=== PATIENT | female | born 1950 | race Caucasian/White ===

== ENCOUNTER 2020-07-24 13:57 | Outpatient (REF) | payer MEDICARE, SELFPAY ==
[2020-07-24 14:35] LABS: Appearance Urine CLEAR; Color Urine STRAW; Glucose Urine UA NEG (NEG); Leukocyte Esterase Urine NEG (NEG); Nitrite Urine NEG (NEG); Urine Blood NEG (NEG); Urine Ketones NEG (NEG); Urine Protein NEG (NEG-TRACE)
== END 2020-07-24 13:58 | disposition home or self-care (01) ==
LOC: HO.LAB 13:57
PROVIDERS: PCP Nurse Practitioner Family; Visit Provider Nurse Practitioner Family
DX: R31.9 Hematuria, unspecified (principal)
CPT/HCPCS: 81003

== ENCOUNTER 2020-08-10 14:26 | Outpatient (REF) | payer MEDICARE, OTHER, SELFPAY ==
[2020-08-13 01:52] LABS: HPV mRNA E6/E7 rflx Not Detected (Not Detected)
== END 2020-08-10 14:27 | disposition home or self-care (01) ==
LOC: HO.LAB 14:26
PROVIDERS: PCP Nurse Practitioner Family; Visit Provider Obstetrics & Gynecology
DX: N95.0 Postmenopausal bleeding (principal)
CPT/HCPCS: 36415; 87624; 88142; 99202

== ENCOUNTER 2020-08-19 10:53 | Outpatient (REF) | payer MEDICARE, OTHER, SELFPAY ==
--- NOTE | ~2020-08-19 | US_ITS ---
EXAMINATION: US PELVIS CLINICAL INFORMATION: Postmenopausal bleeding COMPARISON: None TECHNIQUE: Transabdominal pelvic ultrasound FINDINGS: Uterus: The uterus is anteverted and measures 5.4 x 1.9 x 3.3 cm. The double wall endometrial thickness is 2 mm. The uterus is smooth in contour and has normal myometrial echogenicity. No visible fibroid. Adnexa: The ovaries are not seen.. There is no pelvic ascites or fluid collection. US/US pelvic complete IMPRESSION: Normal-appearing uterus. Ovaries not seen.
== END 2020-08-19 10:54 | disposition home or self-care (01) ==
LOC: HO.US 10:53
PROVIDERS: Visit Provider Obstetrics & Gynecology
DX: N95.0 Postmenopausal bleeding (principal)
CPT/HCPCS: 76856

== ENCOUNTER → 2020-08-31 10:51 | Outpatient (BNVA) | payer MEDICARE, SELFPAY | PROVIDERS: PCP Nurse Practitioner Family; Visit Provider Obstetrics & Gynecology | CPT/HCPCS: Q3014 ==

== ENCOUNTER 2020-10-26 11:19 | Outpatient (REF) | payer MEDICARE, SELFPAY ==
[2020-10-26 12:35] LABS: MANUAL DIFF FLAG NO
[2020-10-26 12:40] LABS: Basophils Percent Auto 0.8 % (0-2); Eosinophils Absolute Auto 0.1 X10*3/uL (0.0-0.4); Eosinophils Percent Auto 1.4 % (0-4); Hematocrit 39.6 % (37-47); Hemoglobin 12.9 g/dl (12.0-16.0); Imm Gran Abs Auto 0.01 X10*3/uL (0.00-0.03); Imm Gran Pct Auto 0.2 % (0.0-0.4); Lymphocytes Absolute Auto 1.3 X10*3/uL (1.2-4.9); Lymphocytes Percent Auto 25.8 % (20-40); Mean Corpuscular HGB Conc 32.6 g/dl (31.0-35.0); Mean Corpuscular Volume 92.1 fL (80-98); Mean Platelet Volume 10.3 fL (9.4-12.3); Monocytes Absolute Auto 0.5 X10*3/uL (0.1-1.2); Monocytes Percent Auto 10.6 % (2-11); Neutrophils Percent Auto 61.2 % (45-73); Platelet Count 176 X10*3/uL (160-400); Red Cell Distribution Width 12.5 % (11.0-16.0); White Blood Count 4.9 X10*3/uL (4.8-10.8)
[2020-10-26 13:44] LABS: Alanine Aminotransferase 12 U/L (0-31); Albumin Level 4.1 g/dL (3.5-5.0); Alkaline Phosphatase 98 U/L (39-117); Anion Gap 11 (12-20); Aspartate Amino Transferase 21 U/L (5-31); Bilirubin Total 0.7 mg/dL (0.0-1.0); Blood Urea Nitrogen 21 mg/dL (9-16); Calcium 9.1 mg/dL (8.4-10.2); Carbon Dioxide 27 mmol/L (22-29); Chloride 106 mmol/L (96-108); Cholesterol 183 mg/dL; Estimated Glomerular Filt Rate > 60; Glucose Fasting 86 mg/dL (60-99); HDL Cholesterol 47 mg/dL; LDL Cholesterol Calculated 115 mg/dl; Potassium 4.3 mmol/L (3.3-5.1); Sodium 140 mmol/L (135-145); Total Protein 6.8 g/dL (6.5-8.0); Triglycerides 106 mg/dL
[2020-11-01 14:11] LABS: Vitamin D 25-OH, D2 <4 ng/mL; Vitamin D 25-OH, D3 27 ng/mL; Vitamin D 25-OH, Total 27 ng/mL (30-100)
== END 2020-10-26 11:20 | disposition home or self-care (01) ==
LOC: HO.LAB 11:19
PROVIDERS: PCP Internal Medicine; Visit Provider Internal Medicine
DX: N95.0 Postmenopausal bleeding (principal); E55.9 Vitamin D deficiency, unspecified; E78.5 Hyperlipidemia, unspecified; D64.9 Anemia, unspecified
CPT/HCPCS: 36415; 80053; 80061; 82306; 85025

== ENCOUNTER 2020-12-11 13:44 | Outpatient (REF) | payer MEDICARE, SELFPAY ==
--- NOTE | ~2020-12-11 | MM_ITS ---
EXAMINATION: MM SCREENING DIGITAL BREAST TOMOSYNTHESIS, BILATERAL CLINICAL INFORMATION: Screening. Asymptomatic. The lifetime risk of breast cancer based on the Tyrer-Cuzick Model is 5%. COMPARISON: Mammography: 04/20/2018, 11/21/2014, 11/19/2013 TECHNIQUE: Digital breast tomosynthesis is performed in both the craniocaudal and mediolateral oblique views along with computer-aided detection (CAD). Synthesized 2D images are generated from the tomosynthesis. FINDINGS: The breasts are heterogeneously dense, which may obscure small masses (ACR BI-RADS breast composition Category c). There are no significant masses, abnormal calcifications, or other abnormalities. Parenchymal pattern is similar to prior exams. No developing density. Skin contours are smooth. MM/MM tomosynthesis screening BI IMPRESSION: No mammographic evidence of malignancy. ASSESSMENT: BI-RADS 1: Negative RECOMMENDATION: Routine annual mammography screening. This patient's information was entered into a reminder system with a target due date for their next mammogram.
--- NOTE | ~2020-12-11 | MM_ITS ---
EXAMINATION: BONE DENSITOMETRY CLINICAL INDICATION: Osteoporosis. COMPARISON: Previous BD dated 04/20/2018 and baseline BD dated 10/17/2006. TECHNIQUE: Using a [employer] DXA System (software version: 13.1) manufactured by [employer], dual-energy x-ray absorptiometry was performed of the lumbar spine and left hip. The images are of good technical quality. Summary results are attached. FINDINGS: AP SPINE L1-L4: Current: BMD 0.739 g/cm2, Z-score -1.4, T-score -3.7, osteoporosis, 4.2% decrease from previous, 14.5% decrease from baseline (<5% change is not significant). Prior: BMD 0.771 g/cm2. Baseline: BMD 0.864 g/cm2. LEFT FEMUR, NECK: Current: BMD 0.687 g/cm2, Z-score -0.3, T-score -2.5, osteoporosis. Prior: BMD 0.724 g/cm2. Baseline: BMD 0.817 g/cm2. LEFT FEMUR, TOTAL: Current: BMD 0.677 g/cm2, Z-score -0.6, T-score -2.6, osteoporosis, 4.1% decrease from previous, 19.8% decrease from baseline (<5% change is not significant). Prior: BMD 0.706 g/cm2. Baseline: BMD 0.844 g/cm2. IDENTIFIED RISK FACTORS: Menopause, osteoporosis. HISTORY OF FRACTURE: None listed. MEDICATIONS: Calcium, vitamin D. MM/XR DEXA axial skeleton IMPRESSION: 1. DIAGNOSIS: Osteoporosis based on the lowest T-score value of -3.7 in the lumbar spine applying World Health Organization criteria. 2. 10-YEAR FRACTURE RISK PREDICTION, FRAX: Major osteoporotic fracture (clinical spine, forearm, hip or shoulder) 14.2%. Hip fracture 4.3%. 3. Treatment Recommendations: NOF guidelines recommend consideration for treatment in postmenopausal women and men age 50 and older presenting with the following: -A hip or vertebral (clinical or morphometric) fracture. -T-score less than or equal to -2.5 at the femoral neck or spine after appropriate evaluation to exclude secondary causes. -Low bone mass at the hip or spine and a 10-year fracture probability by FRAX of greater than or equal to 3% for hip fracture or greater than or equal to 20% for major osteoporotic fracture based on the [place] adapted WHO algorithm. 4. Other Recommendations: All treatment decisions require clinical judgment and consideration of individual patient factors, including patient preferences, comorbidities, previous drug use, risk factors not captured in the FRAX model (e.g. frailty, falls, vitamin D deficiency, increased bone turnover, interval significant decline in bone density) and possible under or overestimation of fracture risk by FRAX. Additional medical evaluation for secondary cause of low bone mineral density may be appropriate. FUTURE SCAN RECOMMENDATION: People with diagnosed cases of osteoporosis or at high risk for fracture should have regular bone mineral density tests. For patients eligible for Medicare, routine testing is allowed once every 2 years. The testing frequency can be increased to one year for patients who have rapidly progressing disease, those who are receiving or discontinuing medical therapy to restore bone mass, or have additional risk factors.
== END 2020-12-11 13:45 | disposition home or self-care (01) ==
LOC: HO.MAMMO 13:44
PROVIDERS: Visit Provider Internal Medicine
DX: Z12.31 Encounter for screening mammogram for malignant neoplasm of breast (principal); Z13.820 Encounter for screening for osteoporosis; M81.0 Age-related osteoporosis without current pathological fracture; Z78.0 Asymptomatic menopausal state; Z79.899 Other long term (current) drug therapy
CPT/HCPCS: 77063; 77067; 77080

== ENCOUNTER 2021-10-25 15:37 | Outpatient (REF) | payer MEDICARE, SELFPAY ==
[2021-10-26 08:35] LABS: Lyme Abs Screen <0.90 index
== END 2021-10-25 15:38 | disposition home or self-care (01) ==
LOC: HO.LAB 15:37
PROVIDERS: PCP Internal Medicine; Visit Provider Physician Assistant
DX: T14.8XXA Other injury of unspecified body region, initial encounter (principal); W57.XXXA Bitten or stung by nonvenomous insect and other nonvenomous arthropods, initial encounter
CPT/HCPCS: 36415; 86617; 86618

== ENCOUNTER 2022-01-03 16:02 | Outpatient (REF) | payer MEDICARE, SELFPAY ==
[2022-01-05 04:57] LABS: Lyme Abs Screen <0.90 index
== END 2022-01-03 16:03 | disposition home or self-care (01) ==
LOC: HO.LAB 16:02
PROVIDERS: PCP Internal Medicine; Visit Provider Internal Medicine
DX: T14.8XXA Other injury of unspecified body region, initial encounter (principal); W57.XXXA Bitten or stung by nonvenomous insect and other nonvenomous arthropods, initial encounter
CPT/HCPCS: 36415; 86617; 86618

== ENCOUNTER → 2022-03-14 12:00 | Outpatient (REF) | payer MEDICARE, SELFPAY ==
--- NOTE | 2022-03-14 12:06 | ECG_ITS ---
Test Reason : CHEST PAIN Blood Pressure : / mmHG Vent. Rate : 091 BPM Atrial Rate : 091 BPM P-R Int : 162 ms QRS Dur : 084 ms QT Int : 368 ms P-R-T Axes : 071 044 034 degrees QTc Int : 452 ms Normal sinus rhythm Possible Left atrial enlargement RSR' or QR pattern in V1 suggests right ventricular conduction delay Borderline ECG No previous ECGs available Referred By: Lisa Thomas Electronically Signed By:PAULA BLOOM MD
[2022-03-14 14:28] LABS: Vitamin D 25-OH Total 23.2 ng/mL (>30)
== END ==
LOC: HO.CARD 12:00
PROVIDERS: PCP Internal Medicine; Visit Provider Internal Medicine
DX: R07.9 Chest pain, unspecified (principal); E55.9 Vitamin D deficiency, unspecified
CPT/HCPCS: 36415; 82306; 93005

== ENCOUNTER → 2022-05-26 10:48 | Outpatient (BNVA) | payer MEDICARE, SELFPAY | PROVIDERS: PCP Internal Medicine; Referring Provider Internal Medicine; Visit Provider Internal Medicine Cardiovascular Disease | DX: R07.9 Chest pain, unspecified (principal); J30.9 Allergic rhinitis, unspecified | CPT/HCPCS: 93005; 99202 ==

== ENCOUNTER → 2022-05-30 10:37 | Outpatient (BNVA) | payer MEDICARE, SELFPAY | PROVIDERS: PCP Internal Medicine; Visit Provider Internal Medicine Rheumatology | DX: M81.0 Age-related osteoporosis without current pathological fracture (principal); I10 Essential (primary) hypertension; E78.5 Hyperlipidemia, unspecified; E55.9 Vitamin D deficiency, unspecified; Z78.0 Asymptomatic menopausal state | CPT/HCPCS: 36415; 80053; 84100; 84443; 85025; 85652; 86140; 99202 ==

== ENCOUNTER 2022-05-30 11:48 | Outpatient (REF) | payer MEDICARE, SELFPAY ==
[2022-05-30 13:28] LABS: MANUAL DIFF FLAG NO
[2022-05-30 13:34] LABS: Basophils Absolute Auto 0.1 X10*3/uL (0.0-0.2); Basophils Percent Auto 1.1 % (0-2); Eosinophils Absolute Auto 0.1 X10*3/uL (0.0-0.4); Eosinophils Percent Auto 1.1 % (0-4); Hematocrit 39.2 % (37.0-47.0); Hemoglobin 12.4 g/dl (12.0-16.0); Imm Gran Abs Auto 0.01 X10*3/uL (0.00-0.03); Imm Gran Pct Auto 0.2 % (0.0-0.4); Lymphocytes Absolute Auto 1.1 X10*3/uL (1.2-4.9); Lymphocytes Percent Auto 25.2 % (20-40); Mean Corpuscular HGB Conc 31.6 g/dl (31.0-35.0); Mean Corpuscular Hemoglobin 29.6 pg (27.0-33.0); Mean Corpuscular Volume 93.6 fL (80.0-98.0); Mean Platelet Volume 9.8 fL (9.4-12.3); Monocytes Absolute Auto 0.5 X10*3/uL (0.1-1.2); Monocytes Percent Auto 11.1 % (2-11); Neutrophils Absolute Auto 2.7 x10*3/uL (2.0-8.3); Neutrophils Percent Auto 61.3 % (45-73); Platelet Count 187 X10*3/uL (160-400); Red Blood Count 4.19 X10*6/uL (4.20-5.50); Red Cell Distribution Width 12.4 % (11.0-16.0); White Blood Count 4.4 X10*3/uL (4.8-10.8)
[2022-05-30 13:58] LABS: Alanine Aminotransferase 13 U/L (0-31); Albumin Level 3.9 g/dL (3.5-5.0); Alkaline Phosphatase 93 U/L (39-117); Anion Gap 10 (12-20); Aspartate Amino Transferase 21 U/L (5-31); Bilirubin Total 0.5 mg/dL (0.0-1.0); Blood Urea Nitrogen 25 mg/dL (9-16); C Reactive Protein < 0.10 mg/dL (< or = 0.50); Carbon Dioxide 27 mmol/L (22-29); Chloride 107 mmol/L (96-108); Estimated Glomerular Filt Rate > 60; Glucose Random 85 mg/dL (60-115); Phosphorus 2.7 mg/dL (2.7-4.5); Potassium 4.2 mmol/L (3.3-5.1); Sodium 140 mmol/L (135-145); Total Protein 6.6 g/dL (6.5-8.0)
[2022-05-30 14:06] LABS: TSH reflex Free T4 1.45 uIU/mL (0.32-4.0)
[2022-05-30 14:16] LABS: Erythrocyte Sedimentation Rate 5 MM/HR (0-20)
== END 2022-05-30 11:49 | disposition home or self-care (01) ==
LOC: HO.10HDL 11:48
PROVIDERS: Visit Provider Internal Medicine Rheumatology
DX: M81.0 Age-related osteoporosis without current pathological fracture (principal)
CPT/HCPCS: 36415; 80053; 84100; 84443; 85025; 85652; 86140

== ENCOUNTER → 2022-07-08 09:27 | Outpatient (REF) | payer MEDICARE, SELFPAY ==
--- NOTE | 2022-07-08 09:30 | CA_ITS ---
Transthoracic Echocardiogram Patient (Last, First, Middle): Lula Kaur J Gender: Female Date of : 1950 Age: 71 Procedure Date: 07/08/2022 Procedure Type: Transthoracic Echocardiogram Location: OP Height: 152.4 cm Weight: 44.45 kg BSA: 1.38 m2 Heart Rate: bpm BP: 150 / 100 mmHg Line Staker: TO Referring MD: Leonel Estrada MD Symptoms: R07.9 - Chest pain, unspecified Study Quality: Fair Conclusions: - Normal left ventricular size and systolic function. There is mildly increased left ventricular wall thickness. The visually estimated ejection fraction is between 55-60%. - E/E prime ratio is <8, consistent with normal filling pressures. - Normal right ventricular cavity size and systolic function. Findings Left Ventricle Normal left ventricular size and systolic function. There is mildly increased left ventricular wall thickness. The visually estimated ejection fraction is between 55-60%. There is no evidence of regional wall motion abnormalities. Abnormal diastolic function is noted. Spectral Doppler is indicative of an impaired relaxation filling pattern. E/E prime ratio is <8, consistent with normal filling pressures. Right Ventricle Normal right ventricular cavity size and systolic function. Atria The left atrium is normal in size. The right atrium is normal in size. Aortic Valve There is a normal trileaflet aortic valve. There is mild calcification of the aortic valve. There is no aortic valve stenosis. There is no aortic valve regurgitation. Mitral Valve The mitral valve appears normal. There is mild mitral valve regurgitation. There is no mitral valve stenosis. Pulmonic Valve The pulmonic valve is likely normal. Tricuspid Valve Normal tricuspid valve structure and function. There is mild to moderate tricuspid valve regurgitation. Normal right atrial pressure. There is no evidence of pulmonary hypertension. Great Vessels All visible segments of the aorta are normal in size. The pulmonary artery was not well visualized. The pulmonary artery is moderately dilated. Venous The inferior vena cava is normal in size and collapses greater than 50% with inspiration. Pericardium/Pleural There is no evidence of pericardial effusion. Prior Study Comparison Changes noted compared to prior study dated: 04/10/2017. No obvious aortic regurgitation noted on this study. Measurements 2D Linear Measurements IVSd: 1.03 0.6-0.9/0.6-1.0 cm LVIDd: 3.60 3.9-5.3/4.2-5.9 cm LVIDd Index: 2.61 2.4-3.2/2.2-3.1 cm/m2 LVIDs: 2.28 2.0-3.6 cm LVPWd: 0.91 0.7-1.1 cm LA Diam: 2.50 2.7-3.8/3.0-4.0 cm LAIDs Index: 1.81 1.5-2.3 cm/m2 LV Mass: 127.83 67-162/88-224 g LV Mass Index: 92.63 43-95/49-115 g/m2 LVOT Diam: 1.80 3.0+(-)1.3 cm 2D Systolic Function EF 4C: 58.70 >55% EF 2C: 59.40 >55% EF BiP: 59.20 >55% Mitral Valve MV Pk E: 0.48 MV PK A: 0.93 MV Decel Time: 175.00 E/A: 0.50 E'Lateral: 6.20 E'Medial: 5.00 E/E' Med: 9.50 E/E' Lat: 7.70 PHT: 51.00 MVA PHT: 4.[address] [place]: 2.72 Aortic Valve AoV Pk Clay: 1.31 AoV Mn Clay: 0.81 AoV VTI: 0.22 AoV Pk Grad: 7.00 Aov Mn Grad: 3.00 MONET Cont.VTI: 1.77 LVOT LVOT Pk Clay: 0.77 LVOT Mn Clay: 0.50 LVOT VTI: 0.15 LVOT Pk Grad: 2.00 LVOT Mn Grad: 1.00 LVOT Diam: 1.80 LVOT Area: 2.54 Diastolic Function MV Pk E: 0.48 MV Pk A: 0.93 E/A: 0.50 E'Medial: 5.00 E/E' Med: 9.50 E' Laterial: 6.20 E/E' Lat: 7.70 Right Ventricle TAPSE (mm): 23.00 TVS' Clay: 17.20 Tricuspid Valve TR Pk Clay: 2.78 TR Pk Grad: 31.00 RA Press: 3.00 RVSP: 34.00 Great Vessels Aorta Sinus of Valsalva: 3.17 2.0-3.5 cm Ao Asc: 3.00 2.1-3.4 cm Updated in Other Vendor System with Status of Final Kamlesh Thompson MD electronically signed on 07/09/2022 4:42:03 PM with status of Final
--- NOTE | 2022-07-08 09:30 | CA_ITS ---
Acquisition Time: 2022-07-08 10:54:26 Total Exercise Time: 00:03:57 Test Indications: chest pain Medications: Protocol: SOFIA Max HR: 184 BPM 125% of Pred: 147 BPM Max BP: 152/084 mmHG Max Work Load: 4.7 METS Exercise stress test using Sofia protocol total of 3 min 57 sec Pt s HR rapidly went up 184 125% of TAPHR. m METS 4.7. Upsloping ST depressions in leads V3-V6. Occasional PAC's. SOB, unable to finish the test do to Hr and fastigue. Normotensive response to test. HR down to Baseline. Test reviewed with Dr. Thompson Referred By: Leonel Estrada Overread By: Xenia Knowles NP
== END ==
LOC: HO.CARD 09:27
PROVIDERS: PCP Internal Medicine; Visit Provider Internal Medicine Cardiovascular Disease
DX: R07.9 Chest pain, unspecified (principal)
CPT/HCPCS: 93017; 93306

== ENCOUNTER → 2022-07-21 09:28 | Outpatient (REF) | payer MEDICARE, SELFPAY ==
--- NOTE | ~2022-07-21 | NM_ITS ---
Myocardial perfusion study Indication: Chest pain to evaluate for myocardial ischemia Technique: The patient was brought in for a Lexiscan perfusion study on 07/21/2022. Patient performed low-level exercise and was injected 0.4 mg of Lexiscan intravenously. Within a minute of injection, 25 mCi of sestamibi was given intravenously. Images were obtained using the SPECT gamma camera interlaced with the gating device. Images were obtained in supine position. Resting perfusion study was performed on 07/22/2022. Patient was administered 25 mCi of sestamibi intravenously at rest. Images were then obtained in supine position. Y-cm. Images were processed with the software and compared side to side in short axis, horizontal long axis and vertical long axis views. Findings: The stress perfusion study showed non attenuated images show mildly reduced uptake in the anterior and moderately reduced uptake in the distal anterior as well as mildly apex and distal lateral wall of the LV myocardium. Attenuated images show mildly reduced uptake in the distal anterior and distal septal as well as the apex of the LV myocardium.. The gated study shows normal LV systolic function with calculated LVEF of 73%. LV cavity is normal in size. The gated study shows normal systolic wall thickening and contraction of segments. Resting study shows nontender images show improved uptake in the anterior, distal anterior as well as apex of the LV myocardium. Attenuation corrected images also show improved uptake in the distal anterior, distal septal and apical LV myocardium. Gating at rest reveals normal systolic wall motion with ejection fraction at 66%. The findings are consistent with mild intensity reversible defect of the distal anterior, distal septal and apical wall suggestive of ischemia in mid to distal LAD territory. NM/NM cardiolite stress test Impression: 1. Myocardial perfusion imaging study shows mid to distal LAD territory ischemia 2. Gated LVEF is 66% 3. Transient ischemic dilatation not present EKG nondiagnostic for ischemia
--- NOTE | 2022-07-21 09:31 | CA_ITS ---
Acquisition Time: 2022-07-21 09:40:54 Total Exercise Time: 00:02:00 Test Indications: CHEST PAIN, SOB Medications: Protocol: LEXISCAN Max HR: 136 BPM 92% of Pred: 147 BPM Max BP: 162/090 mmHG Max Work Load: 1.0 METS Pharmacological stress test using Lexiscan while sitting and kicking her feet. Pt tolerated well, denies any SOB or CP. EKG with occasional PVC's non-diagnostic for ischemia. Nuclear images to follow. Hypertensive response to test, Test reviewed with Dr. Estrada. Referred By: Leonel Estrada Overread By: Xenia Knowles NP
== END ==
LOC: HO.CARD 09:28
PROVIDERS: Visit Provider Internal Medicine Cardiovascular Disease
DX: R07.9 Chest pain, unspecified (principal); R94.39 Abnormal result of other cardiovascular function study
CPT/HCPCS: 78452; 93017; A9500; J0280; J2785

== ENCOUNTER 2022-08-06 10:43 | Outpatient (REF) | payer MEDICARE, SELFPAY ==
[2022-08-06 11:43] LABS: Anion Gap 9 (12-20); Blood Urea Nitrogen 21 mg/dL (9-16); Calcium 8.7 mg/dL (8.4-10.2); Carbon Dioxide 28 mmol/L (22-29); Chloride 108 mmol/L (96-108); Estimated Glomerular Filt Rate > 60; Glucose Random 92 mg/dL (60-115); Potassium 4.2 mmol/L (3.3-5.1); Sodium 141 mmol/L (135-145)
== END 2022-08-06 10:44 | disposition home or self-care (01) ==
LOC: HO.LAB 10:43
PROVIDERS: PCP Internal Medicine; Visit Provider Internal Medicine Cardiovascular Disease
DX: R07.9 Chest pain, unspecified (principal)
CPT/HCPCS: 36415; 80048

== ENCOUNTER → 2022-10-20 13:44 | Outpatient (BNVA) | payer MEDICARE, SELFPAY | PROVIDERS: PCP Internal Medicine; Referring Provider Internal Medicine; Visit Provider Nurse Practitioner Family | DX: I25.10 Atherosclerotic heart disease of native coronary artery without angina pectoris (principal); I10 Essential (primary) hypertension; E78.5 Hyperlipidemia, unspecified; R07.9 Chest pain, unspecified | CPT/HCPCS: 99212 ==

== ENCOUNTER → 2022-10-25 09:47 | Outpatient (BNVA) | payer MEDICARE, SELFPAY | PROVIDERS: PCP Internal Medicine; Visit Provider Internal Medicine Rheumatology | DX: M81.0 Age-related osteoporosis without current pathological fracture (principal); M79.651 Pain in right thigh | CPT/HCPCS: 99212 ==

== ENCOUNTER → 2022-11-01 11:00 | Outpatient (REF) | payer MEDICARE, SELFPAY ==
--- NOTE | ~2022-11-01 | NM_ITS ---
EXAMINATION: BONE SCAN OF THE LOWER THORACIC SPINE TO THE KNEES CLINICAL INFORMATION: Right thigh pain. COMPARISON: No previous bone scan or recent radiographs are available for comparison. TECHNIQUE: Multiple gamma scintillation camera images of the lower thoracic spine to the proximal tibias in multiple projections were performed 2.5 hours following the intravenous administration of 17 mCi Tc-99m MDP. FINDINGS: There are small foci of mildly increased activity in the patellar compartments of both knees, slightly more intensely on the left. There is a very faint focus of increased activity in the posterior cortical surface of the proximal right femur. This is best visualized on the posterior and right lateral spot views. No other osseous abnormalities are present. A small focus of residual radiopharmaceutical at the injection site in the left antecubital fossa is noted. The urinary bladder and faint visualization of both kidneys are noted. NM/NM bone scan limited area IMPRESSION: 1. A small mild posterior cortical abnormality is present in the proximal shaft of the right femur. A healing traumatic or stress related lesion may be responsible for this finding. If plain radiographs do not reveal an explanation for this faint abnormality, this may be further characterized with MRI performed without and with intravenous contrast. 2. Mild abnormalities in the patellar compartments of both knees are nonspecific but likely degenerative in etiology. Clinical correlation is recommended.
== END ==
LOC: HO.NUCMED 11:00
PROVIDERS: PCP Internal Medicine; Visit Provider Internal Medicine Rheumatology
DX: M79.651 Pain in right thigh (principal)
CPT/HCPCS: 78300; A9503

== ENCOUNTER 2022-12-22 12:23 | Outpatient (REF) | payer MEDICARE, OTHER, SELFPAY ==
--- NOTE | ~2022-12-22 | MM_ITS ---
EXAMINATION: MM SCREENING DIGITAL BREAST TOMOSYNTHESIS, BILATERAL CLINICAL INFORMATION: Screening. Asymptomatic. The lifetime risk of breast cancer based on the Tyrer-Cuzick Model is 6%. COMPARISON: Mammography: This study is compared with prior exams dating back to 2018. TECHNIQUE: Digital breast tomosynthesis is performed in both the craniocaudal and mediolateral oblique views along with computer-aided detection (CAD). Synthesized 2D images are generated from the tomosynthesis. FINDINGS: The breasts are heterogeneously dense, which may obscure small masses (ACR BI-RADS breast composition Category c). There are no significant masses, abnormal calcifications, or other abnormalities. MM/MM tomosynthesis screening BI IMPRESSION: No mammographic evidence of malignancy. ASSESSMENT: BI-RADS BI-RADS 1 - Negative RECOMMENDATION: Routine annual mammography screening. 1 year F/U This examination should not preclude the clinical evaluation of a suspicious palpable abnormality. This patient's information was entered into a reminder system with a target due date for their next mammogram.
== END 2022-12-22 12:24 | disposition home or self-care (01) ==
LOC: HO.MAMMO 12:23
PROVIDERS: PCP Internal Medicine; Visit Provider Internal Medicine
DX: Z12.31 Encounter for screening mammogram for malignant neoplasm of breast (principal)
CPT/HCPCS: 77063; 77067

== ENCOUNTER → 2022-12-22 12:30 | Outpatient (BNV) | payer MEDICARE, OTHER, SELFPAY | PROVIDERS: PCP Internal Medicine; Visit Provider Radiology Diagnostic Radiology | DX: Z12.31 Encounter for screening mammogram for malignant neoplasm of breast (principal) | CPT/HCPCS: 77063; 77067 ==

== ENCOUNTER 2022-12-28 14:24 | Outpatient (REF) | payer MEDICARE, OTHER, SELFPAY ==
--- NOTE | ~2022-12-28 | MM_ITS ---
EXAMINATION: BONE DENSITOMETRY CLINICAL INDICATION: Osteoporosis. COMPARISON: Previous BD dated 12/11/2020 and baseline BD dated 10/17/2006. TECHNIQUE: Using a [employer] DXA System (software version: 13.1) manufactured by [employer], dual-energy x-ray absorptiometry was performed of the lumbar spine and left hip. The images are of good technical quality. Summary results are attached. FINDINGS: LEFT FEMUR, NECK: Current: BMD 0.692 g/cm2, Z-score -0.2, T-score -2.5, osteoporosis. Prior: BMD 0.687 g/cm2. Baseline: BMD 0.817 g/cm2. LEFT FEMUR, TOTAL: Current: BMD 0.679 g/cm2, Z-score -0.5, T-score -2.6, osteoporosis, 0.3% increase from previous, 19.5% decrease from baseline (<5% change is not significant). Prior: BMD 0.677 g/cm2. Baseline: BMD 0.844 g/cm2. AP SPINE L1-L4: Current: BMD 0.724 g/cm2, Z-score -1.4, T-score -3.8, osteoporosis, 2.0% decrease from previous, 16.2% decrease from baseline (<5% change is not significant). Prior: BMD 0.739 g/cm2. Baseline: BMD 0.864 g/cm2. IDENTIFIED RISK FACTORS: Menopause, low body weight, osteoporosis. HISTORY OF FRACTURE: None listed. MEDICATIONS: Calcium, vitamin D, bisphosphonate. MM/XR DEXA axial skeleton IMPRESSION: 1. DIAGNOSIS: Osteoporosis based on the lowest T-score value of -3.8 in the lumbar spine applying World Health Organization criteria. 2. 10-YEAR FRACTURE RISK PREDICTION, FRAX: According to the guidelines, FRAX calculation should only be performed on patients in the osteopenia bone density category. Therefore, FRAX was not performed on this patient. 3. Treatment Recommendations: NOF guidelines recommend consideration for treatment in postmenopausal women and men age 50 and older presenting with the following: -A hip or vertebral (clinical or morphometric) fracture. -T-score less than or equal to -2.5 at the femoral neck or spine after appropriate evaluation to exclude secondary causes. -Low bone mass at the hip or spine and a 10-year fracture probability by FRAX of greater than or equal to 3% for hip fracture or greater than or equal to 20% for major osteoporotic fracture based on the [place] adapted WHO algorithm. 4. Other Recommendations: All treatment decisions require clinical judgment and consideration of individual patient factors, including patient preferences, comorbidities, previous drug use, risk factors not captured in the FRAX model (e.g. frailty, falls, vitamin D deficiency, increased bone turnover, interval significant decline in bone density) and possible under or overestimation of fracture risk by FRAX. Additional medical evaluation for secondary cause of low bone mineral density may be appropriate. FUTURE SCAN RECOMMENDATION: People with diagnosed cases of osteoporosis or at high risk for fracture should have regular bone mineral density tests. For patients eligible for Medicare, routine testing is allowed once every 2 years. The testing frequency can be increased to one year for patients who have rapidly progressing disease, those who are receiving or discontinuing medical therapy to restore bone mass, or have additional risk factors.
== END 2022-12-28 14:25 | disposition home or self-care (01) ==
LOC: HO.MAMMO 14:24
PROVIDERS: Absent Provider Internal Medicine Rheumatology; PCP Internal Medicine; Visit Provider Internal Medicine Rheumatology
DX: Z13.820 Encounter for screening for osteoporosis (principal); M81.0 Age-related osteoporosis without current pathological fracture; Z78.0 Asymptomatic menopausal state
CPT/HCPCS: 77080

== ENCOUNTER → 2022-12-28 14:30 | Outpatient (BNV) | payer OTHER, SELFPAY | PROVIDERS: Absent Provider Internal Medicine Rheumatology; PCP Internal Medicine; Visit Provider Radiology Diagnostic Radiology | DX: M81.0 Age-related osteoporosis without current pathological fracture (principal) | CPT/HCPCS: 77080 ==

== ENCOUNTER 2022-12-28 16:30 | Outpatient (REF) | payer MEDICARE, OTHER, SELFPAY ==
--- NOTE | ~2022-12-28 | MR_ITS ---
EXAMINATION: MR FEMUR WITHOUT AND WITH CONTRAST, RIGHT CLINICAL INFORMATION: Right thigh pain. Weakness. Abnormal finding on prior bone scan. COMPARISON: Bone scan dated 11/01/2022. TECHNIQUE: Multisequence MR imaging of the right femur was obtained before and after the IV administration of 4 mL Gadavist contrast on a high field strength scanner. FINDINGS: BONE: No abnormal marrow signal. No stress reaction, fracture, or avascular necrosis. No concerning lytic or blastic osseous lesion. No postcontrast enhancement. No lesion to correspond with the prior bone scan findings. MUSCLES/TENDONS: Minimally increased T2 signal adjacent to the gluteus minimus tendon, consistent with minimal tendinosis. No measurable muscle or tendon tear. No postcontrast enhancement to suggest acute injury. LIGAMENTS: Intra-articular right knee ligaments not well visualized on large [id number] imaging. SOFT TISSUES: No abnormal soft tissue mass or fluid collection. The visualized intrapelvic structures are grossly unremarkable. MR/MR femur RT wo/w con IMPRESSION: 1. No concerning lytic or blastic osseous lesion to correspond with the prior bone scan findings. 2. Minimal gluteus minimus tendinosis without a measurable tendon tear. 3. No acute osseous abnormality. No stress reaction, fracture, or avascular necrosis.
== END 2022-12-28 16:31 | disposition home or self-care (01) ==
LOC: HO.MRI 16:30
PROVIDERS: PCP Internal Medicine; Visit Provider Internal Medicine Rheumatology
DX: M79.651 Pain in right thigh (principal)
CPT/HCPCS: 73720; A9585

== ENCOUNTER 2023-01-12 10:39 | Outpatient (AMB) | payer MEDICARE, OTHER, SELFPAY ==
[2023-01-12 10:48] VITALS: BP 110/70; BMI 18.9
--- NOTE | 2023-01-12 10:48 | MHC.PC.OV ---
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 Accompanied by: Self / Same As Patient Allergies No Known Allergies Allergy (Verified 01/12/23 11:04) Medication List - Last Reconciled 01/12/23 by Lisa Thomas MD alendronate 70 mg PO QWEEK aspirin 81 mg PO DAILY atorvastatin (Lipitor) 20 mg PO BEDTIME calcium carbonate 600 mg PO BID 90 days cholecalciferol (vitamin D3) 50 mcg PO DAILY 90 days loratadine (Allergy Relief (loratadine)) 10 mg PO DAILY PRN magnesium 200 mg PO DAILY metoprolol succinate ER 25 mg PO DAILY Tobacco use date assessed: 01/12/23 Fall risk assessment: No Falls in past year Last assessed Fall Risk: 01/12/23 Dental Screening Dental Screen Date: 01/12/23 Did you have a dental visit in the last 12 months?: Yes Did you have a dental problem in the last 6 months where you did not have access to dental care?: No Was dental information given to patient?: Patient has dentist HPI HPI Comments History of Present Illness Details This is a 72-year-old female with osteoporosis, hyperlipidemia, allergic rhinitis and low vitamin-D that comes today for follow-up on her conditions. On alendronate once a week for her osteoporosis and had bone density last month. Osteoporosis is follow by Rheumatology. On statins for elevated cholesterol which has been stable. Allergic rhinitis well control with antihistamines as needed. On vitamin-D supplements for her low vitamin-D. No chest pain or shortness of breath. [facility] Medical History Age related osteoporosis Allergic rhinitis HTN (hypertension) Hyperlipemia Hypovitaminosis D Post-menopausal bleeding Skin lesion Surgical History H/O colonoscopy History of wisdom tooth extraction Family History Father CVD (cardiovascular disease) Stroke Staph infection Mother Hypertension CVD (cardiovascular disease) Non-alcoholic cirrhosis Brother Healthy adult Social History Housing: House Alcohol intake: never Patient Tobacco Use Status: Never used Tobacco e-Cigarette/Vaping Use: Never Used Second Hand Smoke Exposure: No service: No Current occupational status: employed Current occupational exposures/hazards: No Gender identity: Female Cognitive needs: No Hearing needs: No Vision needs: Yes Female Reproductive History Menstrual Age of Menarche: 10 Questionnaire PHQ-9 Over the last 2 weeks, how often have you been bothered by any of the following problems? 1. Little interest or pleasure in doing things: not at all 2. Feeling down, depressed, or hopeless: not at all 3. Trouble falling or staying asleep, or sleeping too much: not at all 4. Feeling tired or having little energy: not at all 5. Poor appetite or overeating: not at all 6. Feeling bad about yourself - or that you are a failure or have let yourself or your family down: not at all 7. Trouble concentrating on things, such as reading the newspaper or watching television: not at all 8. Moving or speaking so slowly that other people could have noticed. Or the opposite - being so fidgety or restless that you have been moving around a lot more than usual: not at all 9. Thoughts that you would be better off or of hurting yourself in some way: not at all Total score: 0 Depression Screening Interpretation: Negative 40553 - PHQ-9 Billing: Yes Source: Developed by Drs. Maurice Abrenathy, Carmen Golden, Trung Betancourt and colleagues, with an educational glenroy from [employer]. Thrive Questionnaire Date Thrive assessed: 07/15/22 JAZMINE-7 AMB Questionnaire JAZMINE-7 Date JAZMINE - 7 assessed: 01/12/23 Feeling nervous, anxious, or on edge: 0 = Not at all Not being able to stop or control worryin = Not at all Worrying too much about different things: 0 = Not at all Trouble relaxin = Not at all Being so restless that it is hard to sit still: 0 = Not at all Becoming easily annoyed or irritable: 0 = Not at all Feeling afraid as if something awful might happen: 0 = Not at all Total JAZMINE-7 score (0-4 normal; 5-9 mild; 10-14 moderate; 15-21 severe): 0 Source: Developed by Drs. Maurice Abernathy, Carmen Golden, Trung Betancourt and colleagues, with an educational glenroy from [employer]. JAZMINE-7 Assessment Billing JAZMINE-7 Assessment Tool: JAZMINE-7 Assessment 27691 Review of Systems Const All systems reviewed & are unremarkable except as noted in HPI and below Eyes Reports no additional complaints, Denies change in vision and Denies other visual disturbances Card Denies chest pain at rest, Denies chest pain with activity, Denies edema, Denies irregular heart rhythm, Denies claudication, Denies dyspnea, Denies dyspnea on exertion, Denies orthopnea, Denies paroxysmal nocturnal dyspnea and Denies slow heart rate Resp Denies cough, Denies dyspnea and Denies dyspnea on exertion GI Denies abdominal pain, Denies change in bowel habits, Denies excessive flatus, Denies nausea and Denies vomiting Denies urinary incontinence, Denies urinary hesitancy and Denies urinary urgency Musc Denies abnormal gait, Denies atrophy, Denies deformity and Denies limited range of motion Skin/Breast Denies bleeding lesions, Denies changing lesions and Denies rash Neuro Denies abnormal gait and Denies lack of coordination Physical exam (Primary Care) Vital Signs: Last Vital Signs BP 110/70 01/12/23 10:48 BMI result Body Mass Index 18.9 Tobacco/Smoking Status: Tobacco use Status Tobacco use date assessed 01/12/23 01/12/23 10:53 Patient Tobacco Use Status Never used Tobacco 01/12/23 10:53 e-Cigarette/Vaping Use Never Used 01/12/23 10:53 PHQ-9: PHQ-9 Score PHQ-9: Total score 0 01/12/23 11:09 Depression Screening Interpretation: Negative Thrive Assessment: Date of Thrive Assessment Date Thrive assessed 07/15/22 01/12/23 10:53 Eyes General: appearance normal, both eyes and all related structures Eyelids: Yes eyelids normal Conjunctivae: conjunctivae normal Neck Neck: Yes normal visual inspection and Yes supple Resp Effort & Inspection: normal respiratory effort Auscultation: clear to auscultation bilaterally Cardio Jugular venous distension: no JVD Rate: regular rate Rhythm: regular rhythm Heart sounds: S1 normal heart sound present and S2 normal heart sound present Extrem General: Yes full ROM Assessment and Plan Assessment & Plan (1) Hypovitaminosis D: Code(s): E55.9 - Vitamin D deficiency, unspecified Plan: Continue vitamin-D supplements (2) Age related osteoporosis: Code(s): M81.0 - Age-related osteoporosis without current pathological fracture Qualifiers: Presence of current pathological fracture: without current pathological fracture Qualified Code(s): M81.0 - Age-related osteoporosis without current pathological fracture Plan: Continue alendronate once a week. (3) Allergic rhinitis: Code(s): J30.9 - Allergic rhinitis, unspecified Plan: Continue antihistamines as needed. (4) Hyperlipemia: Code(s): E78.5 - Hyperlipidemia, unspecified Plan: Continue statins. Coding Level of Care Code Est Pt Level 4 (06223) Diagnoses Hypovitaminosis D E55.9 Age related osteoporosis M81.0 Presence of current pathological fracture: without current pathological fracture Allergic rhinitis J30.9 Hyperlipemia E78.5 Additional Codes JAZMINE-7 Assessment Billing - JAZMINE-7 Assessment Tool: JAZMINE-7 Assessment 99297 ([id number]) Time Spent (min) 22
== END 2023-01-12 11:21 | disposition home or self-care (01) ==
PROVIDERS: PCP Internal Medicine; Visit Provider Internal Medicine
DX: E55.9 Vitamin D deficiency, unspecified (principal); M81.0 Age-related osteoporosis without current pathological fracture; J30.9 Allergic rhinitis, unspecified; E78.5 Hyperlipidemia, unspecified
CPT/HCPCS: 99214

== ENCOUNTER 2023-04-27 10:32 | Outpatient (AMB) | payer MEDICARE, OTHER, SELFPAY ==
[2023-04-27 10:35] VITALS: BP 110/70; PULSE 82; BMI 19.0
--- NOTE | 2023-04-27 10:35 | A.OFFVIS_ITS ---
Intake Vital Signs 04/27/23 10:35 Height 5 ft Weight 97 lb 7.109 oz BMI 19.0 BP 110/70 Blood Pressure Location Lt brachial Position Sitting Pulse 82 Intake Visit Reasons: 6 month fu Intake Note: 6 mth f/up, PT its feeling fine. 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 She has been doing well. She has had no recurrent significant chest discomfort at this point in time. She remains active and tries to walk as much as possible. She denies any symptoms of exertional chest pain or shortness of breath. No palpitations, lightheadedness, syncope. Taking all her medications. No recent lipid panel. [facility] Medical History Skin lesion Hypovitaminosis D Allergic rhinitis Age related osteoporosis HTN (hypertension) Hyperlipemia Post-menopausal bleeding Surgical History H/O colonoscopy History of wisdom tooth extraction Family History Father CVD (cardiovascular disease) Stroke Staph infection Mother Hypertension CVD (cardiovascular disease) Non-alcoholic cirrhosis Brother Healthy adult Social History Housing: House Alcohol intake: never Patient Tobacco Use Status: Never used Tobacco e-Cigarette/Vaping Use: Never Used Second Hand Smoke Exposure: No service: No Current occupational status: employed Current occupational exposures/hazards: No Gender identity: Female Cognitive needs: No Hearing needs: No Vision needs: Yes Female Reproductive History Menstrual Age of Menarche: 10 Review of Systems Const Reports chills, Reports fatigue, Reports fever(s), Reports frequent falls, Reports weakness, Reports weight gain and Reports weight loss ENT Reports dizziness Card Reports chest pain, Reports leg edema, Reports lightheadedness, Reports palpitations, Reports dyspnea and Reports dyspnea on exertion Resp Reports cough, Reports dyspnea and Reports dyspnea on exertion GI Reports hematochezia Musc Reports abnormal gait, Reports muscle weakness, Reports numbness, Reports radiating pain into limb and Reports tingling Neuro Reports abnormal gait, Reports dizziness, Reports frequent falls, Reports numbness, Reports tingling and Reports weakness Endo Reports fatigue and Reports palpitations Physical Exam Vital Signs: Last Vital Signs Pulse 82 04/27/23 10:35 BP 110/70 04/27/23 10:35 BMI result Body Mass Index 19.0 Const General: cooperative, healthy appearing, comfortable and no acute distress Orientation/consciousness: patient oriented x3 Neck Neck: Yes normal visual inspection and Yes no JVD Resp Effort & Inspection: normal respiratory effort Auscultation: clear to auscultation bilaterally, no crackles, no rales, no rhonchi and no wheezes Cardio Jugular venous distension: no JVD Rate: regular rate Rhythm: regular rhythm Heart sounds: S1 normal heart sound present, S2 normal heart sound present, no gallops, no murmurs and no rubs Peripheral pulses: Peripheral pulses 2+ throughout Neuro General: patient oriented x3 Extrem General: Yes normal to inspection Psych Appearance: grossly normal Mental Status: mental status grossly normal Speech and movement: Normal speech and movement present Office Procedures EKG Details: EKG shows normal sinus rhythm with nonspecific ST changes [id number], Complete Assessment & Plan Assessment & Plan (1) Coronary atherosclerosis: Code(s): I25.10 - Atherosclerotic heart disease of [place] coronary artery without angina pectoris Plan: CAD with diffuse atherosclerosis with at least moderate stenosis in the LAD. Currently has symptoms of chest discomfort have resolved on metoprolol therapy. Continue aggressive medical therapy. Continue low-dose aspirin therapy for life. Currently on statin therapy and advised lipid panel near future to assess response. Target goal LDL closer to 60 mg/dL. Further treatment based on the finding of lipid panel. Continue maintain activity as tolerated. Advise to call me with any concerning symptoms with exertion. (2) HTN (hypertension): Code(s): I10 - Essential (primary) hypertension Plan: Prior history of hypertension, currently well optimized on low-dose metoprolol therapy. Advised to monitor blood pressure at home maintain a log. Goal blood pressure less than 130/84. Will follow up in the clinic in 1 year's time, sooner p.r.n.. Thank you for allowing me to partake in her care Coding Level of Care Code Est Pt Level 4 (14174) Diagnoses Coronary atherosclerosis I25.10 HTN (hypertension) I10 CPT Codes EKG - CPT: 58316-[id number], Complete ([id number])
== END 2023-04-27 11:18 | disposition home or self-care (01) ==
PROVIDERS: PCP Internal Medicine; Visit Provider Internal Medicine Cardiovascular Disease
DX: I25.10 Atherosclerotic heart disease of native coronary artery without angina pectoris (principal); I10 Essential (primary) hypertension
CPT/HCPCS: 93010; 99214

== ENCOUNTER → 2023-04-27 10:32 | Outpatient (BNVA) | payer OTHER, SELFPAY | PROVIDERS: PCP Internal Medicine; Visit Provider Internal Medicine Cardiovascular Disease | DX: I25.10 Atherosclerotic heart disease of native coronary artery without angina pectoris (principal); I10 Essential (primary) hypertension | CPT/HCPCS: 93005 ==

== ENCOUNTER 2023-05-03 11:22 | Outpatient (REF) | payer OTHER, SELFPAY ==
[2023-05-03 12:33] LABS: Alanine Aminotransferase 27 U/L (0-31); Albumin Level 4.2 g/dL (3.5-5.0); Alkaline Phosphatase 76 U/L (39-117); Aspartate Amino Transferase 29 U/L (5-31); Bilirubin Direct 0.2 mg/dL (0.0-0.5); Bilirubin Total 0.6 mg/dL (0.0-1.0); Cholesterol 108 mg/dL (<200); HDL Cholesterol 40 mg/dL (>40); LDL Cholesterol Calculated 57 mg/dL (<100); Total Protein 7.4 g/dL (6.5-8.0); Triglycerides 59 mg/dL (<150)
== END 2023-05-03 11:23 | disposition home or self-care (01) ==
LOC: HO.LAB 11:22
PROVIDERS: PCP Internal Medicine; Visit Provider Internal Medicine Cardiovascular Disease
DX: I25.10 Atherosclerotic heart disease of native coronary artery without angina pectoris (principal); I10 Essential (primary) hypertension
CPT/HCPCS: 36415; 80061; 80076

== ENCOUNTER 2023-05-20 09:54 | Outpatient (REF) | payer OTHER, SELFPAY ==
--- NOTE | ~2023-05-20 | XR_ITS ---
EXAMINATION: XR CHEST CLINICAL INFORMATION: Acute bronchitis. COMPARISON: None available. TECHNIQUE: 2 views of the chest were obtained. FINDINGS: The lungs are hyperinflated with emphysematous changes. Cardiac silhouette is enlarged with prominence of the bilateral raymond. No pleural effusion. Degenerative changes in the thoracic spine. Right infrahilar streaky opacities. XR/XR chest 2V IMPRESSION: 1. Enlarged cardiac silhouette with prominence of the bilateral raymond. 2. Right infrahilar streaky opacities may represent atelectasis, bronchiectasis, and/or pneumonia. Correlation with clinical exam recommended to determine further management. Direct correlation with prior images is recommended and if prior images are provided, an addendum will be dictated. In the absence of prior images, CT scan with intravenous contrast considered for further evaluation. This study was presented today May 2023 at 9:45 AM for interpretation. PSA staff will provide results to referring provider at this time.
== END 2023-05-20 09:55 | disposition home or self-care (01) ==
LOC: HO.XRAY 09:54
PROVIDERS: PCP Internal Medicine; Visit Provider Nurse Practitioner Family
DX: J20.9 Acute bronchitis, unspecified (principal)
CPT/HCPCS: 71046

== ENCOUNTER 2023-05-30 12:38 | Outpatient (REF) | payer OTHER, SELFPAY ==
--- NOTE | ~2023-05-30 | XR_ITS ---
EXAMINATION: XR CHEST 2 VIEW CLINICAL INFORMATION: Abnormal findings on diagnostic imaging COMPARISON: 05/20/2023 TECHNIQUE: PA and lateral views of the chest obtained. FINDINGS: The lungs are clear. There are no pleural effusions. The cardiomediastinal silhouette is normal. XR/XR chest 2V IMPRESSION: No acute cardiopulmonary disease.
== END 2023-05-30 12:39 | disposition home or self-care (01) ==
LOC: HO.XRAY 12:38
PROVIDERS: PCP Internal Medicine; Visit Provider Internal Medicine
DX: R93.89 Abnormal findings on diagnostic imaging of other specified body structures (principal)
CPT/HCPCS: 71046

== ENCOUNTER 2023-07-27 10:04 | Outpatient (AMB) | payer MEDICARE, OTHER, SELFPAY ==
--- NOTE | 2023-07-27 10:05 | MHC.PC.OV ---
Intake Visit Reasons: SAWV Allergies No Known Allergies Allergy (Verified 01/12/23 11:04) Tobacco use date assessed: 01/12/23 PFSH Medical History Skin lesion Hypovitaminosis D Allergic rhinitis Age related osteoporosis HTN (hypertension) Hyperlipemia Post-menopausal bleeding Surgical History H/O colonoscopy History of wisdom tooth extraction Family History Father CVD (cardiovascular disease) Stroke Staph infection Mother Hypertension CVD (cardiovascular disease) Non-alcoholic cirrhosis Brother Healthy adult Social History Housing: House Alcohol intake: never Patient Tobacco Use Status: Never used Tobacco e-Cigarette/Vaping Use: Never Used Second Hand Smoke Exposure: No service: No Current occupational status: employed Current occupational exposures/hazards: No Gender identity: Female Cognitive needs: No Hearing needs: No Vision needs: Yes Female Reproductive History Menstrual Age of Menarche: 10 Questionnaire Thrive Questionnaire Date Thrive assessed: 07/15/22 JAZMINE-7 AMB Questionnaire JAZMINE-7 Date JAZMINE - 7 assessed: 01/12/23 Source: Developed by Drs. Maurice Abernathy, Carmen Golden, Trung Betancourt and colleagues, with an educational glenroy from [employer]. Physical exam (Primary Care) Tobacco/Smoking Status: Tobacco use Status Tobacco use date assessed 01/12/23 01/12/23 10:53 Patient Tobacco Use Status Never used Tobacco 01/12/23 10:53 e-Cigarette/Vaping Use Never Used 01/12/23 10:53 Thrive Assessment: Date of Thrive Assessment Date Thrive assessed 07/15/22 01/12/23 10:53 Coding
--- NOTE | 2023-07-27 10:05 | AM.OFFVISMDC ---
Intake Vital Signs 07/27/23 10:17 Height 5 ft Weight 99 lb 8 oz BMI 19.4 BP 112/70 Blood Pressure Location Lt brachial Position Sitting Intake Visit Reasons: [facility] Intake Note: Patient here for a subsequent annual wellness visit Technology Consultant Required: No Accompanied by: Self / Same As Patient Allergies No Known Allergies Allergy (Verified 07/27/23 10:36) Medication List - Last Reconciled 07/27/23 by Lisa Thomas MD alendronate 70 mg PO QWEEK aspirin 81 mg PO DAILY atorvastatin 20 mg PO BEDTIME calcium carbonate 600 mg PO BID 90 days cholecalciferol (vitamin D3) 50 mcg PO DAILY 90 days loratadine (Allergy Relief (loratadine)) 10 mg PO DAILY PRN magnesium 200 mg PO DAILY metoprolol succinate ER 25 mg PO DAILY HPI HPI Comments History of Present Illness Details This is a 72-year-old female that comes for her Medicare wellness exam. PPIs was handed to patient. Still does not have healthcare proxy but MOLTS was given to patient. Mammogram done 2022. Pap smear done 2021. Colonoscopy done 2018 and was normal. She denies any chest pain or shortness of breath. Has osteoporosis diagnosed last year and restarted alendronate which she said she took it in the past. She was thinking about an endocrinology referral for osteoporosis and she will let me know if she wants it. [facility] Medical History (Updated 07/27/23 @ 12:21 by Lisa Thomas MD) Skin lesion Hypovitaminosis D Allergic rhinitis Age related osteoporosis HTN (hypertension) Hyperlipemia Post-menopausal bleeding Surgical History H/O colonoscopy History of wisdom tooth extraction Family History Father CVD (cardiovascular disease) Stroke Staph infection Mother Hypertension CVD (cardiovascular disease) Non-alcoholic cirrhosis Brother Healthy adult Social History Housing: House Alcohol intake: never Patient Tobacco Use Status: Never used Tobacco e-Cigarette/Vaping Use: Never Used Second Hand Smoke Exposure: No service: No Current occupational status: employed Current occupational exposures/hazards: No Gender identity: Female Cognitive needs: No Hearing needs: No Vision needs: Yes Female Reproductive History Menstrual Age of Menarche: 10 Questionnaire Medicare Wellness Checkup [age] What gender do you identify with?: female During the past 4 weeks, how much have you been bothered by emotional problems such as feeling anxious, depressed, irritable, sad or downhearted, and blue?: slightly During the past 4 weeks, has your physical & emotional health limited your social activities with family, friends, neighbors, or groups?: not at all During the past 4 weeks, how much bodily pain have you generally had?: very mild pain During the past 4 weeks, was someone available to help you if you needed & wanted help?: yes, quite a bit During the past 4 weeks, what was the hardest physical activity you could do for at least 2 minutes?: heavy Can you get to places out of walking distance without help? (For eg., can you travel alone on buses, taxis or drive your car?): Yes Can you go shopping for groceries or clothes without someone's help?: Yes Can you prepare your own meals?: Yes Can you do your housework without help?: Yes Because of any health problems, do you need the help of another person with your personal care needs such as eating, bathing, dressing or getting around the house?: No Can you handle your own money without help?: Yes During the past 4 weeks, how would you rate your health in general?: very good During the past 4 weeks how have things been going for you?: pretty well Are you having difficulties driving your car?: no Do you always fasten your seat belt when you are in a car?: yes, usually During past 4 weeks, have you been bothered by the following: never: Falling or dizzy when standing up, Sexual problems?, Trouble eating well?, Teeth or denture problems? and Problems using the telephone? and seldom: Tiredness or fatigue? Have you fallen 2 or more times in the past year?: No Are you afraid of falling?: No Are you a smoker?: no During the past 4 weeks, how many drinks of wine, beer, or other alcoholic beverages did you have?: no alcohol at all Do you exercise for about 20 minutes 3 or more times a week?: yes, some of the time Have you been given information to help with the following?: no: Hazards in your house that might hurt you? and no: Keeping track of your medications? How often do you have trouble taking medicines the way you have been told to take them?: I always take medicine as prescribed How confident are you that you can control & manage most of your health problems?: somewhat confident What is your race?: White Mini Mental State Exam (MMSE) Orientation What is the (year) (season) (date) (day) (month)?: year, season, date, day and month Where are we (state) (county) (town or city) (hospital) (floor)?: state, county, town or city, hospital/clinic and floor Registration Name of 3 unrelated objects clearly and slowly, then ask patient to repeat all 3 of them. (1st repeat determines score. Make sure they can repeat all three): object 1, object 2 and object 3 Attention & Calculation (CHOOSE ONE) Spell WORLD backwards (DLROW): 5 letters Recall Ask patient to repeat the 3 items from question #3.: object 1, object 2 and object 3 Language Show patient a wristwatch & ask what it is. Repeat for pencil.: watch and pencil Ask the patient to repeat the phrase 'No ifs, ands, or buts' after you.: correct Ask the patient to 'take a piece of paper with their right hand' 'fold paper in half' 'place paper on floor': take paper in right hand, fold paper in half and place paper on floor Print the sentence 'CLOSE YOUR EYES' on a piece. If patient actually closes eyes then score.: followed written direction Give patient a blank piece of paper & ask to write a sentence. Score if it contains a noun & verb.: sentence contains subject and verb Ask patient to copy figure of intersecting pentagons exactly. Score if all 10 angles & 2 intersects are included.: all 10 angles present & 2 are intersected Score Score: 30 Activity of Daily Living Bathing - sponge bath, tub bath or shower: receives no assistance (gets in/out by self, if usual bathing means Dressing - getting clothes from closets & drawers, including inner/outer garments & fasteners.: gets clothes & gets completely dressed without help Toileting - going to the 'toilet room' for urine/bowel elimination & cleaning self/arranging clothes: goes to toilet room, cleans self, arranges clothes without help Transfer: moves in & out of bed and chair without help (may use support object) Continence: has occasional 'accidents' Feeding: feeds self without help Total Score: 0 Information obtained from: patient Using telephone: independent Traveling: independent Shopping: independent Preparing meals: independent Housework: independent Taking medicine: independent Managing money: independent PHQ-9 Over the last 2 weeks, how often have you been bothered by any of the following problems? 1. Little interest or pleasure in doing things: not at all 2. Feeling down, depressed, or hopeless: several days 3. Trouble falling or staying asleep, or sleeping too much: not at all 4. Feeling tired or having little energy: several days 5. Poor appetite or overeating: not at all 6. Feeling bad about yourself - or that you are a failure or have let yourself or your family down: not at all 7. Trouble concentrating on things, such as reading the newspaper or watching television: not at all 8. Moving or speaking so slowly that other people could have noticed. Or the opposite - being so fidgety or restless that you have been moving around a lot more than usual: not at all 9. Thoughts that you would be better off or of hurting yourself in some way: not at all Total score: 2 Depression Screening Interpretation: Negative Depression Screening Done: Yes 34493 - PHQ-9 Billing: Yes Source: Developed by Drs. Maurice Abernathy, Carmen Golden, Trung Betancourt and colleagues, with an educational glenroy from [employer]. AUDIT C Alcohol Use Questionnaire (AUDIT-C) 1. How often do you have a drink containing alcohol?: Never Total Score: 0 Score Reviewed/Action Taken: No Thrive Questionnaire Date Thrive assessed: 07/27/23 I am a: Patient What is your living situation today?: I have a steady place to live Within the past 12 months, did the food you bought not last and you didn't have the money to get more?: Never true Within the past 12 months, did you worry whether your food would run out before you got money to buy more?: Never true Do you have trouble paying for medicines?: No Do you have trouble getting transportation to medical appointments?: No Do you have trouble paying your heating and electricity bill?: No Do you have trouble taking care of your child, family member or friend?: No Do you have trouble with day-to-day activities such as bathing, preparing meals, shopping, managing finances, etc.?: No Are you currently unemployed and looking for a job?: No Are you interested in more education?: No Please select the resources that you would like help with: None Currently or been in a relationship where the following occur: no concerns reported THRIVE Score: 0 Fall Risk Assessment Fall Risk Assessment Fall risk assessment: No Falls in past year JAZMINE-7 AMB Questionnaire JAZMINE-7 Date JAZMINE - 7 assessed: 07/27/23 Feeling nervous, anxious, or on edge: 0 = Not at all Not being able to stop or control worryin = Not at all Worrying too much about different things: 0 = Not at all Trouble relaxin = Not at all Being so restless that it is hard to sit still: 0 = Not at all Becoming easily annoyed or irritable: 0 = Not at all Feeling afraid as if something awful might happen: 0 = Not at all Total JAZMINE-7 score (0-4 normal; 5-9 mild; 10-14 moderate; 15-21 severe): 0 Source: Developed by Drs. Maurice Abernathy, Carmen Golden, Trung Betancourt and colleagues, with an educational glenroy from [employer]. JAZMINE-7 Assessment Billing JAZMINE-7 Assessment Tool: JAZMINE-7 Assessment 37096 Review of Systems Const All systems reviewed & are unremarkable except as noted in HPI and below Eyes Reports no additional complaints, Denies change in vision and Denies other visual disturbances Card Denies chest pain at rest, Denies chest pain with activity, Denies edema, Denies irregular heart rhythm, Denies claudication, Denies dyspnea, Denies dyspnea on exertion, Denies orthopnea, Denies paroxysmal nocturnal dyspnea and Denies slow heart rate Resp Denies cough, Denies dyspnea and Denies dyspnea on exertion GI Denies abdominal pain, Denies change in bowel habits, Denies excessive flatus, Denies nausea and Denies vomiting Denies urinary incontinence, Denies urinary hesitancy and Denies urinary urgency Musc Denies abnormal gait, Denies atrophy, Denies deformity and Denies limited range of motion Skin/Breast Denies bleeding lesions, Denies changing lesions and Denies rash Neuro Denies abnormal gait, Denies behavioral changes, Denies confusion and Denies lack of coordination Psych Denies behavioral changes and Denies confusion Physical Exam Vital Signs: Last Vital Signs BP 112/70 07/27/23 10:17 BMI result Body Mass Index 19.4 Const General: No confusion Orientation/consciousness: No confusion Resp Auscultation: clear to auscultation bilaterally Cardio Heart sounds: S1 normal heart sound present and S2 normal heart sound present Neuro General: No confusion Cognition (Neuro): normal cognition Gait exam (Neuro): Normal gait present Romberg Test: Negative Assessment & Plan Assessment & Plan (1) Encounter for Medicare annual wellness exam: Code(s): Z00.00 - Encounter for general adult medical examination without abnormal findings Plan: Repeat in a year. Quality Reporting (2019) Fall Risk Screening ([facility] 139) Fall risk assessment: No Falls in past year Depression/Bipolar (159/160/161/177) PHQ-9: Total score: 2 Coding Level of Care Code Medicare First (G0438) Diagnoses Encounter for Medicare annual wellness exam Z00.00 Additional Codes JAZMINE-7 Assessment Billing - JAZMINE-7 Assessment Tool: JAZMINE-7 Assessment 27289 ([id number]) Time Spent (min) 34
[2023-07-27 10:17] VITALS: BP 112/70; BMI 19.4
== END 2023-07-27 11:02 | disposition home or self-care (01) ==
PROVIDERS: PCP Internal Medicine; Visit Provider Internal Medicine
DX: Z00.00 Encounter for general adult medical examination without abnormal findings (principal)
CPT/HCPCS: G0438

== ENCOUNTER 2023-09-01 13:15 | Outpatient (AMB) | payer MEDICARE, OTHER, SELFPAY ==
--- NOTE | 2023-09-01 13:19 | MHC.OFFVIS ---
Vital Signs 09/01/23 13:31 Height 5 ft Weight 99 lb 10.383 oz BMI 19.5 BP 110/72 Blood Pressure Location Rt brachial Position Sitting Pulse 68 Pulse Source Palpation Intake Visit Reasons: ostoporosis Intake Note: Patient last seen 10/25/[address] Campbell, presents today for follow up. Reports new onset of left sided posterior head discomfort. Has questions on possible side effects with alendronate. 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 Kaur 73-year-old female presents for follow-up of osteoporosis. She has been treated with 70 mg weekly alendronate which was restart restarted the alendronate earlier 2022. She denies possible side effects. She denies hospitalization and since last visit. Patient denies deep dental work, falls, injury or fractures since last visit; tries to get more exercise, weather makes it a challenge. Takes calcium, vitamin and magnesium. Right Thigh pain has resolved since last visit. She is stable on her feet and and cautious. Denies trip hazards in home such as rugs. October 2022 Dr. Campbell: The patient presents with some right thigh discomfort. She is being treated for osteoporosis with 70 mg weekly alendronate. She had been on such therapy for a number of years in the past and then it was held for a few years. I restarted the alendronate earlier this year. She does not seem to have any other possible side effects. She describes the discomfort most the time as fatigue when she bears weight on the leg. Occasionally it is a bit more uncomfortable. There is no similar pain or discomfort on the left but she does note she is putting more weight on the left leg. There is no numbness in the legs or thighs and the thigh discomfort is not present when she is not bearing weight. [facility] Medical History (Updated 09/28/23 @ 06:06 by OWEN Hitchcock) Long-term current use of bisphosphonate Skin lesion Hypovitaminosis D Allergic rhinitis Age related osteoporosis HTN (hypertension) Hyperlipemia Post-menopausal bleeding Surgical History H/O colonoscopy History of wisdom tooth extraction Family History Father CVD (cardiovascular disease) Stroke Staph infection Mother Hypertension CVD (cardiovascular disease) Non-alcoholic cirrhosis Brother Healthy adult Social History Housing: House Alcohol intake: never Patient Tobacco Use Status: Never used Tobacco e-Cigarette/Vaping Use: Never Used Second Hand Smoke Exposure: No service: No Current occupational status: employed Current occupational exposures/hazards: No Gender identity: Female Cognitive needs: No Hearing needs: No Vision needs: Yes Female Reproductive History Menstrual Age of Menarche: 10 Review of Systems Const All systems reviewed & are unremarkable except as noted in HPI and below Physical Exam Vital Signs: Last Vital Signs Pulse 68 09/01/23 13:31 BP 110/72 09/01/23 13:31 BMI result Body Mass Index 19.5 Vital signs reviewed. Constitutional: Non-toxic appearing. No acute distress. Well-developed and well-nourished. HEENT: Normocephalic and atraumatic. External auditory canals without erythema or edema bilaterally. Dry mucous membranes. No pharyngeal erythema or exudates. Skin: Warm and dry. No rashes or lesions noted. Neck: Full and painless range of motion. No cervical lymphadenopathy. Cardio: Regular rate and rhythm. No murmurs, gallops, or rubs. No lower extremity edema. No JVD. Pulmonary: No respiratory distress. No accessory muscle usage. Gastrointestinal: Soft, nontender, and nondistended in all 4 quadrants. Normoactive bowel sounds in all 4 quadrants. Genitourinary: No CVA tenderness. Musculoskeletal: Normal range of motion in joints throughout the body. No deformity or other signs of injury. Neuro: Alert and oriented x4. Cranial nerves 2-12 grossly intact. No focal deficits appreciated. Results Reviewed Results Reviewed: [facility] [address] [place] [address] Mammography Report Signed Patient: Lula Kaur MR#: [id number] : 1950 Acct:[id number] Age/Sex: 70 / F ADM Date: 12/11/20 Ordering Physician: Lisa Quesada MD Results: Date of Service: 12/11/20 Follow Up: Procedure(s): XR DEXA axial skeleton Accession Number(s): [id number] cc: Lisa Quesada MD~ EXAMINATION: BONE DENSITOMETRY CLINICAL INDICATION: Osteoporosis. COMPARISON: Previous BD dated 04/20/2018 and baseline BD dated 10/17/2006. TECHNIQUE: Using a [employer] DXA System (software version: 13.1) manufactured by [employer]), dual-energy x-ray absorptiometry was performed of the lumbar spine and left hip. The images are of good technical quality. Summary results are attached. FINDINGS: AP SPINE L1-L4: Current: BMD 0.739 g/cm2, Z-score -1.4, T-score -3.7, osteoporosis, 4.2% decrease from previous, 14.5% decrease from baseline (<5% change is not significant). Prior: BMD 0.771 g/cm2. Baseline: BMD 0.864 g/cm2. LEFT FEMUR, NECK: Current: BMD 0.687 g/cm2, Z-score -0.3, T-score -2.5, osteoporosis. Prior: BMD 0.724 g/cm2. Baseline: BMD 0.817 g/cm2. LEFT FEMUR, TOTAL: Current: BMD 0.677 g/cm2, Z-score -0.6, T-score -2.6, osteoporosis, 4.1% decrease from previous, 19.8% decrease from baseline (<5% change is not significant). Prior: BMD 0.706 g/cm2. Baseline: BMD 0.844 g/cm2. IDENTIFIED RISK FACTORS: Menopause, osteoporosis. HISTORY OF FRACTURE: None listed. MEDICATIONS: Calcium, vitamin D. MM/XR DEXA axial skeleton IMPRESSION: 1. DIAGNOSIS: Osteoporosis based on the lowest T-score value of -3.7 in the lumbar spine applying World Health Organization criteria.? ? 2. 10-YEAR FRACTURE RISK PREDICTION, FRAX: Major osteoporotic fracture (clinical spine, forearm, hip or shoulder) 14.2%. Hip fracture 4.3%. ? 3. Treatment Recommendations: NOF guidelines recommend consideration for treatment in postmenopausal women and men age 50 and older presenting with the following: -A hip or vertebral (clinical or morphometric) fracture. -T-score less than or equal to -2.5 at the femoral neck or spine after appropriate evaluation to exclude secondary causes. -Low bone mass at the hip or spine and a 10-year fracture probability by FRAX of greater than or equal to 3% for hip fracture or greater than or equal to 20% for major osteoporotic fracture based on the [place] adapted WHO algorithm. 4. Other Recommendations: All treatment decisions require clinical judgment and consideration of individual patient factors, including patient preferences, comorbidities, previous drug use, risk factors not captured in the FRAX model (e.g. frailty, falls, vitamin D deficiency, increased bone turnover, interval significant decline in bone density) and possible under or overestimation of fracture risk by FRAX. Additional medical evaluation for secondary cause of low bone mineral density may be appropriate. ? FUTURE SCAN RECOMMENDATION: People with diagnosed cases of osteoporosis or at high risk for fracture should have regular bone mineral density tests. For patients eligible for Medicare, routine testing is allowed once every 2 years. The testing frequency can be increased to one year for patients who have rapidly progressing disease, those who are receiving or discontinuing medical therapy to restore bone mass, or have additional risk factors. Dictated By: LAURA RICCI MD Laboratory Tests 10/26/20 03/14/22 11:43 12:38 WBC 4.9 Hgb 12.9 25-OH Vitamin D Total 23.[address] [place] [address] Mammography Report Signed Patient: Lula Kaur MR#: [id number] : 1950 Acct:[id number] Age/Sex: 72 / F ADM Date: 12/28/22 Loc: HO.MAMMO Attending Dr: Ap Campbell MD Ordering Physician: Ap Campbell MD Results: Date of Service: 12/28/22 Follow Up: Procedure(s): XR DEXA axial skeleton Accession Number(s): [id number] cc: Ap Campbell MD~ EXAMINATION: BONE DENSITOMETRY CLINICAL INDICATION: Osteoporosis. COMPARISON: Previous BD dated 12/11/2020 and baseline BD dated 10/17/2006. TECHNIQUE: Using a [employer] DXA System (software version: 13.1) manufactured by [employer]), dual-energy x-ray absorptiometry was performed of the lumbar spine and left hip. The images are of good technical quality. Summary results are attached. FINDINGS: LEFT FEMUR, NECK: Current: BMD 0.692 g/cm2, Z-score -0.2, T-score -2.5, osteoporosis. Prior: BMD 0.687 g/cm2. Baseline: BMD 0.817 g/cm2. LEFT FEMUR, TOTAL: Current: BMD 0.679 g/cm2, Z-score -0.5, T-score -2.6, osteoporosis, 0.3% increase from previous, 19.5% decrease from baseline (<5% change is not significant). Prior: BMD 0.677 g/cm2. Baseline: BMD 0.844 g/cm2. AP SPINE L1-L4: Current: BMD 0.724 g/cm2, Z-score -1.4, T-score -3.8, osteoporosis, 2.0% decrease from previous, 16.2% decrease from baseline (<5% change is not significant). Prior: BMD 0.739 g/cm2. Baseline: BMD 0.864 g/cm2. IDENTIFIED RISK FACTORS: Menopause, low body weight, osteoporosis. HISTORY OF FRACTURE: None listed. MEDICATIONS: Calcium, vitamin D, bisphosphonate. MM/XR DEXA axial skeleton IMPRESSION: 1. DIAGNOSIS: Osteoporosis based on the lowest T-score value of -3.8 in the lumbar spine applying World Health Organization criteria. 2. 10-YEAR FRACTURE RISK PREDICTION, FRAX: According to the guidelines, FRAX calculation should only be performed on patients in the osteopenia bone density category. Therefore, FRAX was not performed on this patient. 3. Treatment Recommendations: NOF guidelines recommend consideration for treatment in postmenopausal women and men age 50 and older presenting with the following: -A hip or vertebral (clinical or morphometric) fracture. -T-score less than or equal to -2.5 at the femoral neck or spine after appropriate evaluation to exclude secondary causes. -Low bone mass at the hip or spine and a 10-year fracture probability by FRAX of greater than or equal to 3% for hip fracture or greater than or equal to 20% for major osteoporotic fracture based on the [place] adapted WHO algorithm. 4. Other Recommendations: All treatment decisions require clinical judgment and consideration of individual patient factors, including patient preferences, comorbidities, previous drug use, risk factors not captured in the FRAX model (e.g. frailty, falls, vitamin D deficiency, increased bone turnover, interval significant decline in bone density) and possible under or overestimation of fracture risk by FRAX. Additional medical evaluation for secondary cause of low bone mineral density may be appropriate. FUTURE SCAN RECOMMENDATION: People with diagnosed cases of osteoporosis or at high risk for fracture should have regular bone mineral density tests. For patients eligible for Medicare, routine testing is allowed once every 2 years. The testing frequency can be increased to one year for patients who have rapidly progressing disease, those who are receiving or discontinuing medical therapy to restore bone mass, or have additional risk factors. [place] [id number] Magnetic Resonance Report Signed Patient: Lula Kaur MR#: [id number] : 1950 Acct:[id number] Age/Sex: 72 / F ADM Date: 12/28/22 Loc: HO.MRI Attending Dr: Ap Campbell MD Ordering Physician: Ap Campbell MD Date of Service: 12/28/22 Procedure(s): MR femur RT wo/w con Accession Number(s): [id number] cc: Ap Campbell MD~ EXAMINATION: MR FEMUR WITHOUT AND WITH CONTRAST, RIGHT CLINICAL INFORMATION: Right thigh pain. Weakness. Abnormal finding on prior bone scan. COMPARISON: Bone scan dated 11/01/2022. TECHNIQUE: Multisequence MR imaging of the right femur was obtained before and after the IV administration of 4 mL Gadavist contrast on a high field strength scanner. FINDINGS: BONE: No abnormal marrow signal. No stress reaction, fracture, or avascular necrosis. No concerning lytic or blastic osseous lesion. No postcontrast enhancement. No lesion to correspond with the prior bone scan findings. MUSCLES/TENDONS: Minimally increased T2 signal adjacent to the gluteus minimus tendon, consistent with minimal tendinosis. No measurable muscle or tendon tear. No postcontrast enhancement to suggest acute injury. LIGAMENTS: Intra-articular right knee ligaments not well visualized on large [id number] imaging. SOFT TISSUES: No abnormal soft tissue mass or fluid collection. The visualized intrapelvic structures are grossly unremarkable. MR/MR femur RT wo/w con IMPRESSION: 1. No concerning lytic or blastic osseous lesion to correspond with the prior bone scan findings. 2. Minimal gluteus minimus tendinosis without a measurable tendon tear. 3. No acute osseous abnormality. No stress reaction, fracture, or avascular necrosis. Assessment & Plan Assessment & Plan (1) Age related osteoporosis: Code(s): M81.0 - Age-related osteoporosis without current pathological fracture Category: Medical Qualifiers: Presence of current pathological fracture: without current pathological fracture Qualified Code(s): M81.0 - Age-related osteoporosis without current pathological fracture (2) Long-term current use of bisphosphonate: Code(s): Z79.83 - intermediate (current) use of bisphosphonates Category: Medical (3) Right thigh pain: Code(s): M79.651 - Pain in right thigh Category: Medical Plan #Osteoporosis/Long-term use: 12/2022 DEXA with lowest T-score -3.8 and hip FRAX 4%. Continue alendronate 70 mg weekly, calcium 600 mg daily and cholecalciferol 50 mcg daily. The patient does not want to consider alternate treatment for her osteoporosis at this time- gave her some information to consider for Prolia. Last available labs July 2022; she is due for updated labs so I will obtain those at this time. #Right thigh pain/gluteal tendinitis: Per patient this has resolved since last visit. This pain was located in the proximal to mid thigh and raise the question of an atypical femur fracture given her use of long-term bisphosphonate/alendronate. However, December 2022 MRI was negative for femur fracture and bone pathology but showed some gluteal tendonitis. Follow-up in 6 months 40 minutes spent reviewing chart, evaluating patient and documenting Orders: Orders Calcium 09/01/23 E55.9 - Vitamin D deficiency, unspecified, M81.0 - Age-related osteoporosis without current pathological fracture Thyroid Stimulating Hormone 09/01/23 E55.9 - Vitamin D deficiency, unspecified, M81.0 - Age-related osteoporosis without current pathological fracture Basic Metabolic Panel 09/01/23 E55.9 - Vitamin D deficiency, unspecified, M81.0 - Age-related osteoporosis without current pathological fracture Comprehensive Met. Panel 09/01/23 E55.9 - Vitamin D deficiency, unspecified, M81.0 - Age-related osteoporosis without current pathological fracture Creatinine 09/01/23 E55.9 - Vitamin D deficiency, unspecified, M81.0 - Age-related osteoporosis without current pathological fracture Alkaline Phosphatase Bone 09/01/23 E55.9 - Vitamin D deficiency, unspecified, M81.0 - Age-related osteoporosis without current pathological fracture Vitamin D 25-OH Total 09/01/23 E55.9 - Vitamin D deficiency, unspecified, M81.0 - Age-related osteoporosis without current pathological fracture Vitamin D 1,25 dihydroxy 09/01/23 E55.9 - Vitamin D deficiency, unspecified, M81.0 - Age-related osteoporosis without current pathological fracture Phosphorus 09/01/23 E55.9 - Vitamin D deficiency, unspecified, M81.0 - Age-related osteoporosis without current pathological fracture Collagen Type I C-Telopeptide 09/01/23 E55.9 - Vitamin D deficiency, unspecified, M81.0 - Age-related osteoporosis without current pathological fracture TSH reflex Free T4 09/01/23 E55.9 - Vitamin D deficiency, unspecified, M81.0 - Age-related osteoporosis without current pathological fracture Parathyroid Hormone Intact 09/01/23 E55.9 - Vitamin D deficiency, unspecified, M81.0 - Age-related osteoporosis without current pathological fracture Protein Electrophoresis, Serum 09/01/23 E55.9 - Vitamin D deficiency, unspecified, M81.0 - Age-related osteoporosis without current pathological fracture Complete Blood Count Auto Diff 09/01/23 M81.0 - Age-related osteoporosis without current pathological fracture Coding Level of Care Code Est Pt Level 4 (90350) Complex EM visit Add On G2211 Diagnoses Age-related osteoporosis without current pathological fracture M81.0 Presence of current pathological fracture: without current pathological fracture Long-term current use of bisphosphonate Z79.83 Right thigh pain M79.651 Time Spent (min) 40 Comment This provider seeing patient for the first time
[2023-09-01 13:31] VITALS: BP 110/72; PULSE 68; BMI 19.5
== END 2023-09-01 14:13 | disposition home or self-care (01) ==
LOC: HO.RHE 13:15
PROVIDERS: PCP Internal Medicine; Visit Provider Nurse Practitioner Family
DX: M81.0 Age-related osteoporosis without current pathological fracture (principal); Z79.83 Long term (current) use of bisphosphonates; M79.651 Pain in right thigh
CPT/HCPCS: 99214; G2211

== ENCOUNTER → 2023-09-01 13:15 | Outpatient (BNVA) | payer OTHER, SELFPAY | PROVIDERS: PCP Internal Medicine; Visit Provider Nurse Practitioner Family ==

== ENCOUNTER 2023-11-07 10:09 | Outpatient (REF) | payer MEDICARE, OTHER, SELFPAY ==
[2023-11-07 10:28] LABS: MANUAL DIFF FLAG NO
[2023-11-07 10:42] LABS: Basophils Absolute Auto 0.1 X10*3/uL (0.0-0.2); Basophils Percent Auto 1.1 % (0-2); Eosinophils Absolute Auto 0.1 X10*3/uL (0.0-0.4); Eosinophils Percent Auto 2.8 % (0-4); Hematocrit 38.4 % (37.0-47.0); Hemoglobin 12.8 g/dl (12.0-16.0); Imm Gran Abs Auto 0.01 X10*3/uL (0.00-0.03); Imm Gran Pct Auto 0.2 % (0.0-0.4); Lymphocytes Absolute Auto 1.4 X10*3/uL (1.2-4.9); Lymphocytes Percent Auto 29.2 % (20-40); Mean Corpuscular HGB Conc 33.3 g/dl (31.0-35.0); Mean Corpuscular Hemoglobin 30.5 pg (27.0-33.0); Mean Corpuscular Volume 91.4 fL (80.0-98.0); Mean Platelet Volume 9.9 fL (9.4-12.3); Monocytes Absolute Auto 0.5 X10*3/uL (0.1-1.2); Monocytes Percent Auto 10.4 % (2-11); Neutrophils Absolute Auto 2.7 x10*3/uL (2.0-8.3); Neutrophils Percent Auto 56.3 % (45-73); Platelet Count 162 X10*3/uL (160-400); Red Cell Distribution Width 12.2 % (11.0-16.0); White Blood Count 4.7 X10*3/uL (4.8-10.8)
[2023-11-07 12:02] LABS: Alanine Aminotransferase 18 U/L (0-31); Alkaline Phosphatase 71 U/L (39-117); Anion Gap 10 (12-20); Aspartate Amino Transferase 24 U/L (5-31); Bilirubin Total 0.5 mg/dL (0.0-1.0); Blood Urea Nitrogen 26 mg/dL (9-16); Calcium 9.4 mg/dL (8.4-10.2); Carbon Dioxide 29 mmol/L (22-29); Chloride 106 mmol/L (96-108); Estimated Glomerular Filt Rate > 60; Glucose Random 94 mg/dL (60-115); Phosphorus 3.2 mg/dL (2.7-4.5); Potassium 4.3 mmol/L (3.3-5.1); Sodium 141 mmol/L (135-145)
[2023-11-07 12:04] LABS: TSH reflex Free T4 2.84 uIU/mL (0.32-4.0); Thyroid Stimulating Hormone 2.84 uIU/mL (0.32-4.0); Vitamin D 25-OH Total 33.3 ng/mL (>30)
[2023-11-09 21:03] LABS: Prot Elec - Albumin 3.6 g/dL (3.8-4.8); Prot Elec - Alpha1 0.2 g/dL (0.2-0.3); Prot Elec - Alpha2 0.6 g/dL (0.5-0.9); Prot Elec - Beta 1 0.5 g/dL (0.4-0.6); Prot Elec - Beta 2 0.4 g/dL (0.2-0.5); Prot Elec - Gamma 1.1 g/dL (0.8-1.7); Prot Elec - Total Protein 6.4 g/dL (6.1-8.1)
[2023-11-10 15:49] LABS: VITAMIN D (1,25 OH) D3 33 pg/mL; Vit D (1,25-Dihydroxy) Total 33 pg/mL (18-72); Vitamin D (1,25 OH) D2 <8 pg/mL
[2023-11-11 20:38] LABS: Alkaline Phosphatase Bone 13.7 mcg/L (5.6-29.0)
== END 2023-11-07 10:10 | disposition home or self-care (01) ==
LOC: HO.LAB 10:09
PROVIDERS: PCP Internal Medicine; Referring Provider Internal Medicine; Visit Provider Nurse Practitioner Family
DX: E55.9 Vitamin D deficiency, unspecified (principal); M81.0 Age-related osteoporosis without current pathological fracture
CPT/HCPCS: 36415; 80053; 82306; 82652; 83970; 84075; 84100; 84165; 84443; 85025

== ENCOUNTER 2023-11-08 08:39 | Outpatient (REF) | payer MEDICARE, OTHER, SELFPAY ==
[2023-11-08 10:03] LABS: Anion Gap 11 (12-20); Blood Urea Nitrogen 24 mg/dL (9-16); Carbon Dioxide 29 mmol/L (22-29); Chloride 105 mmol/L (96-108); Estimated Glomerular Filt Rate > 60; Glucose Random 89 mg/dL (60-115); Potassium 4.1 mmol/L (3.3-5.1); Sodium 141 mmol/L (135-145)
[2023-11-12 22:12] LABS: Collagen Type I C-Telopeptide 149 pg/mL (see note)
== END 2023-11-08 08:40 | disposition home or self-care (01) ==
LOC: HO.LAB 08:39
PROVIDERS: PCP Internal Medicine; Visit Provider Nurse Practitioner Family
DX: E55.9 Vitamin D deficiency, unspecified (principal); M81.0 Age-related osteoporosis without current pathological fracture
CPT/HCPCS: 36415; 80048; 82523

== ENCOUNTER 2023-12-27 10:54 | Outpatient (REF) | payer MEDICARE, OTHER, SELFPAY | END 2023-12-27 10:55 | disposition home or self-care (01) | LOC: HO.MAMMO 10:54 | PROVIDERS: PCP Internal Medicine; Visit Provider Internal Medicine | DX: Z12.31 Encounter for screening mammogram for malignant neoplasm of breast (principal) | CPT/HCPCS: 77063; 77067 ==

== ENCOUNTER → 2023-12-27 11:00 | Outpatient (BNV) | payer MEDICARE, OTHER, SELFPAY | PROVIDERS: PCP Internal Medicine; Visit Provider Radiology Diagnostic Radiology | DX: Z12.31 Encounter for screening mammogram for malignant neoplasm of breast (principal) | CPT/HCPCS: 77063; 77067 ==

== ENCOUNTER 2024-02-23 13:42 | Outpatient (AMB) | payer MEDICARE, OTHER, SELFPAY ==
--- NOTE | 2024-02-23 13:43 | A.OFFPC_ITS ---
Intake Visit Reasons: COVID Pos. Evp General Counsel Required: No Accompanied by: Self / Same As Patient Allergies No Known Allergies Allergy (Verified 02/23/24 13:43) Tobacco use date assessed: 02/23/24 Fall risk assessment: No Falls in past year Dental Screening Dental Screen Date: 02/23/24 Did you have a dental visit in the last 12 months?: Yes Did you have a dental problem in the last 6 months where you did not have access to dental care?: No Was dental information given to patient?: Patient has dentist HPI COVID Pos. HPI Details 73-year-old female with a history of ost eoporosis hypertension coronary artery disease hypercholesterolemia calling in for an acute problem.brother came homw with symptoms. chills tiredness, runny nose, sore throat, no sob, no bowel symptoms, PFSH Medical History (Updated 02/23/24 @ 14:28 by Vanessa Hemphill MD) Long-term current use of bisphosphonate Skin lesion Hypovitaminosis D Allergic rhinitis Age related osteoporosis HTN (hypertension) Hyperlipemia Post-menopausal bleeding Surgical History H/O colonoscopy History of wisdom tooth extraction Family History Father CVD (cardiovascular disease) Stroke Staph infection Mother Hypertension CVD (cardiovascular disease) Non-alcoholic cirrhosis Brother Healthy adult Social History Housing: House Alcohol intake: never Patient Tobacco Use Status: Never used Tobacco Tobacco use type: Cigarette e-Cigarette/Vaping Use: Never Used Second Hand Smoke Exposure: No service: No Current occupational status: employed Current occupational exposures/hazards: No Gender identity: Female Cognitive needs: No Hearing needs: No Vision needs: Yes Female Reproductive History Menstrual Age of Menarche: 10 Questionnaire Thrive Questionnaire Date Thrive assessed: 07/27/23 JAZMINE-7 AMB Questionnaire JAZMINE-7 Date JAZMINE - 7 assessed: 07/27/23 Source: Developed by Drs. Maurice Abernathy, Carmen Golden, Trung Betancourt and colleagues, with an educational glenroy from [employer]. Physical exam (Primary Care) Tobacco/Smoking Status: Tobacco use Status Tobacco use date assessed 02/23/24 02/23/24 13:44 Patient Tobacco Use Status Never used Tobacco 02/23/24 13:44 Tobacco use type Cigarette 02/23/24 13:44 e-Cigarette/Vaping Use Never Used 02/23/24 13:44 Thrive Assessment: Date of Thrive Assessment Date Thrive assessed 07/27/23 02/23/24 13:44 Telehealth Telehealth Telehealth Platform: Telephone Location of provider rendering services: practice address Location of patient: address on file Patient Identification confirmed using: Name, : Yes Telehealth method: voice only (Android) Patient verbally consented to treatment: Yes Patient verbally consented to billing insurance company: Yes Patient informed of any privacy concerns related to visit: Yes Minutes spent on Phone/Video with Pt.: 15 Coding Level of Care Code Tele Est Pt Level 3 (74925) Diagnoses COVID-19 virus infection U07.1 Assessment & Plan Assessment & Plan (1) COVID-19 virus infection: Comment: 02/21/2024 Code(s): U07.1 - COVID-19 Category: Medical Plan: Antiviral prescription sent in. For the sore throat can take Cepacol lozenges, discussed about Delsym to help with dry cough so she can rest and advised to increase oral fluids. Patient also can take Tylenol for chills and fever. Medications: New nirmatrelvir-ritonavir 300 mg (150 mg x 2)-100 mg (Paxlovid) take TWO 150 mg tablets of nirmatrelvir with ONE 100 mg tablet of ritonavir twice daily for 5 days PO 30 ea 0RF U07.1 - COVID-19
== END 2024-02-23 14:33 | disposition home or self-care (01) ==
LOC: HO.HMCH 13:42
PROVIDERS: PCP Internal Medicine; Visit Provider Internal Medicine
DX: U07.1 COVID-19 (principal)

== ENCOUNTER → 2024-02-23 13:42 | Outpatient (BNVA) | payer MEDICARE, OTHER, SELFPAY | PROVIDERS: PCP Internal Medicine; Visit Provider Internal Medicine ==

== ENCOUNTER 2024-03-06 10:03 | Outpatient (AMB) | payer MEDICARE, OTHER, SELFPAY ==
--- NOTE | 2024-03-06 10:05 | MHC.OFFVIS ---
Vital Signs 03/06/24 10:07 Height 5 ft Weight 97 lb BMI 18.9 BP 99/70 Blood Pressure Location Lt brachial Position Sitting Pulse 88 Pulse Source Pulse Oximeter Pulse Oximetry (%) 100 Oxygen Delivery Method Room Air Intake Visit Reasons: ostoporosis Intake Note: Patient presents today for follow up on osteoporosis and lab review. She was last seen in the office on 09/01/23 by Radha Queen. Allergies No Known Allergies Allergy (Verified 03/06/24 10:08) Medication List - Last Reconciled 03/06/24 by Latisha Nicholson MD alendronate 70 mg PO QWEEK aspirin 81 mg PO DAILY atorvastatin 20 mg PO BEDTIME calcium carbonate 600 mg PO BID 90 days cholecalciferol (vitamin D3) 50 mcg PO DAILY 90 days loratadine (Allergy Relief (loratadine)) 10 mg PO DAILY PRN magnesium 200 mg PO DAILY metoprolol succinate ER 25 mg PO DAILY nirmatrelvir-ritonavir 300 mg (150 mg x 2)-100 mg (Paxlovid) take TWO 150 mg tablets of nirmatrelvir with ONE 100 mg tablet of ritonavir twice daily for 5 days PO HPI Comments Details: Patient is a 73-year-old female with hyperlipidemia, allergic rhinitis, hypertension, age-related osteoporosis and vitamin-D deficiency who presents for follow-up. Interval History: Patient last seen 09/01/23 with Radha Queen. At that time patient was stable no complaints. Alendronate 70 mg weekly continued Patient has been well since that time. Had 02/23/2024 internal medicine visit for COVID-19 virus infection. Given Paxlovid. Currently doing well from that standpoint. Denies falls, fractures, instability, back pain. Has been tolerating her alendronate weekly. Supplements with vitamin-D, magnesium and calcium. Rheumatologic History: Diagnosed with osteoporosis in 2006. Has been on alendronate since then. Was on a drug holiday but her alendronate was restarted 05/2022 Current Rheumatology Medication(s): Alendronate 70mg weekly Vitamin D Calcium [facility] Medical History (Updated 02/23/24 @ 14:28 by Vanessa Hemphill MD) Long-term current use of bisphosphonate Skin lesion Hypovitaminosis D Allergic rhinitis Age related osteoporosis HTN (hypertension) Hyperlipemia Post-menopausal bleeding Surgical History H/O colonoscopy History of wisdom tooth extraction Family History Father CVD (cardiovascular disease) Stroke Staph infection Mother Hypertension CVD (cardiovascular disease) Non-alcoholic cirrhosis Brother Healthy adult Social History Housing: House Alcohol intake: never Patient Tobacco Use Status: Never used Tobacco Tobacco use type: Cigarette e-Cigarette/Vaping Use: Never Used Second Hand Smoke Exposure: No service: No Current occupational status: employed Current occupational exposures/hazards: No Gender identity: Female Cognitive needs: No Hearing needs: No Vision needs: Yes Female Reproductive History Menstrual Age of Menarche: 10 Review of Systems Const Details: Review of Systems Constitutional: Denies fever, chills, weight loss ENT: Denies vision changes, eye pain or eye redness, dental caries, dry mouth GI: Denies nausea, vomiting, diarrhea, abdominal pain, change in BM Pulm: Denies SOB, OCHOA, hemoptysis, wheezing Cards: Denies chest pain, palpitations Skin: Denies Raynaud's, rash, nail changes, photosensitivity, NET REPAIRER: Denies headaches, weakness, paresthesias, recurrent falls MSK: as per HPI All other systems reviewed and are unremarkable except noted above Physical Exam Vital Signs: Last Vital Signs Pulse 88 03/06/24 10:07 BP 99/70 03/06/24 10:07 Pulse Ox 100 03/06/24 10:07 Oxygen Delivery Method Room Air 03/06/24 10:07 BMI result Body Mass Index 18.9 Const Other: Physical Examination Patient well appearing and in no apparent painful distress Able to rise from chair without support. ?Gait normal. Constitutional Mucous membranes pink and moist patient alert and cooperative HEENT Conjunctiva and sclera clear. ?Pupils equal round and reactive to light. ?No lymphadenopathy. ?Normal dentition. Respiratory System Normal respiratory effort and able to speak in complete sentences. ?Clear to auscultation bilaterally. ?No crackles, rales, rhonchi, wheezes heard. Cardiac System Regular rate and rhythm. ?S1 and S2 heard no murmurs. ?Radial pulses intact bilaterally MSK No deformity, swelling, abnormalities noted to bilateral hands. ?No evidence of synovitis. ?Able to move all joints with full range of motion, without limitation. No pain with palpation of the vertebral spine. Results Reviewed Results Reviewed: Laboratory Tests 11/07/23 11/08/23 10:28 08:56 Sodium 141 141 Potassium 4.3 4.1 Chloride 106 105 Carbon Dioxide 29 29 BUN 26 H 24 H Creatinine 0.71 0.74 Calcium 9.4 D 9.0 25-OH Vitamin D Total 33.3 DEXA 12/28/22 FINDINGS: LEFT FEMUR, NECK: Current: BMD 0.692 g/cm2, Z-score -0.2, T-score -2.5, osteoporosis. Prior: BMD 0.687 g/cm2. Baseline: BMD 0.817 g/cm2. LEFT FEMUR, TOTAL: Current: BMD 0.679 g/cm2, Z-score -0.5, T-score -2.6, osteoporosis, 0.3% increase from previous, 19.5% decrease from baseline (<5% change is not significant). Prior: BMD 0.677 g/cm2. Baseline: BMD 0.844 g/cm2. AP SPINE L1-L4: Current: BMD 0.724 g/cm2, Z-score -1.4, T-score -3.8, osteoporosis, 2.0% decrease from previous, 16.2% decrease from baseline (<5% change is not significant). Prior: BMD 0.739 g/cm2. Baseline: BMD 0.864 g/cm2. Assessment & Plan Assessment & Plan (1) Age related osteoporosis: Code(s): M81.0 - Age-related osteoporosis without current pathological fracture Category: Medical Qualifiers: Presence of current pathological fracture: without current pathological fracture Qualified Code(s): M81.0 - Age-related osteoporosis without current pathological fracture Plan: #Osteoporosis Patient with osteoporosis on alendronate. No falls or fractures since the last visit. Had a long discussion with the patient about her bone density and the risks associated with osteoporosis particularly vertebral fractures and potential spinal cord injury. She would like to try increasing weight bearing exercises before considering alternate treatment Gave a pamphlet with various back muscle exercises. Told her to get small weights to add resistance and stress the muscle which will in turn stress the bone and encourage remodeling She is to continue Vitamin D and Calcium supplementation. Encouraged dietary calcium including milk, cheese and yogurt. Will see again in 6 months. At that time will repeat DEXA and consider starting the injection. (2) Long-term current use of bisphosphonate: Code(s): Z79.83 - long term care administrator (current) use of bisphosphonates Category: Medical Plan: #Long-term Use of Bisphosphonates Risks and benefits of bisphosphonates in the management of osteoporosis Benefits include improved bone density, decreased fracture risk Risks include atypical femoral fractures, GI upset, esophageal strictures Contraindicated in patients with a creatinine clearance < 30 to 35 ml/min Keep vitamin-D at least 35 ng/mL Plan I spent 30 minutes reviewing the record and labs, seeing the patient, discussing the treatment plan and documenting in the medical record Orders: Orders Collagen Type I C-Telopeptide 6 Months E55.9 - Vitamin D deficiency, unspecified, M81.0 - Age-related osteoporosis without current pathological fracture, Z79.83 - long term care administrator (current) use of bisphosphonates Comprehensive Met. Panel 6 Months E55.9 - Vitamin D deficiency, unspecified, M81.0 - Age-related osteoporosis without current pathological fracture, Z79.83 - long term care administrator (current) use of bisphosphonates Vitamin D 25-OH Total 6 Months E55.9 - Vitamin D deficiency, unspecified, M81.0 - Age-related osteoporosis without current pathological fracture, Z79.83 - long term care administrator (current) use of bisphosphonates Coding Level of Care Code Est Pt Level 4 (78018) Diagnoses Age-related osteoporosis without current pathological fracture M81.0 Presence of current pathological fracture: without current pathological fracture Long-term current use of bisphosphonate Z79.83
[2024-03-06 10:07] VITALS: BP 99/70; PULSE 88; O2SAT 100; BMI 18.9
== END 2024-03-06 10:39 | disposition home or self-care (01) ==
PROVIDERS: PCP Internal Medicine; Visit Provider Student in an Organized Health Care Education/Training Program
DX: M81.0 Age-related osteoporosis without current pathological fracture (principal); Z79.83 Long term (current) use of bisphosphonates
CPT/HCPCS: 99214

== ENCOUNTER → 2024-03-06 10:03 | Outpatient (BNVA) | payer MEDICARE, OTHER, SELFPAY | PROVIDERS: PCP Internal Medicine; Visit Provider Student in an Organized Health Care Education/Training Program | DX: M81.0 Age-related osteoporosis without current pathological fracture (principal); Z79.83 Long term (current) use of bisphosphonates | CPT/HCPCS: 99212 ==

== ENCOUNTER 2024-08-01 10:06 | Outpatient (AMB) | payer MEDICARE, OTHER, SELFPAY ==
--- NOTE | 2024-08-01 10:14 | AM.OFFVISMDC ---
Intake Vital Signs 08/01/24 10:15 Height 5 ft Weight 96 lb 6 oz BMI 18.8 BP 118/70 Blood Pressure Location Lt brachial Position Sitting Intake Visit Reasons: SWV G0439 Pattern Cleaner Required: No Accompanied by: Self / Same As Patient Allergies No Known Allergies Allergy (Verified 08/01/24 10:31) Medication List - Last Reconciled 08/01/24 by Lisa Thomas MD alendronate 70 mg PO QWEEK aspirin 81 mg PO DAILY atorvastatin 20 mg PO BEDTIME calcium carbonate 600 mg PO BID 90 days cholecalciferol (vitamin D3) 50 mcg PO DAILY 90 days loratadine (Allergy Relief (loratadine)) 10 mg PO DAILY PRN magnesium 200 mg PO DAILY metoprolol succinate ER 25 mg PO DAILY nirmatrelvir-ritonavir 300 mg (150 mg x 2)-100 mg (Paxlovid) take TWO 150 mg tablets of nirmatrelvir with ONE 100 mg tablet of ritonavir twice daily for 5 days PO HPI HPI Comments History of Present Illness Details The patient is a 73-year-old female presenting for an annual wellness examination. Her past medical history includes osteoporosis, hypertension, hyperlipidemia, and a recent history of COVID-19, which led to a period of post-viral fatigue that has since resolved. She has also undergone cataract surgery in 2018, corresponding with her last colonoscopy. She has osteoporosis, confirmed by a bone densitometry test conducted in December 2022, and she follows up for this condition with a day guard, currently Dr. Nicholson, whom she will see again in August. She is managing her osteoporosis with a medication regimen that includes alendronate taken weekly, a treatment she acknowledges. A repeat bone densitometry is suggested to occur every two years. Her medical history includes hyperlipidemia and she is on atorvastatin 20 mg for cholesterol management. The patient recalls her last blood work, including cholesterol levels, was conducted in April [address] Paniagua, her finishing room operator, who also handles her hypertension treatment with metoprolol and prescribes aspirin 81 mg. She was deemed to have controlled blood pressure during the visit. As for her past medical care, her post-operative recovery from cataract surgery, which occurred concurrently with her last colonoscopy in 2018, was unremarkable, with the colonoscopy yielding normal results. She also has a history of COVID-19 infection in February 2023, followed by a post-viral syndrome with fatigue that has since resolved. Her vaccination records confirm she received a tetanus-diphtheria vaccine in 2019 and a pneumonia vaccine after turning 63. - Bone densitometry conducted in December 2022 confirmed osteoporosis; repeat every two years. - Up to date on vaccinations: Tetanus-diphtheria vaccine in 2019, pneumonia vaccine after age 65. - Consideration for RSV vaccine and Shingrix vaccine in summer 2024. - PPP handed to patient. [place] of care reviewed. [facility] Medical History Long-term current use of bisphosphonate Skin lesion Hypovitaminosis D Allergic rhinitis Age related osteoporosis HTN (hypertension) Hyperlipemia Post-menopausal bleeding Surgical History H/O colonoscopy History of wisdom tooth extraction Family History Father CVD (cardiovascular disease) Stroke Staph infection Mother Hypertension CVD (cardiovascular disease) Non-alcoholic cirrhosis Brother Healthy adult Social History Housing: House Alcohol intake: never Patient Tobacco Use Status: Never used Tobacco Tobacco use type: Cigarette e-Cigarette/Vaping Use: Never Used Second Hand Smoke Exposure: No service: No Current occupational status: employed Current occupational exposures/hazards: No Gender identity: Female Cognitive needs: No Hearing needs: No Vision needs: Yes Female Reproductive History Menstrual Age of Menarche: 10 Questionnaire Medicare Wellness Checkup What [age] What gender do you identify with?: female During the past 4 weeks, how much have you been bothered by emotional problems such as feeling anxious, depressed, irritable, sad or downhearted, and blue?: slightly During the past 4 weeks, has your physical & emotional health limited your social activities with family, friends, neighbors, or groups?: not at all During the past 4 weeks, how much bodily pain have you generally had?: very mild pain During the past 4 weeks, was someone available to help you if you needed & wanted help?: yes, as much as I wanted During the past 4 weeks, what was the hardest physical activity you could do for at least 2 minutes?: moderate Can you get to places out of walking distance without help? (For eg., can you travel alone on buses, taxis or drive your car?): Yes Can you go shopping for groceries or clothes without someone's help?: Yes Can you prepare your own meals?: Yes Can you do your housework without help?: Yes Because of any health problems, do you need the help of another person with your personal care needs such as eating, bathing, dressing or getting around the house?: No Can you handle your own money without help?: Yes During the past 4 weeks, how would you rate your health in general?: very good During the past 4 weeks how have things been going for you?: pretty well Are you having difficulties driving your car?: no Do you always fasten your seat belt when you are in a car?: yes, usually During past 4 weeks, have you been bothered by the following: never: Falling or dizzy when standing up, Sexual problems?, Trouble eating well?, Teeth or denture problems? and Problems using the telephone? and seldom: Tiredness or fatigue? Have you fallen 2 or more times in the past year?: No Are you afraid of falling?: No Are you a smoker?: no During the past 4 weeks, how many drinks of wine, beer, or other alcoholic beverages did you have?: no alcohol at all Do you exercise for about 20 minutes 3 or more times a week?: yes, some of the time Have you been given information to help with the following?: yes: Hazards in your house that might hurt you? and no: Keeping track of your medications? How often do you have trouble taking medicines the way you have been told to take them?: I always take medicine as prescribed How confident are you that you can control & manage most of your health problems?: somewhat confident What is your race?: White Mini Mental State Exam (MMSE) Orientation What is the (year) (season) (date) (day) (month)?: year, season, date, day and month Where are we (state) (county) (town or city) (hospital) (floor)?: state, county, town or city, hospital/clinic and floor Registration Name of 3 unrelated objects clearly and slowly, then ask patient to repeat all 3 of them. (1st repeat determines score. Make sure they can repeat all three): object 1, object 2 and object 3 Attention & Calculation (CHOOSE ONE) Spell WORLD backwards (DLROW): 5 letters Recall Ask patient to repeat the 3 items from question #3.: object 1, object 2 and object 3 Language Show patient a wristwatch & ask what it is. Repeat for pencil.: watch and pencil Ask the patient to repeat the phrase 'No ifs, ands, or buts' after you.: correct Ask the patient to 'take a piece of paper with their right hand' 'fold paper in half' 'place paper on floor': take paper in right hand, fold paper in half and place paper on floor Print the sentence 'CLOSE YOUR EYES' on a piece. If patient actually closes eyes then score.: followed written direction Give patient a blank piece of paper & ask to write a sentence. Score if it contains a noun & verb.: sentence contains subject and verb Ask patient to copy figure of intersecting pentagons exactly. Score if all 10 angles & 2 intersects are included.: all 10 angles present & 2 are intersected Score Score: 30 Activity of Daily Living Bathing - sponge bath, tub bath or shower: receives no assistance (gets in/out by self, if usual bathing means Dressing - getting clothes from closets & drawers, including inner/outer garments & fasteners.: gets clothes & gets completely dressed without help Toileting - going to the 'toilet room' for urine/bowel elimination & cleaning self/arranging clothes: goes to toilet room, cleans self, arranges clothes without help Transfer: moves in & out of bed and chair without help (may use support object) Feeding: feeds self without help Total Score: 0 Information obtained from: patient Using telephone: independent Traveling: independent Shopping: independent Preparing meals: independent Housework: independent Taking medicine: independent Managing money: independent PHQ-9 Over the last 2 weeks, how often have you been bothered by any of the following problems? 1. Little interest or pleasure in doing things: not at all 2. Feeling down, depressed, or hopeless: not at all 3. Trouble falling or staying asleep, or sleeping too much: not at all 4. Feeling tired or having little energy: not at all 5. Poor appetite or overeating: not at all 6. Feeling bad about yourself - or that you are a failure or have let yourself or your family down: not at all 7. Trouble concentrating on things, such as reading the newspaper or watching television: not at all 8. Moving or speaking so slowly that other people could have noticed. Or the opposite - being so fidgety or restless that you have been moving around a lot more than usual: not at all 9. Thoughts that you would be better off or of hurting yourself in some way: not at all Total score: 0 Depression Screening Interpretation: Negative Depression Screening Done: Yes 47970 - PHQ-9 Billing: Yes Source: Developed by Drs. Maurice Abernathy, Trung Tolbert and colleagues, with an educational glenroy from [employer]. Fall Risk Assessment Fall Risk Assessment Fall risk assessment: 1 Fall in past year AUDIT C Alcohol Use Questionnaire (AUDIT-C) 1. How often do you have a drink containing alcohol?: Never Total Score: 0 Score Reviewed/Action Taken: No JAZMINE-7 AMB Questionnaire JAZMINE-7 Date JAZMINE - 7 assessed: 08/01/24 Feeling nervous, anxious, or on edge: 0 = Not at all Not being able to stop or control worryin = Not at all Worrying too much about different things: 0 = Not at all Trouble relaxin = Not at all Being so restless that it is hard to sit still: 0 = Not at all Becoming easily annoyed or irritable: 0 = Not at all Feeling afraid as if something awful might happen: 0 = Not at all Total JAZMINE-7 score (0-4 normal; 5-9 mild; 10-14 moderate; 15-21 severe): 0 Source: Developed by Drs. Maurice Abernathy, Trung Tolbert and colleagues, with an educational glenroy from [employer]. JAZMINE-7 Assessment Billing AJZMINE-7 Assessment Tool: JAZMINE-7 Assessment 62175 Thrive Questionnaire Date Thrive assessed: 07/27/23 Review of Systems Const All systems reviewed & are unremarkable except as noted in HPI and below Card Denies chest pain at rest, Denies chest pain with activity, Denies edema, Denies irregular heart rhythm, Denies claudication, Denies dyspnea, Denies dyspnea on exertion, Denies orthopnea, Denies paroxysmal nocturnal dyspnea and Denies slow heart rate Resp Denies cough, Denies dyspnea and Denies dyspnea on exertion GI Denies abdominal pain, Denies change in bowel habits, Denies excessive flatus, Denies nausea and Denies vomiting Denies urinary incontinence, Denies urinary hesitancy and Denies urinary urgency Neuro Denies lack of coordination Physical Exam Vital Signs: Last Vital Signs BP 118/70 08/01/24 10:15 BMI result Body Mass Index 18.8 Const Orientation/consciousness: patient oriented x3 Resp Effort & Inspection: normal respiratory effort Auscultation: clear to auscultation bilaterally Cardio Jugular venous distension: no JVD Rate: regular rate Rhythm: regular rhythm Heart sounds: S1 normal heart sound present and S2 normal heart sound present Neuro General: patient oriented x3 and gait normal Romberg Test: Negative Extrem General: Yes full ROM Assessment & Plan Assessment & Plan (1) Encounter for Medicare annual wellness exam: Code(s): Z00.00 - Encounter for general adult medical examination without abnormal findings Plan Repeated bone densitometry is planned for 2024. She is encouraged to consider receiving the RSV and Shingrix vaccines in the summer. The patient manages her own medications and activities of daily living independently. She is currently not experiencing issues with managing tasks or finances, and denies depression but may experience occasional urinary urgency. No additional acute concerns were identified during the visit.: Patient was informed and verbally consented to the use of an ambient scribe for clinic note documentation during this visit. During the patient's annual wellness examination, we discussed her ongoing management for osteoporosis, including the use of alendronate on a weekly basis and follow-up consultations with Dr. Nicholson scheduled for August. I will coordinate necessary laboratory work with Dr. Paniagua, her finishing room operator, upon her upcoming visit and recommend a liver profile be included in her blood work. The patient is up to date on her tetanus-diphtheria and pneumonia vaccines. I discussed the possibility of receiving the RSV vaccine and Shingrix vaccine in the summer of 2024, which she considered positively. I mentioned that the blood pressure is currently well-controlled with the prescribed metoprolol and other cardiovascular risk factors, such as hyperlipidemia, managed with atorvastatin. Her functional status remains satisfactory, despite occasional urinary urgency, and she was advised to continue her current medication regimen, lifestyle, and health maintenance metrics. No acute concerns were identified; she should consult if her symptoms worsen or change significantly. Orders: Orders Comprehensive [place]. Panel Fast Today I10 - Essential (primary) hypertension Lipid Panel Today E78.5 - Hyperlipidemia, unspecified Patient Instructions: - Continue taking alendronate weekly as prescribed by Dr. Nicholson for osteoporosis management. - Maintain scheduled follow-up with the day guard in August to discuss osteoporosis. - Discuss with Dr. Paniagua about scheduling blood work, including checking cholesterol levels and a liver profile. - Consider receiving RSV and Shingrix vaccinations in summer 2024. - Continue current medications for hypertension and hyperlipidemia as prescribed. - Maintain current independent lifestyle and manage occasional urinary urgency as discussed. - Contact me if there are any changes in symptoms or if new concerns arise before scheduled follow-ups. Quality Reporting (2019) Fall Risk Screening ([facility] 139) Fall risk assessment: 1 Fall in past year Depression/Bipolar (159/160/161/177) PHQ-9: Total score: 0 Coding Level of Care Code Medicare Subsequent (G0439) Diagnoses Encounter for Medicare annual wellness exam Z00.00 CPT Codes Advance Care Planning - Time spent: 1-15 minutes, on File ([id number]) Additional Codes JAZMINE-7 Assessment Billing - JAZMINE-7 Assessment Tool: JAZMINE-7 Assessment 52377 ([id number]) PHQ-9 - 30787 - PHQ-9 Billing: Yes ([id number]) Time Spent (min) 35 Advance Care Planning Advance Care Planning discussion: Exists, not on file Date of discussion: 08/01/24 Forms completed: Health Care Proxy Time spent: 1-15 minutes, on File Actual minutes spent: 1
[2024-08-01 10:15] VITALS: BP 118/70; BMI 18.8
--- OUTSIDE RECORDS SUMMARY | 2024-08-01 12:32 | XMS_ITS | Data Portability ---
Author Organization LIVIA osorio [address] Address [address] [place] [address] Care Team Providers Care Electronic Organ Mechanic Name Role Phone [facility] Primary Care Provider Assessment Encounter Date Assessment Date Assessment LastModified by Organization Details LastModified Time 11/01/2023 11/01/2023 You have been diagnosed with an Upper Respiratory Infection. It is important to drink plenty of fluids and rest while you are ill. Hot Tea with Honey is good to help with a sore throat. Some OTC medications that are helpful with your current symptoms would include. 1. Tylenol 2. Rachael Selzer Cold/Flu Effervescent Pills 3. Saline Nasal Sinai Try an avoid other people and wash your hands regularly. Most symptoms will improve on its own in 7-10 days. If symptoms last longer than 10 days then I would suggest getting a re-evaluate by us or your Primary Care Doctor. I would be seen more urgently if you develop any of the following symptoms: 1. Fever > 101.0 2. Increased facial pain or pressure 3. Purulent Discharge from the nose that occurs all day -(not just first thing in the AM) 4. Worsening Sore throat 5. Cough or Shortness of Breath I would go to the ER if you develop: 1. Severe Headache 2. Fever > 102.5 3. Still Neck 4. Shortness of Breath or Chest Pain. [email or web address] Not available 11/01/2023 11:48:26 Plan of Treatment Reminders Order Date Submit Date Provider Last Modified By Organization Details Last Modified Time Details Appointments None recorded. Lab SARS CoV 2 (COVID-19) Ag, QL, IA, upper respiratory specimen 2023 024 SUNG _олег dang, [address] [place], [address], 4 12:57:30 rapid flu (A+B) 2023 024 SUNG [address]100[address]_олег [facility], [address] [place], [address], 4 12:57:19 Referral None recorded. Procedures None recorded. Surgeries None recorded. Imaging XR, chest, 2 view 2022 023 [facility] (Imaging), [address] [facility], [place], [address], 4 10:07:31 Medication Orders albuterol sulfate 2.5 mg/3 mL (0.083 %) solution for nebulizatio n 2022 023 [email or web address] Not available 4 11:32:24 ipratropium bromide 0.02 % solution for inhalation 2022 023 [email or web address] Not available 3 13:27:01 prednisone 20 mg tablet 2022 023 [email or web address] [facility], [address] [place], [address], 4 11:32:11 albuterol sulfate HFA 90 mcg/actuati on aerosol inhaler 2022 023 [email or web address] [facility], [address] [place], [address], 4 11:32:27 Allergy Relief (fluticason e) 50 mcg/actuati on nasal spray,suspe nsion 2022 023 [facility], [address] [place], [address], 3 13:10:28 benzonatate 100 mg capsule 2022 023 SUNG [facility], [address] [place], [address], 13:10:30 Patient TargetsNo targets recorded. Patient Instructions Encounter Date Encounter Id Patient Instructions Last Modified By Organization Details Last Modified Time 05/19/2023 [id number] peak flow* [email or web address] Not available 04/22 13:07:33 Patient instruct ed on worsening signs and symptoms that would require further evaluation by ED or PCP such as fever of 101.0 or greater, congestion accompanied with coughing, vomiting, diarrhea, abdominal pain, decreased oral intake, lethargy, or other new symptom(s) experienced not discussed during this visit. Use humidifier and ensure good hydration. If you experience new concerning symptoms, shortness of breath, respiratory distress, or chest pain go to the ER. Use the medications prescribed. May use Decongestants if tolerated and no history of elevated blood pressure or Diabetes. Use saline nasal saline and Flonase daily for1 week. You may use tylenol for pain/fever. Do not take prednisone with Ibuprofen. Get some extra rest. When should you call for help? Call anytime you think you may need emergency care. For example, call if: You have severe trouble breathing. Call your doctor now or seek immediate medical care if: You have new or worse trouble breathing. You cough up dark brown or bloody mucus (sputum). You have a new or higher fever. You have a new rash. Watch closely for changes in your health, and be sure to contact your doctor if: You cough more deeply or more often, especially if you notice more mucus or a change in the color of your mucus. You are not getting better as expected. [email or web address] Not available 05/19/2023 12:45:08 07/06/2023 [id number] You can use tylenol for pain every 4-6 hours as needed [email or web address] Not available 07/06/2023 15:39:45 11/01/2023 [id number] allergies: care instructions [email or web address] Not available 11/01/2023 11:48:27 Reason for Referral None Reported. Results Created Date Observation Date Name Description Value Unit Range Abnormal Flag Note LastModifiedBy Organization Detail LastModifiedTime 05/19/20 23 05/19/2023 peak flow* Pre (L/min) 100 Not Available 2099 [address] [place], [address], 05/19/2023 12:43:53 05/19/20 23 05/19/2023 peak flow* Post (L/min) 250 Not Available [id number] [address] [place], [address], 05/19/2023 12:43:53 05/19/20 23 05/19/2023 peak flow* Pulse 82 Not Available davin mcconnell [address] [place], [address], 05/19/2023 12:43:53 05/19/20 23 05/19/2023 peak flow* Oxygen Saturation 98% Not Available [id number] [address] [place], [address], 05/19/2023 12:43:53 11/01/19 24 11/01/2023 rapid flu (A+B) Unknown Analyte negati ve Not Available lida avila [address] [place], [address], 11/01/2023 11:48:10 11/01/19 24 11/01/2023 rapid flu (A+B) Unknown Analyte negati ve Not Available 2099lida avila [address] [place], [address], 11/01/2023 11:48:10 11/01/19 24 11/01/2023 rapid flu (A+B) Unknown Analyte yes Not Available [facility] [address] [place], [address], 11/01/2023 11:48:10 11/01/19 24 11/01/2023 SARS CoV 2 (COVI D-19) Ag, QL, IA, upper respi rator y speci men Unknown Analyte negati ve Not Available [address] [place], [address], 11/01/2023 11:48:09 11/01/19 24 11/01/2023 SARS CoV 2 (COVI D-19) Ag, QL, IA, upper respi rator y speci men Unknown Analyte yes Not Available [address] [place], [address], 11/01/2023 11:48:09 05/29/19 24 05/20/2023 XR, chest , 2 view No observ ation record ed. [facility] [address] [place], [address], 07/28/2023 13:52:06 06/12/19 24 05/20/2023 XR, chest , 2 view No observ ation record ed. [facility] (Imaging) [address] [place], [address], 08/02/2023 17:00:57 Result Notes None recorded. Problems Name Problem SNOMED Code Status Onset Date Resolution Date Notes Provider Name and Address Organization Details Recorded Time Hypertensive disorder 68725193 Active 2022 CEASAR zhang PA - [facility] 3 13:43:57 Hyperlipidem ia 71491459 Active 2022 CEASAR zhang PA - [facility] 3 13:44:06 Lyme disease 43366619 Completed TOMÁS zhang, PA - [facility] 3 13:41:07 Influenza-li ke illness 40311532 Active 2023 DEXTER BRUNNER NP [address] [facility] [facility] [address] , [place], [address] , [place] - [facility] 4 11:47:31 Problem Notes None recorded. Procedures Surgical History Date Name Laterality Status Provider Name and Address Organization Details Recorded Time Wound Care UC completed TOMÁS BHAKTA - [facility] 01/31/2023 13:37:58 extraction of cataract completed CEASAR BHAKTA - [facility] 10/07/2022 13:44:57 Imaging Results Imaging Date Name Status LastModified by Organiz ation Details LastModified Time 05/20/2023 XR, chest, 2 view completed [facility] [address] [place], [address], 07/28/2023 13:52:06 05/20/2023 XR, chest, 2 view completed [facility]) [address] [place], [address], 08/02/2023 17:00:57 Procedure Notes None recorded. Medical Equipment None Reported. Allergies No known drug allergies Medications Name Sig Start Date Stop Date Status Note LastModified by Organization Details LastModified Time doxycycli ne hyclate 100 mg capsule Take 2 capsules every day by oral route for 1 day. 01/31 completed Not Available Not Available Not Available atorvasta tin 20 mg tablet active Not Available Not Available Not Available albuterol sulfate 2.5 mg/3 mL (0.083 %) solution for nebulizat ion Inhale 2.5 mg by nebuliza tion route as directed for 1 day. 10/31 completed Billable unit is always one. Units are not the dose. Not Available Not Available Not Available prednison e 20 mg tablet Take 2 tablets every day by oral route in the morning for 4 days. 10/31 completed Not Available Not Available Not Available alendrona te 70 mg tablet active Not Available Not Available Not Available benzonata te 100 mg capsule Take 1 capsule 3 times a day by oral route as needed for 7 days. active Not Available Not Available No t Available metoprolo l succinate ER 25 mg tablet,ex tended release 24 hr active Not Available Not Available Not Available albuterol sulfate HFA 90 mcg/actua tion aerosol inhaler Inhale 2 puffs every 4-6 hours by inhalati on route as needed for 10 days. 10/31 completed Not Available Not Available Not Available fluticaso ne propionat e 50 mcg/actua tion nasal spray,harriett pension Sinai 1 spray every day by intranas al route as directed for 30 days. active Not Available Not Available No t Available ipratropi um bromide 0.02 % solution for inhalatio n Inhale 0.5 mg by inhalati on route as directed for 1 day. 2022 active Billable unit is always one. Units are not the dose. Not Available Not Available Not Available loratadin e active Not Available Not Available Not Available aspirin active Not Available Not Avail able Not Available Fosamax 12/09 completed Not Available Not Available Not Available metoprolo l succinate 04/07 completed Not Available Not Available Not Available Paxlovid 300 mg (150 mg x 2)-100 mg tablets in a dose pack Take 3 tablets twice a day by oral route with meals for 5 days. 01/26 completed Not Available Not Available Not Available Vitals Date Recorded Body height Body mass index (BMI) Body weight Oxygen saturation Oxygen saturation in Arterial blood by Pulse oximetry Body temperature Respiratory rate Heart rate Pain severity - 0-10 verbal numeric rating [Score] - Reported Systolic blood pressure Diastolic blood pressure Provider Name and Address Organization Details Last Updated DateTime 3 152.4 cm 19.1 kg/m2 04066.0 5 g 98 % 98 % 98.2 [degF] 18 /min 82 /min 0 134 mm[Hg] 90 mm[Hg] Tomás Rg PA - [facility] 3 12:06:27 Date Recorded Body height Body mass index (BMI) Body weight Body height Body mass index (BMI) Body weight Oxygen saturation Oxygen saturation in Arterial blood by Pulse oximetry Pain severity - 0-10 verbal numeric rating [Score] - Reported Heart rate Respiratory rate Body temperature Systolic blood pressure Diastolic blood pressure Provider Name and Address Organization Details Last Updated DateTime 4 152.4 cm 19.1 kg/m2 86083.0 5 g 152.4 cm 19.1 kg/m2 92470.0 5 g 98 % 98 % 0 89 /min 18 /min 97.7 [degF] 134 mm[Hg] 82 mm[Hg] Tomás Rg PA - [facility] 4 15:15:03 Date Recorded Body height Body mass index (BMI) Body weight Body temperature Respiratory rate Heart rate Oxygen saturation Oxygen saturation in Arterial blood by Pulse oximetry Pain severity - 0-10 verbal numeric rating [Score] - Reported Systolic blood pressure Diastolic blood pressure Provider Name and Address Organization Details Last Updated DateTime 4 152.4 cm 19.5 kg/m2 30992.2 4 g 97.7 [degF] 18 /min 65 /min 99 % 99 % 0 114 mm[Hg] 72 mm[Hg] Lynnette Mccarthyulet PA - [facility] 4 11:38:50 Date Recorded Body height Body mass index (BMI) Body weight Heart rate Pain severity - 0-10 verbal numeric rating [Score] - Reported Oxygen saturation Oxygen saturation in Arterial blood by Pulse oximetry Respiratory rate Body temperature Systolic blood pressure Diastolic blood pressure Provider Name and Address Organization Details Last Updated DateTime 4 152.4 cm 19.5 kg/m2 42330.2 4 g 95 /min 0 97 % 97 % 18 /min 97.5 [degF] 120 mm[Hg] 77 mm[Hg] Lynnette Burton PA - [facility] 4 11:36:29 Social History Question Answer Notes LastModified by Organizat ion Details LastModified Time Tobacco Smoking Status Never Smoker CEASAR zhang PA - [facility] 10/07/2022 13:44:28 What Is Your Level Of Alcohol Consumption? None Information not available 10/07/2022 Are You Currently Employed? No Information not available 10/07/2022 Have You Had A Flu Shot This Season? Yes Information not available 04/07/2023 Have You Had Direct Contact, Or Contact During Intimacy, With Monkeypox Rash, Scabs, Or Body Fluids From A Person With Monkeypox? No Information not available 10/07/2022 What Was The Date Of Your Most Recent Tobacco Screening? 04/07/2023 Information not available 04/07/2023 Do You Use Any Illicit Or Recreational Drugs? No Information not available 10/07/2022 Have You Recently Traveled Abroad? No Information not available 10/07/2022 Are You Currently In School? No Information not available 10/07/2022 Do You Or Have You Ever Used Any Other Forms Of Tobacco Or Nicotine? No Information not available 10/07/2022 Sex: Unknown Functional Status None recorded. Mental Status None recorded. Family History Relationship Description Onset Age of this Age Resolved Age Notes LastModified by Organization Details LastModified Time Father No current problems or disability Not available 09/19 13:44:15 Mother No current problems or disability Not available 09/19 13:44:15 Medical History No medical history recorded. Gynecological History Statement/Question Response Date of LMP Is there any chance of ? No LMP N/A Obstetrics History GPAL:G 0 P 0 0 0 0 Immunizations Vaccine Type Date Status Note Provider Nam e and Address Organization Details Recorded Time Influenza, recombinant, quadrivalent, PF 0 completed CEASAR GOODKIMBERLYND null, PA - [facility] 10/07/2022 13:42:43 Influenza, high-dose, quadrivalent, PF 2 completed CEASAR GOODHIND null, PA - [facility] 10/07/2022 13:42:43 Influenza, adjuvanted, quadrivalent, PF 1 completed CEASAR SOSAND null, PA - [facility] 10/07/2022 13:42:43 COVID-19, mRNA, LNP-S, PF, 30 mcg/0.3 mL dose 1 completed CEASAR GOODHIND null, PA - [facility] 10/07/2022 13:42:43 COVID-19, mRNA, LNP-S, PF, 30 mcg/0.3 mL dose 1 completed CEASAR SOSAND null, PA - [facility] 10/07/2022 13:42:43 COVID-19, mRNA, LNP-S, PF, 30 mcg/0.3 mL dose 1 completed CEASAR SOSAND null, PA - [facility] 10/07/2022 13:42:43 Pneumococcal conjugate PCV20, polysaccharide CWC925 conjugate, adjuvant, PF 3 completed CEASAR FERRARA null, PA - [facility] 10/07/2022 13:42:43 COVID-19, mRNA, LNP-S, PF, 30 mcg/0.3 mL dose, hector-sucrose 2 completed CEASAR SOSAND null, PA - [facility] 10/07/2022 13:42:43 COVID-19, mRNA, LNP-S, bivalent, PF, 30 mcg/0.3 mL dose 2 completed CEASAR SOSAND null, PA - [facility] 10/07/2022 13:42:43 Tdap 4 completed CEASAR SOSAND null, PA - [facility] 10/07/2022 13:42:43 Influenza, high-dose, trivalent, PF 5 completed CEASAR FERRARA null, PA - [facility] 10/07/2022 13:42:43 Influenza, split virus, trivalent, preservative 4 completed CEASAR PASTORHIND null, PA - [facility] 10/07/2022 13:42:43 Influenza, split virus, trivalent, preservative 9 completed CEASAR SOSAND null, PA - [facility] 10/07/2022 13:42:43 Influenza, split virus, trivalent, preservative 7 completed CEASAR SOSAND null, PA - [facility] 10/07/2022 13:42:43 Td (adult), 2 Lf tetanus toxoid, preservative free, adsorbed 0 completed CEASAR SOSAND null, PA - [facility] 10/07/2022 13:42:43 Influenza, split virus, quadrivalent, PF 6 completed CEASAR SOSAND null, PA - [facility] 10/07/2022 13:42:43 Influenza, high-dose, quadrivalent, PF 3 completed Yumiko Stephenie null, PA - [facility] 04/07/2023 12:56:20 COVID-19, mRNA, LNP-S, PF, hector-sucrose, 30 mcg/0.3 mL 3 completed Yumiko LIVIA Parada - [facility] 04/07/2023 12:56:20 Past Encounters Encounter ID Performer Location Encounter Start Date Encounter Closed Date Diagnosis/Indication Diagnosis SNOMED-CT Code Diagnosis ICD10 Code Diagnosis Note [id number] [facility] [address] [place] [address] 09/28/2021 09:42:38 09/28/2021 13:01:[id number] [facility] [place] [address] 12/12/2020 14:20:47 12/12/2020 15:27:27 [id number] [address] [facility] [place] [address] 11/25/2020 11:02:37 11/25/2020 12:14:55 [id number] [address] [place] [address] 08/14/2020 09:43:35 08/14/2020 10:25:50 [id number] [address] [place] [address] 11/08/2019 18:48:17 11/08/2019 19:36:14 [id number] [address] [facility] [place] [address] 10/23/2020 09:52:29 10/23/2020 10:37:23 [id number] [address] [place] [address] 08/26/2020 11:13:00 08/26/2020 12:24:17 [id number] [address] Carin Zamorar [address] [facility] [place] [address] 12/19/2021 11:04:32 12/19/2021 13:26:47 [id number] [address] [place] [address] 11/24/2020 11:03:58 11/24/2020 11:42:10 [id number] LIVIA GARCIA [address] [address] 10/07/2022 12:22:16 10/07/2022 15:13:39 Hypertensive disorder 28373757 I10 Your blood pressure was elevated today - you need to follow up with your PCP for this. Medication may need to be adjusted. Please keep a journal of AM and PM readings from a home cuff. This will help adjust medication s. Pain of right thigh 3169 192545 47498 M79.651 X-ray does not show any fracture of bony lesions.No evidence of any fracture on the x-ray. I am going to send it to the radiologis t to review. I will call you if there is any discrepanc ies. Strain of right quadriceps muscle [id number] 8337219 S76.111A Based on exam, I think you differenti al would be either a strain of the quadricep muscle or a pinched nerve in the region of your hip. I am going to write you an antiinflam matory medication to start taking. [id number] Benjamin Blue NP [address] [address] 12/09/2022 13:58:31 12/09/2022 14:58:47 Exposure to SARS-CoV-2 647709585 Z20.822 COVID-19 493443882 U07.1 Acute sinusitis 43286244 J01.90 [id number] [place] [address] [place] [address] 01/26/2023 09:55:53 01/26/2023 10:39:52 Localized eruption of skin 071556533 R21 appears to be a previous tick bit, no tick seen today but would suggest prophylact ic dose Doxycyclin e Advised to kashia the area and monitor for increasing size of rash or bullseye. Monitor for symptoms : Onset of symptoms is three to 14 days (average seven days) after tick bite. Initial symptoms may include: high fever, severe headache, muscle aches, nausea, vomiting and loss of appetite. Later symptoms: rash (two to six days after onset of fever), abdominal pain, joint pain and diarrhea.Alondra pillai follow up with PCP or Urgent Care in 3-5 days if no improvemen t or if any new symptoms occur that are concerning .Call 911 or go to nearest ER if you develop any shortness of breath, chest pain, severe headache, dizziness, or other concerning symptoms [id number] LIVIA MATTHEWS [address] [place] [address] 01/31/2023 13:32:34 01/31/2023 14:07:42 Suspected Lyme disease 803026535 Z20.818 [id number] [place] [address] [place] [address] 04/07/2023 12:31:08 04/07/2023 14:06:45 Tick bite 29308323 W57.XXXA Puncture w ound of left upper arm 8272850920 2774088 S41.132A [id number] Benjamin Blue NP [address] [place] [address] 05/19/2023 11:13:01 05/19/2023 13:12:13 Acute bronchitis 03639655 J20.9 [id number] Benjamin Blue NP [address] [place] [address] 07/06/2023 12:31:59 07/08/2023 08:24:28 Left without being seen [id number] 9102 Z53.21 [id number] ALEJANDRA GOLDSTEIN MD [address] [place] [address] 07/06/2023 14:53:11 07/06/2023 15:43:59 Sore throat 462805830 J02.9 Sore throatClea r liquids for comfortFre sh Jak Root Tea-Cut up fresh jak root and boil it till fragrant. drink the liquid as a tea. Can add Honey to taste. Also For Sore Throat:Thr oat Comfort Tea(by [employer])Thro at Coat Tea( by [employer] ) Clear broth soup: Vegetable, Chicken or Beef as tolerated. Salt Water GarglesMix 1 teaspoonfu l of salt in a glass of warm water. Gargle and spit out the salt water mixture one mouthful at a time until the glass is empty. Repeat 4 times daily. Ganglion c yst of left hand 0184841488 89827 M67.442 Follow up with your PCP if the cyst gets worse. [id number] LIVIA Priest [address] [place] [address] 10/13/2023 11:29:56 10/13/2023 11:56:19 Benign pigmented skin lesion 669983368 L81.9 Motley hemangioma s, also known as Owens de Dave spots or senile angiomas, are small, noncancero us, red or purplish bumps that are a natural part of aging in adults. They are caused by an overgrowth of tiny blood vessels in the skin and are the most common type of acquired vascular proliferat ion of the skin. These are not dangerous or worrisome in any way, and will likely not change room attendant time. If you start to have pain or itching in the area of your hemangioma , please follow up with your PCP or gynecology Thank you for using [facility] today, please feel free to contact our office if you have any questions or concerns. [id number] [place] [address] [place] [address] 11/01/2023 11:07:41 11/01/2023 12:16:57 Influenza-like illness 19544771 B34.9 Health Concerns Section Related Observation LastModified by Organization Detai ls LastModified Time None Recorded Concern Status LastModified by Organization Details LastModified Time None Recorded Advance Directives Directive None Recorded Payers Encounter Date Sequence Insurance Name Policy Number Policy Stovall Covered Member ID Stovall Member ID Guarantor Name 05/19/2023 1 [place] [employer] Lula Kaur [id number] Lula Kaur 05/19/2023 2 [facility] Lula Kaur [id number] Lula Kaur 07/06/2023 1 [place] [facility] Lula Kaur [id number] Lula Kaur 07/06/2023 2 [facility] Lula Kaur [id number] Lula Kaur 07/06/2023 1 [place] [facility] Lula Kaur [id number] Lula Kaur 07/06/2023 2 [facility] Lula Kaur [id number] Lula Kaur 10/13/2023 1 [place]: [facility] Lula Kaur [id number] Lula Kaur 10/13/2023 2 [facility] Lula Kaur [id number] Lula Kaur 11/01/2023 1 [place] [facility] Lula Kaur [id number] Lula Kaur 11/01/2023 2 [facility] Lula Kaur [id number] Lula Kaur Notes Date Note Type Note Provider Name and Address Organization Details Recorded Time 3 text/html CoughReported bypatient.source of patient informationInformation obtained from patient; Patient arrived at Urgent Care ambulatory; learning styles: auditory Quality:harsh;dry; intermittent; symptoms worse with lying down Severity:worsening;pain with cough; moderate Duration:constant; symptoms lasting over 2 weeks Timing:worsening; gradual Context:Patient denies vaping; non-smoker;history of bronchitis Modifying Factors:at night Associated Symptoms:no fever; no chills; no chest pain; no heartburn; no nausea; no vomiting; no edema; no agitation; no wheezing; no post nasal drip;hurts to breath Benjamin Blue NP [address] [place], [address], [place] - [facility] 05/19/2023 13:12:36 4 text/html Sore throatReported bypatient.Location:throat Severity:mild Quality:dull Onset/Timin days Associated Symptoms:no cough; no sputum production; no shortness of breath; no wheezing; no sinus pain; no vomiting; no nausea; No hoarseness Context:no sick contacts; no foreign travel; non-smoker ALEJANDRA GOLDSTEIN MD [address] [place], [address], [facility] 07/06/2023 16:21:48 4 text/html 73 y/o female here with red spot on her L inner labia that she is worried could be a tick bite. No pain or itching, did not see a bug in that area LIVIA Priest [address] [place], [address], [facility] 10/13/2023 11:57:57 OBGyn Episode No OBEpisode recorded.
== END 2024-08-01 10:58 | disposition home or self-care (01) ==
LOC: HO.HMCH 10:07
PROVIDERS: PCP Internal Medicine; Visit Provider Internal Medicine
DX: Z00.00 Encounter for general adult medical examination without abnormal findings (principal)

== ENCOUNTER → 2024-08-01 10:06 | Outpatient (BNVA) | payer MEDICARE, OTHER, SELFPAY | PROVIDERS: PCP Internal Medicine; Visit Provider Internal Medicine | DX: Z00.00 Encounter for general adult medical examination without abnormal findings (principal); I10 Essential (primary) hypertension; E78.5 Hyperlipidemia, unspecified | CPT/HCPCS: 96127 ==

== ENCOUNTER 2024-08-05 10:38 | Outpatient (AMB) | payer MEDICARE, OTHER, SELFPAY ==
[2024-08-05 10:44] VITALS: BP 112/64; PULSE 83; BMI 18.9
--- NOTE | 2024-08-05 10:44 | A.OFFVIS_ITS ---
Vital Signs 08/05/24 10:44 Height 5 ft Weight 97 lb 0.054 oz BMI 18.9 BP 112/64 Blood Pressure Location Lt brachial Position Sitting Pulse 83 Intake Visit Reasons: Follow up Intake Note: Overdue Follow-up with ekg dx CAD feeling good Mine Technician Required: No Allergies No Known Allergies Allergy (Verified 08/01/24 10:31) Medication List - Last Reconciled 08/05/24 by Leonel Estrada MD alendronate 70 mg PO QWEEK aspirin 81 mg PO DAILY atorvastatin 20 mg PO BEDTIME calcium carbonate 600 mg PO BID 90 days cholecalciferol (vitamin D3) 50 mcg PO DAILY 90 days loratadine (Allergy Relief (loratadine)) 10 mg PO DAILY PRN magnesium 200 mg PO DAILY metoprolol succinate ER 25 mg PO DAILY HPI Comments Details: Lula comes for follow-up. She has overall been doing well. She says she has slowed down a little bit since been started on metoprolol therapy. Otherwise she was tolerating her medications well. She is concerned about aspirin therapy. She denies any anginal symptoms at current point time. She denies any heart failure symptoms. Denies any prolonged palpitation irregular heartbeat. No lightheadedness, syncope. [facility] History Long-term current use of bisphosphonate Skin lesion Hypovitaminosis D Allergic rhinitis Age related osteoporosis HTN (hypertension) Hyperlipemia Post-menopausal bleeding Surgical History H/O colonoscopy History of wisdom tooth extraction Family History Father CVD (cardiovascular disease) Stroke Staph infection Mother Hypertension CVD (cardiovascular disease) Non-alcoholic cirrhosis Brother Healthy adult Social History Housing: House Alcohol intake: never Patient Tobacco Use Status: Never used Tobacco Tobacco use type: Cigarette e-Cigarette/Vaping Use: Never Used Second Hand Smoke Exposure: No service: No Current occupational status: employed Current occupational exposures/hazards: No Gender identity: Female Cognitive needs: No Hearing needs: No Vision needs: Yes Female Reproductive History Menstrual Age of Menarche: 10 Review of Systems Const Denies chills, Denies fatigue, Denies fever(s), Denies frequent falls, Denies weakness, Denies weight gain and Denies weight loss ENT Denies dizziness Card Denies chest pain, Denies leg edema, Denies lightheadedness, Denies palpitations, Denies dyspnea, Denies dyspnea on exertion, Denies orthopnea and Denies other (loss of consciousness) Resp Denies cough, Denies dyspnea and Denies dyspnea on exertion GI Denies hematochezia and Denies change in stool character Musc Denies abnormal gait, Denies muscle weakness, Denies numbness, Denies radiating pain into limb and Denies tingling Neuro Denies abnormal gait, Denies dizziness, Denies frequent falls, Denies numbness, Denies tingling and Denies weakness Endo Denies fatigue and Denies palpitations Physical Exam Vital Signs: Last Vital Signs Pulse 83 08/05/24 10:44 BP 112/64 08/05/24 10:44 BMI result Body Mass Index 18.9 Const General: cooperative, comfortable, no acute distress, alert, awake and well groomed Nutritional Appearance: thin Orientation/consciousness: patient oriented x3 Limitations: no limitations Neck Neck: Yes normal visual inspection and Yes no JVD Resp Effort & Inspection: normal respiratory effort Auscultation: clear to auscultation bilaterally, no crackles, no rales, no rhonchi and no wheezes Cardio Jugular venous distension: no JVD Rate: regular rate Rhythm: regular rhythm Heart sounds: S1 normal heart sound present, S2 normal heart sound present, no gallops, no murmurs and no rubs Peripheral pulses: Peripheral pulses 2+ throughout Neuro General: patient oriented x3 Extrem General: Yes normal to inspection Psych Appearance: grossly normal Mental Status: mental status grossly normal Speech and movement: Normal speech and movement present Office Procedures EKG Details: EKG shows normal sinus rhythm with sinus arrhythmia with possible left atrial enlargement otherwise normal EKG 45619-Xreramuolbgcgoavo, Complete Assessment & Plan Assessment & Plan (1) Coronary atherosclerosis: Code(s): I25.10 - Atherosclerotic heart disease of qagan [place]agung[place] coronary artery without angina pectoris Category: Medical Plan: CAD with diffuse atherosclerosis with no symptoms of angina on current medical therapy. She was done well with metoprolol therapy. Continue the same. Importance of low-dose aspirin therapy to reduce vascular events was discussed, more beneficial than risky and this was discussed. Continue statin therapy with target goal LDL less than 55 mg/dL. Advised lipid panel in near future. Continue aggressive blood pressure control. (2) HTN (hypertension): Code(s): I10 - Essential (primary) hypertension Category: Medical Plan: Blood pressure is currently well optimized advised to monitor blood pressure at home maintain a log. Goal blood pressure less than 130/84. Low-salt diet was discussed. Continue maintain activity level as tolerated. Will follow up in the clinic in 1 year's time, sooner p.r.n.. Thank you for allowing me to partake in her care Orders: Orders Lipid Panel Today I25.10 - Atherosclerotic heart disease of qagan [place]ung[place] coronary artery without angina pectoris Coding Level of Care Code Est Pt Level 4 (89782) Complex EM visit Add On G2211 Diagnoses Coronary atherosclerosis I25.10 HTN (hypertension) I10 CPT Codes EKG - CPT: 37502-Rfsicqysecvlcbccw, Complete ([id number])
--- OUTSIDE RECORDS SUMMARY | 2024-08-05 12:03 | XMS_ITS | Data Portability ---
Author Organization LIVIA osorio [address] Address [address] [place] [address] Care Team Providers Care Recordak Operator Name Role Phone [facility] Primary Care Provider [phone] Assessment Encounter Date Assessment Date Assessment LastModified [...] Selzer Cold/Flu Effervescent Pills 3. Saline Nasal [place] Try an avoid other people and wash [...] specimen 2023 024 SUNG _олег dang, [address] [place], [address], 4 12:57:30 rapid flu (A+B) 2023 024 SUNG [address]_[facility], [address] [place], [address], 4 12:57:19 Referral None recorded. Procedures None recorded. Surgeries None recorded. Imaging XR, chest, 2 view 2022 023 [facility] (Im[facility]), [address] [facility], [place], [address], 4 10:07:31 Medication Orders albuterol sulfate 2.5 mg/3 mL (0.083 %) solution for nebulizatio n 2022 023 [email or web address] Not available 4 11:32:24 ipratropium bromide 0.02 % solution for inhalation 2022 023 [email or web address] Not available 3 13:27:01 prednisone 20 mg tablet [email or web address] [facility], [address] [place], [address], 4 11:32:11 albuterol sulfate HFA 90 mcg/actuati on aerosol inhaler [email or web address] [facility], [address] [place], [address], 4 11:32:27 Allergy Relief (fluticason e) 50 mcg/actuati on nasal spray,suspe nsion 2022 023 [facility], [address] [place], [address], 3 13:10:28 benzonatate 100 mg capsule 2022 023 SUNG [facility], [address] [place], [address], 13:10:30 Patient TargetsNo targets recorded. Patient Instructions Encounter Date Encounter Id Patient Instructions Last Modified By Organization Details Last Modified Time 05/19/2023 [id number] peak flow* [email or web address] Not available 04/22 13:07:33 [...] expected. [email or web address] Not available 05/19/2023 12:45:08 07/06/2023 [id number] You can use tylenol for pain every 4-6 hours as needed [email or web address] Not available 07/06/2023 15:39:45 11/01/2023 [id number] allergies: care instructions [email or web address] Not available 11/01/2023 11:48:27 Reason for Referral None Reported. Results Created Date Observation Date Name Description Value Unit Range Abnormal Flag Note LastModifiedBy Organization Detail LastModifiedTime 05/19/20 23 05/19/2023 peak flow* Pre (L/min) 100 Not Available 2099 [address] [place], [address], 05/19/2023 12:43:53 05/19/20 23 05/19/2023 peak flow* Post (L/min) 250 Not Available [id number] _олег [address] [place], [address], 05/19/2023 12:43:53 05/19/20 23 05/19/2023 peak flow* Pulse 82 Not Available davin mcconnell [address] [place], [address], 05/19/2023 12:43:53 05/19/20 23 05/19/2023 peak flow* Oxygen Saturation 98% Not Available [id number] [address] [place], [address], 05/19/2023 12:43:53 11/01/19 24 11/01/2023 rapid flu (A+B) Unknown Analyte negati ve Not Available lida avila [address] [place], [address], 11/01/2023 11:48:10 11/01/19 24 11/01/2023 rapid flu (A+B) Unknown Analyte negati ve Not Available 2099lida avila [address] [place], [address], 11/01/2023 11:48:10 11/01/19 24 11/01/2023 rapid flu (A+B) Unknown Analyte yes Not Available [facility] [address] [place], [address], 11/01/2023 11:48:10 11/01/19 24 11/01/2023 SARS CoV 2 (COVI D-19) Ag, QL, IA, upper respi rator y speci men Unknown Analyte negati ve Not Available [address] [place], [address], 11/01/2023 11:48:09 11/01/19 24 11/01/2023 SARS CoV 2 (COVI D-19) Ag, QL, IA, upper respi rator y speci men Unknown Analyte yes Not Available _ [address] [place], [address], 11/01/2023 11:48:09 05/29/19 24 05/20/2023 XR, chest , 2 view No observ ation record ed. [facility] [address] [place], [address], 07/28/2023 13:52:06 06/12/19 24 05/20/2023 XR, chest , 2 view No observ ation record ed. [facility] ([facility]) [address] [place], [address], 08/02/2023 17:00:57 Result Notes None recorded. Problems Name Problem SNOMED Code Status Onset Date Resolution Date Notes Provider Name and Address Organization Details Recorded Time Hypertensive disorder 97958023 Active 2022 CEASAR zhang PA - [facility] 3 13:43:57 Hyperlipidem ia 96470015 Active 2022 CEASAR zhang PA - [facility] 3 13:44:06 Lyme disease 07004331 Completed TOMÁS zhang, PA - [facility] 3 13:41:07 Influenza-li ke illness 84791131 Active 2023 DEXTER BRUNNER NP [address] [facility] [address] , [place], [address] , [place] - [facility] 4 11:47:31 [...] Time 05/20/2023 XR, chest, 2 view completed [facility] [address] [place], [address], 07/28/2023 13:52:06 05/20/2023 XR, chest, 2 view completed [facility] ([facility]) [address] [place], [address], 08/02/2023 17:00:57 Procedure Notes None recorded. Medical [...] e 50 mcg/actua tion nasal spray,harriett pension [place] 1 spray every day by intranas al [...] Updated DateTime 3 152.4 cm 19.1 kg/m2 94460.0 5 g 98 % 98 % 98.2 [...] Updated DateTime 4 152.4 cm 19.1 kg/m2 68003.0 5 g 152.4 cm 19.1 kg/m2 11032.0 5 g 98 % 98 % 0 [...] Updated DateTime 4 152.4 cm 19.5 kg/m2 28756.2 4 g 97.7 [degF] 18 /min 65 [...] Updated DateTime 4 152.4 cm 19.5 kg/m2 66892.2 4 g 95 /min 0 97 % 97 % 18 /min 97.5 [degF] 120 mm[Hg] 77 mm[Hg] Lynnette Burton PA - [facility] 4 11:36:29 Social History Question Answer Notes LastModified by Organizat ion Details LastModified Time Tobacco Smoking Status Never Smoker CEASAR zhang PA - [facility] 10/07/2022 13:44:28 What Is Your Level [...] [facility] 10/07/2022 13:42:43 Pneumococcal conjugate PCV20, polysaccharide TIH908 conjugate, adjuvant, PF 3 completed CEASAR FERRARA [...] SNOMED-CT Code Diagnosis ICD10 Code Diagnosis Note [id number] [address] [address] [place] [address] 09/28/2021 09:42:38 09/28/2021 13:01:56 [id number] [facility] [place] [address] 12/12/2020 14:20:47 12/12/2020 15:27:27 [id number] [address] [facility] [place] [address] 11/25/2020 11:02:37 11/25/2020 12:14:55 [id number] [address] [place] [address] 08/14/2020 09:43:35 08/14/2020 10:25:50 [id number] [address] [place] [address] 11/08/2019 18:48:17 11/08/2019 19:36:14 [id number] [address] [place] [address] 10/23/2020 09:52:29 10/23/2020 10:37:23 [id number] [address] [place] [address] 08/26/2020 11:13:00 08/26/2020 12:24:17 [id number] 20[address] Carin [address]or[address] [facility] [place] [address] 12/19/2021 11:04:32 12/19/2021 13:26:47 [id number] [address] [place] [address] 11/24/2020 11:03:58 11/24/2020 11:42:10 [id number] LIVIA GARCIA [address] [address] 10/07/2022 12:22:16 10/07/2022 15:13:39 Hypertensive disorder 39687880 I10 Your blood pressure was elevated today - you need to follow up with your PCP for this. Medication may need to be adjusted. Please keep a journal of AM and PM readings from a home cuff. This will help adjust medication s. Pain of right thigh [id number] 56057 M79.651 X-ray does not show any fracture of bony lesions.No evidence of any fracture on the x-ray. I am going to send it to the radiologis t to review. I will call you if there is any discrepanc ies. Strain of right quadriceps muscle [id number] 2670096 S76.111A Based on exam, I think you differenti al would be either a strain of the quadricep muscle or a pinched nerve in the region of your hip. I am going to write you an antiinflam matory medication to start taking. [id number] Benjamin Blue NP [address] [address] 12/09/2022 13:58:31 12/09/2022 14:58:47 Exposure to SARS-CoV-2 141954971 Z20.822 COVID-19 063108838 U07.1 Acute sinusitis 31493713 J01.90 [id number] [place] [address] [place] [address] 01/26/2023 09:55:53 01/26/2023 10:39:52 Localized eruption of skin 715438332 R21 appears to be a previous tick bit, no tick seen today but would suggest prophylact ic dose Doxycyclin e Advised to [place] the area and monitor for increasing size [...] severe headache, dizziness, or other concerning symptoms [id number] LIVIA MATTHEWS [address] [place] [address] 01/31/2023 13:32:34 01/31/2023 14:07:42 Suspected Lyme disease 136405878 Z20.818 [id number] [place] [address] [place] [address] 04/07/2023 12:31:08 04/07/2023 14:06:45 Tick bite 48393294 W57.XXXA Puncture w ound of left upper arm 7700214467 8530765 S41.132A [id number] Benjamin Blue NP [address] [place] [address] 05/19/2023 11:13:01 05/19/2023 13:12:13 Acute bronchitis 73996222 J20.9 [id number] Benjamin Blue NP [address] [place] [address] 07/06/2023 12:31:59 07/08/2023 08:24:28 Left without being seen 8819095822 9102 Z53.21 [id number] ALEJANDRA GOLDSTEIN MD [address] [place] [address] 07/06/2023 14:53:11 07/06/2023 15:43:59 Sore throat 515782509 J02.9 Sore throatClea r liquids for comfortFre [...] daily. Ganglion c yst of left hand 6216713299 31353 M67.442 Follow up with your PCP if the cyst gets worse. 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 If you start to have pain or itching in the area of your hemangioma , please follow up with your PCP or gynecology Thank you for using [facility] today, please feel free to contact our office if you have any questions or concerns. [id number] [place] [address] [place] [address] 11/01/2023 11:07:41 11/01/2023 12:16:57 Influenza-like illness 51112440 B34.9 Health Concerns Section Related Observation LastModified by Organization Detai ls LastModified Time None Recorded Concern Status LastModified by Organization Details LastModified Time None Recorded Advance Directives Directive None Recorded Payers Encounter Date Sequence Insurance Name Policy Number Policy Stovall Covered Member ID Stovall Member ID Guarantor Name 05/19/2023 1 [place] [employer] Lula Kaur [id number] Lula Kaur 05/19/2023 2 [facility] Lula Kaur [id number] Lula Kaur 07/06/2023 1 [place] [facility] Lula Kaur [id number] Lula Kaur 07/06/2023 2 [facility] Lula Kaur [id number] Lula Kaur 07/06/2023 1 [place] [facility] Lula Kaur [id number] Lula Kaur 07/06/2023 2 [facility] Lula Kaur [id number] Lula Kaur 10/13/2023 1 [place] [facility] Lula Kaur [id number] Lula Kaur 10/13/2023 2 [facility] Lula Kaur [id number] Lula Kaur 11/01/2023 1 [place] [facility] Lula Kaur [id number] Lula Kaur 11/01/2023 2 [facility] Lula Kaur [id number] Lula Kaur Notes Date Note Type [...] Benjamin Blue NP [address] [place], [address], [place] - [facility] 05/19/2023 13:12:36 4 text/html Sore throatReported bypatient.Location:throat Severity:mild Quality:dull Onset/Timin days Associated Symptoms:no cough; no sputum production; no shortness of breath; no wheezing; no sinus pain; no vomiting; no nausea; No hoarseness Context:no sick contacts; no foreign travel; non-smoker ALEJANDRA GOLDSTEIN MD [address] [place], [address], [facility] 07/06/2023 16:21:48 4 text/html 73 y/o female here with red spot on her L inner labia that she is worried could be a tick bite. No pain or itching, did not see a bug in that area LIVIA Priest [address] [place], [address], [facility] 10/13/2023 11:57:57 OBGyn Episode No OBEpisode recorded.
== END 2024-08-05 11:17 | disposition home or self-care (01) ==
PROVIDERS: PCP Internal Medicine; Visit Provider Internal Medicine Cardiovascular Disease
DX: I25.10 Atherosclerotic heart disease of native coronary artery without angina pectoris (principal); I10 Essential (primary) hypertension
CPT/HCPCS: 93010; 99214; G2211

== ENCOUNTER → 2024-08-05 10:38 | Outpatient (BNVA) | payer MEDICARE, OTHER, SELFPAY | PROVIDERS: PCP Internal Medicine; Visit Provider Internal Medicine Cardiovascular Disease | DX: I25.10 Atherosclerotic heart disease of native coronary artery without angina pectoris (principal); I10 Essential (primary) hypertension | CPT/HCPCS: 93005; 99212 ==

== ENCOUNTER 2024-09-02 10:21 | Outpatient (REF) | payer MEDICARE, OTHER, SELFPAY ==
[2024-09-02 11:41] LABS: Calcium 9.2 mg/dL (8.4-10.2); Cholesterol 114 mg/dL (<200); Estimated Glomerular Filt Rate > 60; HDL Cholesterol 37 mg/dL (>40); LDL Cholesterol Calculated 60 mg/dL (<100); Triglycerides 88 mg/dL (<150)
--- OUTSIDE RECORDS SUMMARY | 2024-09-02 11:52 | XMS_ITS | Data Portability ---
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 Saline Nasal [place] Try an avoid other people and wash [...] specimen 2023 024 SUNG _олег dang, [address] [place], [address], 4 12:57:30 rapid flu (A+B) 2023 024 SUNG [address]100[address]_олег [facility], [address] [place], [address], 4 12:57:19 Referral None recorded. Procedures None recorded. Surgeries None recorded. Imaging XR, chest, 2 view 2022 023 [facility] [address] [facility], [place], [address], 4 10:07:31 Medication Orders albuterol sulfate 2.5 mg/3 mL (0.083 %) solution for nebulizatio n 2022 023 [email or web address] Not available 4 11:32:24 ipratropium bromide 0.02 % solution for inhalation 2022 023 [email or web address] Not available 3 13:27:01 prednisone 20 mg tablet 2022 023 [email or web address] [facility], [address] [place], [address], 4 11:32:11 albuterol sulfate HFA 90 mcg/actuati on aerosol inhaler 2022 023 [email or web address] [facility], [address] [place], [address], 4 11:32:27 Allergy Relief (fluticason e) 50 mcg/actuati on nasal spray,suspe nsion 2022 023 [facility], [address] [place], [address], 3 13:10:28 benzonatate 100 mg capsule 2022 023 SUNG [facility], [address] [place], [address], 13:10:30 Patient TargetsNo targets recorded. Patient Instructions Encounter Date Encounter Id Patient Instructions Last Modified By Organization Details Last Modified Time 05/19/2023 [id number] peak flow* [email or web address] Not available 04/22 13:07:33 [...] expected. [email or web address] Not available 05/19/2023 12:45:08 07/06/2023 [id number] You can use tylenol for pain every 4-6 hours as needed [email or web address] Not available 07/06/2023 15:39:45 11/01/2023 [id number] allergies: care instructions [email or web address] Not available 11/01/2023 11:48:27 Reason for Referral None Reported. Results Created Date Observation Date Name Description Value Unit Range Abnormal Flag Note LastModifiedBy Organization Detail LastModifiedTime 05/19/20 23 05/19/2023 peak flow* Pre (L/min) 100 Not Available 2099 [address] [place], [address], 05/19/2023 12:43:53 05/19/20 23 05/19/2023 peak flow* Post (L/min) 250 Not Available [id number] _олег [address] [place], [address], 05/19/2023 12:43:53 05/19/20 23 05/19/2023 peak flow* Pulse 82 Not Available davin mcconnell [address] [place], [address], 05/19/2023 12:43:53 05/19/20 23 05/19/2023 peak flow* Oxygen Saturation 98% Not Available [id number] [address] [place], [address], 05/19/2023 12:43:53 11/01/19 24 11/01/2023 rapid flu (A+B) Unknown Analyte negati ve Not Available lida avila [address] [place], [address], 11/01/2023 11:48:10 11/01/19 24 11/01/2023 rapid flu (A+B) Unknown Analyte negati ve Not Available 2099lida avila [address] [place], [address], 11/01/2023 11:48:10 11/01/19 24 11/01/2023 rapid flu (A+B) Unknown Analyte yes Not Available [facility] [address] [place], [address], 11/01/2023 11:48:10 11/01/19 24 11/01/2023 SARS CoV 2 (COVI D-19) Ag, QL, IA, upper respi rator y speci men Unknown Analyte negati ve Not Available [address] [place], [address], 11/01/2023 11:48:09 11/01/19 24 11/01/2023 SARS CoV 2 (COVI D-19) Ag, QL, IA, upper respi rator y speci men Unknown Analyte yes Not Available _ [address] [place], [address], 11/01/2023 11:48:09 05/29/19 24 05/20/2023 XR, chest , 2 view No observ ation record ed. [facility] [address] [place], [address], 07/28/2023 13:52:06 06/12/19 24 05/20/2023 XR, chest , 2 view No observ ation record ed. [facility]) [address] [place], [address], 08/02/2023 17:00:57 Result Notes None recorded. Problems Name Problem SNOMED Code Status Onset Date Resolution Date Notes Provider Name and Address Organization Details Recorded Time Hypertensive disorder 02300535 Active 2022 CEASAR zhang PA - [facility] 3 13:43:57 Hyperlipidem ia 67249749 Active 2022 CEASAR zhang PA - [facility] 3 13:44:06 Lyme disease 82793694 Completed TOMÁS zhang, PA - [facility] 3 13:41:07 Influenza-li ke illness 65591969 Active 2023 DEXTER BRUNNER NP [address] , [place], [address] , [place] - [facility] 4 11:47:31 [...] Time 05/20/2023 XR, chest, 2 view completed [facility] [address] [place], [address], 07/28/2023 13:52:06 05/20/2023 XR, chest, 2 view completed [facility] [address] [place], [address], 08/02/2023 17:00:57 Procedure Notes None recorded. Medical [...] e 50 mcg/actua tion nasal spray,harriett pension [place] 1 spray every day by intranas al [...] Updated DateTime 3 152.4 cm 19.1 kg/m2 98616.0 5 g 98 % 98 % 98.2 [...] Updated DateTime 4 152.4 cm 19.1 kg/m2 20127.0 5 g 152.4 cm 19.1 kg/m2 76319.0 5 g 98 % 98 % 0 [...] Updated DateTime 4 152.4 cm 19.5 kg/m2 15929.2 4 g 97.7 [degF] 18 /min 65 [...] Updated DateTime 4 152.4 cm 19.5 kg/m2 85606.2 4 g 95 /min 0 97 % 97 % 18 /min 97.5 [degF] 120 mm[Hg] 77 mm[Hg] Lynnette Burton PA - [facility] 4 11:36:29 Social History Question Answer Notes LastModified by Organizat ion Details LastModified Time Tobacco Smoking Status Never Smoker CEASAR zhang PA - [facility] 10/07/2022 13:44:28 What Is Your Level [...] [facility] 10/07/2022 13:42:43 Pneumococcal conjugate PCV20, polysaccharide KOQ740 conjugate, adjuvant, PF 3 completed CEASAR FERRARA [...] SNOMED-CT Code Diagnosis ICD10 Code Diagnosis Note [id number] [address] [address] [place] [address] 09/28/2021 09:42:38 09/28/2021 13:01:56 [id number] [facility] [place] [address] 12/12/2020 14:20:47 12/12/2020 15:27:27 [id number] [address] [facility] [place] [address] 11/25/2020 11:02:37 11/25/2020 12:14:55 [id number] [address] [place] [address] 08/14/2020 09:43:35 08/14/2020 10:25:50 [id number] [address] [place] [address] 11/08/2019 18:48:17 11/08/2019 19:36:14 [id number] [address] [facility] [place] [address] 10/23/2020 09:52:29 10/23/2020 10:37:23 [id number] [address] [place] [address] 08/26/2020 11:13:00 08/26/2020 12:24:17 [id number] 20995_Chi Carin Zamorar [address] [facility] [place] [address] 12/19/2021 11:04:32 12/19/2021 13:26:47 [id number] [address] [place] [address] 11/24/2020 11:03:58 11/24/2020 11:42:10 [id number] LIVIA GARCIA [address] [address] 10/07/2022 12:22:16 10/07/2022 15:13:39 Hypertensive disorder 24076619 I10 Your blood pressure was elevated today - you need to follow up with your PCP for this. Medication may need to be adjusted. Please keep a journal of AM and PM readings from a home cuff. This will help adjust medication s. Pain of right thigh 3169 254677 61255 M79.651 X-ray does not show any fracture of bony lesions.No evidence of any fracture on the x-ray. I am going to send it to the radiologis t to review. I will call you if there is any discrepanc ies. Strain of right quadriceps muscle [id number] 4669591 S76.111A Based on exam, I think you differenti al would be either a strain of the quadricep muscle or a pinched nerve in the region of your hip. I am going to write you an antiinflam matory medication to start taking. [id number] Benjamin Blue NP [address] [address] 12/09/2022 13:58:31 12/09/2022 14:58:47 Exposure to SARS-CoV-2 537435468 Z20.822 COVID-19 280092905 U07.1 Acute sinusitis 06267490 J01.90 [id number] [place] [address] [place] [address] 01/26/2023 09:55:53 01/26/2023 10:39:52 Localized eruption of skin 825383281 R21 appears to be a previous tick bit, no tick seen today but would suggest prophylact ic dose Doxycyclin e Advised to [place] the area and monitor for increasing size [...] severe headache, dizziness, or other concerning symptoms [id number] LIVIA MATTHEWS [address] [place] [address] 01/31/2023 13:32:34 01/31/2023 14:07:42 Suspected Lyme disease 319633975 Z20.818 [id number] [place] [address] [place] [address] 04/07/2023 12:31:08 04/07/2023 14:06:45 Tick bite 88722821 W57.XXXA Puncture w ound of left upper arm 5218237520 3009011 S41.132A [id number] Benjamin Blue NP [address] [place] [address] 05/19/2023 11:13:01 05/19/2023 13:12:13 Acute bronchitis 83373267 J20.9 [id number] Benjamin Blue NP [address] [place] [address] 07/06/2023 12:31:59 07/08/2023 08:24:28 Left without being seen 5823395767 9102 Z53.21 [id number] ALEJANDRA GOLDSTEIN MD [address] [place] [address] 07/06/2023 14:53:11 07/06/2023 15:43:59 Sore throat 760575018 J02.9 Sore throatClea r liquids for comfortFre [...] daily. Ganglion c yst of left hand 8608363605 71360 M67.442 Follow up with your PCP if the cyst gets worse. [id number] LIVIA Priest [address] [place] [address] 10/13/2023 11:29:56 10/13/2023 11:56:19 Benign pigmented skin lesion 330218719 L81.9 Motley hemangioma s, also known as [...] in any way, and will likely not coverage specialist time. If you start to have pain or itching in the area of your hemangioma , please follow up with your PCP or gynecology Thank you for using [facility] today, please feel free to contact our office if you have any questions or concerns. [id number] DEXTER BRUNNER NP [address] [place] [address] 11/01/2023 11:07:41 11/01/2023 12:16:57 Influenza-like illness 12545112 B34.9 Health Concerns Section Related Observation LastModified by Organization Detai ls LastModified Time None Recorded Concern Status LastModified by Organization Details LastModified Time None Recorded Advance Directives Directive None Recorded Payers Encounter Date Sequence Insurance Name Policy Number Policy Stovall Covered Member ID Stovall Member ID Guarantor Name 05/19/2023 1 [place] [employer] Lula Kaur [id number] Lula Kaur 05/19/2023 2 [facility] Lula Kaur [id number] Lula Kaur 07/06/2023 1 [place]: [facility] Lula Kaur [id number] Lula Kaur 07/06/2023 2 [facility] Lula Kaur [id number] Lula Kaur 07/06/2023 1 [place] [facility] Lula Kaur [id number] Lula Kaur 07/06/2023 2 [facility] Lula Kaur [id number] Lula Kaur 10/13/2023 1 [place] [facility] Lula Kaur [id number] Lula Kaur 10/13/2023 2 [facility] Lula Kaur [id number] Lula Kaur 11/01/2023 1 [place] [facility] Lula Kaur [id number] Lula Kaur 11/01/2023 2 [facility] Lula Kaur [id number] Lula Kaur Notes Date Note Type [...] Benjamin Blue NP [address] [place], [address], [place] - [facility] 05/19/2023 13:12:36 4 text/html Sore throatReported bypatient.Location:throat Severity:mild Quality:dull Onset/Timin days Associated Symptoms:no cough; no sputum production; no shortness of breath; no wheezing; no sinus pain; no vomiting; no nausea; No hoarseness Context:no sick contacts; no foreign travel; non-smoker ALEJANDRA GOLDSTEIN MD [address] [place], [address], [facility] 07/06/2023 16:21:48 4 text/html 73 y/o female here with red spot on her L inner labia that she is worried could be a tick bite. No pain or itching, did not see a bug in that area LIVIA Priest [address] [place], [address], [facility] 10/13/2023 11:57:57 OBGyn Episode No OBEpisode recorded.
[2024-09-02 12:05] LABS: Alanine Aminotransferase 22 U/L (0-31); Albumin Level 3.8 g/dL (3.5-5.0); Alkaline Phosphatase 77 U/L (39-117); Anion Gap 7 (12-20); Aspartate Amino Transferase 26 U/L (5-31); Bilirubin Total 0.4 mg/dL (0.0-1.0); Blood Urea Nitrogen 31 mg/dL (9-16); Calcium 9.1 mg/dL (8.4-10.2); Carbon Dioxide 27 mmol/L (22-29); Chloride 110 mmol/L (96-108); Cholesterol 109 mg/dL (<200); Estimated Glomerular Filt Rate > 60; Glucose Fasting 86 mg/dL (60-99); Glucose Random 87 mg/dL (60-115); HDL Cholesterol 36 mg/dL (>40); LDL Cholesterol Calculated 57 mg/dL (<100); Potassium 4.3 mmol/L (3.3-5.1); Sodium 140 mmol/L (135-145); Total Protein 6.5 g/dL (6.5-8.0); Triglycerides 84 mg/dL (<150)
[2024-09-02 12:07] LABS: Vitamin D 25-OH Total 28.9 ng/mL (>30)
== END 2024-09-02 10:22 | disposition home or self-care (01) ==
LOC: HO.LAB 10:21
PROVIDERS: Absent Provider Internal Medicine Cardiovascular Disease; PCP Internal Medicine; Referring Provider Student in an Organized Health Care Education/Training Program; Visit Provider Internal Medicine
DX: M81.0 Age-related osteoporosis without current pathological fracture (principal); Z79.83 Long term (current) use of bisphosphonates; E55.9 Vitamin D deficiency, unspecified; I10 Essential (primary) hypertension; E78.5 Hyperlipidemia, unspecified; I25.10 Atherosclerotic heart disease of native coronary artery without angina pectoris
CPT/HCPCS: 36415; 80053; 80061; 82306; 82310; 82565

== ENCOUNTER 2024-09-03 08:58 | Outpatient (REF) | payer MEDICARE, OTHER, SELFPAY ==
[2024-09-07 07:53] LABS: Collagen Type I C-Telopeptide 220 pg/mL (see note)
== END 2024-09-03 08:59 | disposition home or self-care (01) ==
LOC: HO.LAB 08:58
PROVIDERS: PCP Internal Medicine; Visit Provider Student in an Organized Health Care Education/Training Program
DX: M81.0 Age-related osteoporosis without current pathological fracture (principal); Z79.83 Long term (current) use of bisphosphonates; E55.9 Vitamin D deficiency, unspecified
CPT/HCPCS: 36415; 82523

== ENCOUNTER 2024-09-04 11:39 | Outpatient (AMB) | payer MEDICARE, OTHER, SELFPAY ==
--- NOTE | 2024-09-04 11:41 | A.OFFVIS_ITS ---
Vital Signs 09/04/24 11:46 Height 5 ft Weight 99 lb 3.328 oz BMI 19.4 BP 100/72 Blood Pressure Location Lt brachial Position Sitting Pulse 67 Pulse Source Pulse Oximeter Pulse Oximetry (%) 100 Oxygen Delivery Method Room Air Intake Visit Reasons: ostoporosis Intake Note: Patient presents today for Osteoporosis follow up. Allergies No Known Allergies Allergy (Verified 09/04/24 11:46) Medication List - Last Reconciled 09/04/24 by Latisha Nicholson MD alendronate 70 mg PO QWEEK aspirin 81 mg PO DAILY atorvastatin 20 mg PO BEDTIME calcium carbonate 600 mg PO BID 90 days cholecalciferol (vitamin D3) 125 mcg PO DAILY 90 days loratadine (Allergy Relief (loratadine)) 10 mg PO DAILY PRN magnesium 200 mg PO DAILY metoprolol succinate ER 25 mg PO DAILY HPI Comments Details: Patient is a 73-year-old female with hyperlipidemia, allergic rhinitis, hypertension, age-related osteoporosis and vitamin-D deficiency who presents for follow-up. Interval History: Patient last seen 03/06/2024 with me. At that time patient was stable no complaints. Alendronate 70 mg weekly continued. Denies falls, fractures, instability, back pain. Has been tolerating her alendronate weekly. Supplements with vitamin-D, magnesium and calcium. Rheumatologic History: Diagnosed with osteoporosis in 2006. Has been on alendronate since then. Was on a drug holiday but her alendronate was restarted 05/2022 Current Rheumatology Medication(s): Alendronate 70mg weekly Vitamin D 2000U daily Calcium PFSH Medical History Long-term current use of bisphosphonate Skin lesion Hypovitaminosis D Allergic rhinitis Age related osteoporosis HTN (hypertension) Hyperlipemia Post-menopausal bleeding Surgical History H/O colonoscopy History of wisdom tooth extraction Family History Father CVD (cardiovascular disease) Stroke Staph infection Mother Hypertension CVD (cardiovascular disease) Non-alcoholic cirrhosis Brother Healthy adult Social History Housing: House Alcohol intake: never Patient Tobacco Use Status: Never used Tobacco Tobacco use type: Cigarette e-Cigarette/Vaping Use: Never Used Second Hand Smoke Exposure: No service: No Current occupational status: employed Current occupational exposures/hazards: No Gender identity: Female Cognitive needs: No Hearing needs: No Vision needs: Yes Female Reproductive History Menstrual Age of Menarche: 10 Review of Systems Const Details: Review of Systems Constitutional: Denies fever, chills, weight loss ENT: Denies vision changes, eye pain or eye redness, dental caries, dry mouth GI: Denies nausea, vomiting, diarrhea, abdominal pain, change in BM Pulm: Denies SOB, OCHOA, hemoptysis, wheezing Cards: Denies chest pain, palpitations Skin: Denies Raynaud's, rash, nail changes, photosensitivity, RECRUITING INTERN: Denies headaches, weakness, paresthesias, recurrent falls MSK: as per HPI All other systems reviewed and are unremarkable except noted above Physical Exam Vital Signs: Last Vital Signs Pulse 67 09/04/24 11:46 BP 100/72 09/04/24 11:46 Pulse Ox 100 09/04/24 11:46 Oxygen Delivery Method Room Air 09/04/24 11:46 BMI result Body Mass Index 19.4 Vital signs reviewed Physical Examination CONSTITUITIONAL Patient alert and cooperative. Well appearing and in no apparent painful distress HEENT Conjunctiva and sclera clear. ?Pupils equal round and reactive to light. ?No lymphadenopathy. ? CHEST/RESPIRATORY SYSTEM Normal respiratory effort and able to speak in complete sentences. ?Clear to auscultation bilaterally. ?No crackles, rales, rhonchi, wheezes heard. CARDIAC SYSTEM Regular rate and rhythm. ?S1 and S2 heard no murmurs. ?Radial pulses intact bilaterally MSK Hands: ?Able to make a fist. Prominent [place] nodes noted throughout. Wrists: ?Full range of motion at the wrists without pain. ?No tenderness to palpation or synovitis noted to the wrists. Elbows: Full range of motion without pain. No tenderness, weakness, swelling, increased warmth or erythema. Shoulders: Full active range of motion without pain. No tenderness, weakness, swelling, increased warmth or erythema. Knees: ?Full range of motion. ?No tenderness, swelling, increased warmth or erythema.?No effusion or crepitations Ankles: Full range of motion. ?No tenderness, swelling, increased warmth or erythema.? Feet: ?Negative squeeze test. ?No tenderness to palpation or swelling of the MTPs. Tender points:?No tenderness to palpation of the bilateral trapezius, supraspinatus, greater trochanters, anterior costochondral junctions, bilateral gluteal areas, bilateral suboccipital muscle insertions SKIN Skin intact without rashes. Results Reviewed Results Reviewed: Laboratory Tests 09/02/24 10:42 Sodium 140 Potassium 4.3 Chloride 110 H Carbon Dioxide 27 BUN 31 H Creatinine 0.66 AST 26 ALT 22 Alkaline Phosphatase 77 Total Protein 6.5 25-OH Vitamin D Total 28.9 L DEXA 12/2022 FINDINGS: LEFT FEMUR, NECK: Current: BMD 0.692 g/cm2, Z-score -0.2, T-score -2.5, osteoporosis. Prior: BMD 0.687 g/cm2. Baseline: BMD 0.817 g/cm2. LEFT FEMUR, TOTAL: Current: BMD 0.679 g/cm2, Z-score -0.5, T-score -2.6, osteoporosis, 0.3% increase from previous, 19.5% decrease from baseline (<5% change is not significant). Prior: BMD 0.677 g/cm2. Baseline: BMD 0.844 g/cm2. AP SPINE L1-L4: Current: BMD 0.724 g/cm2, Z-score -1.4, T-score -3.8, osteoporosis, 2.0% decrease from previous, 16.2% decrease from baseline (<5% change is not significant). Prior: BMD 0.739 g/cm2. Baseline: BMD 0.864 g/cm2. Assessment & Plan Assessment & Plan (1) Age related osteoporosis: Comment: Dx 2006. Alendronate [id number]. Drug holiday Alendronate restarted 05/2022 DEXA 11/2020: AP Spine -3.7, Left femur neck -2.5, Left femur total -2.6 DEXA 12/2022: AP Spine -3.8, Left femur neck -2.5, Left femur total -2.6 Code(s): M81.0 - Age-related osteoporosis without current pathological fracture Category: Medical Qualifiers: Presence of current pathological fracture: without current pathological fracture Qualified Code(s): M81.0 - Age-related osteoporosis without current pathological fracture Plan: #Osteoporosis Patient is a 74-year-old female with with osteoporosis on alendronate. No fractures since last visit. She fell over the winter on ice but sustained no fractures. Vitamin-D low and so it was increased from 2000 units daily to 5000 units daily. Discussed with patient that she is due for a repeat DEXA scan. 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 Category: Medical Plan: #Long-term Use of Bisphosphonates Risks and benefits of bisphosphonates in the management of osteoporosis Benefits include improved bone density, decreased fracture risk Risks include atypical femoral fractures, GI upset, esophageal strictures Contraindicated in patients with a creatinine clearance < 30 to 35 ml/min Keep vitamin-D at least 35 ng/mL Plan I spent 22 minutes reviewing the record and labs, seeing the patient, discussing the treatment plan and documenting in the medical record Orders: Orders XR DEXA axial skeleton 6 Months E55.9 - Vitamin D deficiency, unspecified, M81.0 - Age-related osteoporosis without current pathological fracture Vitamin D 25-OH Total 6 Months E55.9 - Vitamin D deficiency, unspecified, M81.0 - Age-related osteoporosis without current pathological fracture Comprehensive Met. Panel 6 Months E55.9 - Vitamin D deficiency, unspecified, M81.0 - Age-related osteoporosis without current pathological fracture Medications: Changed From cholecalciferol (vitamin D3) 50 mcg PO DAILY 90 days 90 caps 1RF E55.9 - Vitamin D deficiency, unspecified To cholecalciferol (vitamin D3) 125 mcg PO DAILY 90 days 90 caps 1RF E55.9 - Vitamin D deficiency, unspecified Coding Level of Care Code Est Pt Level 3 (70744) Complex EM visit Add On G2211 Diagnoses Age-related osteoporosis without current pathological fracture M81.0 Presence of current pathological fracture: without current pathological fracture Long-term current use of bisphosphonate Z79.83
[2024-09-04 11:46] VITALS: BP 100/72; PULSE 67; O2SAT 100; BMI 19.4
--- OUTSIDE RECORDS SUMMARY | 2024-09-04 14:07 | XMS_ITS | Data Portability ---
Author Organization LIVIA osorio [address] Address [address] [place] [address] Care Team Providers Care Alteration Tailor Name Role Phone [facility] Primary Care Provider Assessment Encounter Date [...] Selzer Cold/Flu Effervescent Pills 3. Saline Nasal [facility] Try an avoid other people and wash [...] specimen 2023 024 SUNG _олег dang, [address] [place], [address], 4 12:57:30 rapid flu (A+B) 2023 024 SUNG [facility]100[facility] [address] [place], [address], 4 12:57:19 Referral None recorded. Procedures None recorded. Surgeries None recorded. Imaging XR, chest, 2 view 2022 023 [facility] (Imaging), [address] [facility], [place], [address], 4 10:07:31 Medication Orders albuterol sulfate 2.5 mg/3 mL (0.083 %) solution for nebulizatio n 2022 023 [email or web address] Not available 4 11:32:24 ipratropium bromide 0.02 % solution for inhalation 2022 023 [email or web address] Not available 3 13:27:01 prednisone 20 mg tablet 2022 023 [email or web address] [facility], [address] [place], [address], 4 11:32:11 albuterol sulfate HFA 90 mcg/actuati on aerosol inhaler 2022 023 [email or web address] [facility], [address] [place], [address], 4 11:32:27 Allergy Relief (fluticason e) 50 mcg/actuati on nasal spray,suspe nsion 2022 023 [facility], [address] [place], [address], 3 13:10:28 benzonatate 100 mg capsule 2022 023 SUNG [facility], [address] [place], [address], 13:10:30 Patient TargetsNo targets recorded. Patient Instructions Encounter Date Encounter Id Patient Instructions Last Modified By Organization Details Last Modified Time 05/19/2023 [id number] peak flow* [email or web address] Not available 04/22 13:07:33 [...] expected. [email or web address] Not available 05/19/2023 12:45:08 07/06/2023 [id number] You can use tylenol for pain every 4-6 hours as needed [email or web address] Not available 07/06/2023 15:39:45 11/01/2023 [id number] allergies: care instructions [email or web address] Not available 11/01/2023 11:48:27 Reason for Referral None Reported. Results Created Date Observation Date Name Description Value Unit Range Abnormal Flag Note LastModifiedBy Organization Detail LastModifiedTime 05/19/20 23 05/19/2023 peak flow* Pre (L/min) 100 Not Available 2099 олег [address] [place], [address], 05/19/2023 12:43:53 05/19/20 23 05/19/2023 peak flow* Post (L/min) 250 Not Available [id number] _олег [address] [place], [address], 05/19/2023 12:43:53 05/19/20 23 05/19/2023 peak flow* Pulse 82 Not Available davin mcconnell [address] [place], [address], 05/19/2023 12:43:53 05/19/20 23 05/19/2023 peak flow* Oxygen Saturation 98% Not Available [id number] _[address] [place], [address], 05/19/2023 12:43:53 11/01/19 24 11/01/2023 rapid flu (A+B) Unknown Analyte negati ve Not Available lida avila [address] [place], [address], 11/01/2023 11:48:10 11/01/19 24 11/01/2023 rapid flu (A+B) Unknown Analyte negati ve Not Available 2099lida avila [address] [place], [address], 11/01/2023 11:48:10 11/01/19 24 11/01/2023 rapid flu (A+B) Unknown Analyte yes Not Available [facility] [address] [place], [address], 11/01/2023 11:48:10 11/01/19 24 11/01/2023 SARS CoV 2 (COVI D-19) Ag, QL, IA, upper respi rator y speci men Unknown Analyte negati ve Not Available [address] [place], [address], 11/01/2023 11:48:09 11/01/19 24 11/01/2023 SARS CoV 2 (COVI D-19) Ag, QL, IA, upper respi rator y speci men Unknown Analyte yes Not Available _ [address] [place], [address], 11/01/2023 11:48:09 05/29/19 24 05/20/2023 XR, chest , 2 view No observ ation record ed. [facility] [address] [place], [address], 07/28/2023 13:52:06 06/12/19 24 05/20/2023 XR, chest , 2 view No observ ation record ed. [facility] (Imaging) [address] [place], [address], 08/02/2023 17:00:57 Result Notes None recorded. Problems Name Problem SNOMED Code Status Onset Date Resolution Date Notes Provider Name and Address Organization Details Recorded Time Hypertensive disorder 08613932 Active 2022 CEASAR zhang PA - [facility] 3 13:43:57 Hyperlipidem ia 81797260 Active 2022 CEASAR zhang PA - [facility] 3 13:44:06 Lyme disease 45488392 Completed TOMÁS zhang, PA - [facility] 3 13:41:07 Influenza-li ke illness 94019228 Active 2023 DEXTER BRUNNER NP [address] [facility] [address] , [place], [address] , [place] - [facility] 4 11:47:31 [...] Time 05/20/2023 XR, chest, 2 view completed [facility] [address] [place], [address], 07/28/2023 13:52:06 05/20/2023 XR, chest, 2 view completed [facility] ([facility]) [address] [place], [address], 08/02/2023 17:00:57 Procedure Notes None recorded. Medical [...] e 50 mcg/actua tion nasal spray,[facility] 1 spray every day by intranas al [...] Updated DateTime 3 152.4 cm 19.1 kg/m2 97864.0 5 g 98 % 98 % 98.2 [...] Updated DateTime 4 152.4 cm 19.1 kg/m2 43342.0 5 g 152.4 cm 19.1 kg/m2 79597.0 5 g 98 % 98 % 0 [...] Updated DateTime 4 152.4 cm 19.5 kg/m2 07767.2 4 g 97.7 [degF] 18 /min 65 [...] Updated DateTime 4 152.4 cm 19.5 kg/m2 25078.2 4 g 95 /min 0 97 % 97 % 18 /min 97.5 [degF] 120 mm[Hg] 77 mm[Hg] Lynnette Burton PA - [facility] 4 11:36:29 Social History Question Answer Notes LastModified by Organizat ion Details LastModified Time Tobacco Smoking Status Never Smoker CEASAR zhang PA - [facility] 10/07/2022 13:44:28 What Is Your Level [...] [facility] 10/07/2022 13:42:43 Pneumococcal conjugate PCV20, polysaccharide JLB897 conjugate, adjuvant, PF 3 completed CEASAR FERRARA [...] SNOMED-CT Code Diagnosis ICD10 Code Diagnosis Note [id number] [address] [address] [place] [address] 09/28/2021 09:42:38 09/28/2021 13:01:56 [id number] [facility] [place] [place] [address] 12/12/2020 14:20:47 12/12/2020 15:27:27 [id number] [address] [facility] [place] [address] 11/25/2020 11:02:37 11/25/2020 12:14:55 [id number] [address] [place] [address] 08/14/2020 09:43:35 08/14/2020 10:25:50 [id number] [address] [place] [address] 11/08/2019 18:48:17 11/08/2019 19:36:14 [id number] [address] [facility] [place] [address] 10/23/2020 09:52:29 10/23/2020 10:37:23 [id number] [address] [place] [address] 08/26/2020 11:13:00 08/26/2020 12:24:17 [id number] 20995_Chi Carin Zamorar [address] [facility] [place] [address] 12/19/2021 11:04:32 12/19/2021 13:26:47 [id number] [address] [place] [address] 11/24/2020 11:03:58 11/24/2020 11:42:10 [id number] LIVIA GARCIA [address] [address] 10/07/2022 12:22:16 10/07/2022 15:13:39 Hypertensive disorder 40292549 I10 Your blood pressure was elevated today - you need to follow up with your PCP for this. Medication may need to be adjusted. Please keep a journal of AM and PM readings from a home cuff. This will help adjust medication s. Pain of right thigh 3169 115442 50858 M79.651 X-ray does not show any fracture of bony lesions.No evidence of any fracture on the x-ray. I am going to send it to the radiologis t to review. I will call you if there is any discrepanc ies. Strain of right quadriceps muscle [id number] 9878948 S76.111A Based on exam, I think you differenti al would be either a strain of the quadricep muscle or a pinched nerve in the region of your hip. I am going to write you an antiinflam matory medication to start taking. [id number] Benjamin Blue NP [address] [address] 12/09/2022 13:58:31 12/09/2022 14:58:47 Exposure to SARS-CoV-2 064700580 Z20.822 COVID-19 916096807 U07.1 Acute sinusitis 82435693 J01.90 [id number] [place] [address] [place] [address] 01/26/2023 09:55:53 01/26/2023 10:39:52 Localized eruption of skin 537426809 R21 appears to be a previous tick bit, no tick seen today but would suggest prophylact ic dose Doxycyclin e Advised to [place] the area and monitor for increasing size [...] severe headache, dizziness, or other concerning symptoms [id number] LIVIA MATTHEWS [address] [place] [address] 01/31/2023 13:32:34 01/31/2023 14:07:42 Suspected Lyme disease 568851549 Z20.818 [id number] Benjamin Blue [place] [address] [place] [address] 04/07/2023 12:31:08 04/07/2023 14:06:45 Tick bite 79538506 W57.XXXA Puncture w ound of left upper arm 6428338745 0791320 S41.132A [id number] Benjamin Blue NP [address] [place] [address] 05/19/2023 11:13:01 05/19/2023 13:12:13 Acute bronchitis 17108363 J20.9 [id number] Benjamin Blue NP [address] [place] [address] 07/06/2023 12:31:59 07/08/2023 08:24:28 Left without being seen 5019308231 9102 Z53.21 [id number] ALEJANDRA GOLDSTEIN MD [address] [place] [address] 07/06/2023 14:53:11 07/06/2023 15:43:59 Sore throat 245113905 J02.9 Sore throatClea r liquids for comfortFre sh Jak Root Tea-Cut up fresh ajk root and boil it till fragrant. drink [...] daily. Ganglion c yst of left hand 2980654184 22278 M67.442 Follow up with your PCP if the cyst gets worse. [id number] LIVIA Priest [address] [place] [address] 10/13/2023 11:29:56 10/13/2023 11:56:19 Benign pigmented skin lesion 040292358 L81.9 Motley hemangioma s, also known as [...] any way, and will likely not change house attendant time. If you start to have pain or itching in the area of your hemangioma , please follow up with your PCP or gynecology Thank you for using [facility] today, please feel free to contact our office if you have any questions or concerns. [id number] DEX[place]UNNER [place] [address] [place] [address] 11/01/2023 11:07:41 11/01/2023 12:16:57 Influenza-like illness 36871407 B34.9 Health Concerns Section Related Observation LastModified by Organization Detai ls LastModified Time None Recorded Concern Status LastModified by Organization Details LastModified Time None Recorded Advance Directives Directive None Recorded Payers Encounter Date Sequence Insurance Name Policy Number Policy Stovall Covered Member ID Stovall Member ID Guarantor Name 05/19/2023 1 [place] [employer] Lula Kaur [id number] Lula Kaur 05/19/2023 2 [facility] Lula Kaur [id number] Lula Kaur 07/06/2023 1 MEDICARE [place]: [facility] Lula Kaur [id number] Lula Kaur 07/06/2023 2 [facility] Lula Kaur [id number] Lula Kaur 07/06/2023 1 [place]: [facility] Lula Kaur [id number] Lula Kaur 07/06/2023 2 [facility] Lula Kaur [id number] Lula Kaur 10/13/2023 1 [place]: [facility] Lula Kaur [id number] Lula Kaur 10/13/2023 2 [facility] Lula Kaur [id number] Lula Kaur 11/01/2023 1 MEDICARE [place]: [facility] Lula Kaur [id number] Lula Kaur 11/01/2023 2 [facility] Lula Kaur [id number] Lula Kaur Notes Date Note Type [...] Benjamin Blue NP [address] [place], [address], PA - [facility] 05/19/2023 13:12:36 4 text/html Sore throatReported bypatient.Location:throat Severity:mild Quality:dull Onset/Timin days Associated Symptoms:no cough; no sputum production; no shortness of breath; no wheezing; no sinus pain; no vomiting; no nausea; No hoarseness Context:no sick contacts; no foreign travel; non-smoker ALEJANDRA GOLDSTEIN MD [address] [place], [address], [facility] 07/06/2023 16:21:48 4 text/html 73 y/o female here with red spot on her L inner labia that she is worried could be a tick bite. No pain or itching, did not see a bug in that area LIVIA Priest [address] [place], [address], [facility] 10/13/2023 11:57:57 OBGyn Episode No OBEpisode recorded.
== END 2024-09-04 12:12 | disposition home or self-care (01) ==
LOC: HO.RHE 11:40
PROVIDERS: PCP Internal Medicine; Visit Provider Student in an Organized Health Care Education/Training Program
DX: M81.0 Age-related osteoporosis without current pathological fracture (principal); Z79.83 Long term (current) use of bisphosphonates
CPT/HCPCS: 99213; G2211

== ENCOUNTER → 2024-09-04 11:39 | Outpatient (BNVA) | payer MEDICARE, OTHER, SELFPAY | PROVIDERS: PCP Internal Medicine; Visit Provider Student in an Organized Health Care Education/Training Program | DX: M81.0 Age-related osteoporosis without current pathological fracture (principal); Z79.83 Long term (current) use of bisphosphonates | CPT/HCPCS: 99212 ==

== ENCOUNTER 2025-01-01 10:39 | Outpatient (REF) | payer MEDICARE, OTHER, SELFPAY ==
--- NOTE | ~2025-01-01 | MM_ITS ---
EXAMINATION: MM SCREENING DIGITAL BREAST TOMOSYNTHESIS, BILATERAL CLINICAL INFORMATION: Screening. Asymptomatic. COMPARISON: Comparison made to multiple prior, most recent December 27, 2023, and most remote April 20, 2018. TECHNIQUE: Digital breast tomosynthesis is performed in both the craniocaudal and mediolateral oblique views along with computer-aided detection (CAD). FINDINGS: BREAST COMPOSITION: The breasts are heterogeneously dense, which may obscure small masses (ACR BI-RADS breast composition Category c). BILATERAL BREASTS: No significant masses, suspicious calcifications or other abnormalities are seen in either breast. MM/MM tomosynthesis screening BI IMPRESSION: BILATERAL BREASTS: Negative, no mammographic evidence of malignancy. Normal interval follow-up is recommended in 12 months. ASSESSMENT: BI-RADS 1 - Negative RECOMMENDATION: Routine annual mammography screening. FOLLOW-UP: 1 year F/U This examination should not preclude the clinical evaluation of a suspicious palpable abnormality. This patient's information was entered into a reminder system with a target due date for their next mammogram. Electronically signed by: Adriano Prado MD 01/06/2025 08:11 PM EDT
--- OUTSIDE RECORDS SUMMARY | 2025-01-01 11:29 | XMS_ITS | Patient Health Record ---
Author Organization [facility] Address [address] [place] [address] Care Team Providers Care Water/Wastewater Project Manager Name Role Phone Felipe Milla Primary Care Provider Ha Gonzalez Jr Unavailable Reason For Referral No Information Medications Medication SIG (Take, Route, Frequency, Duration) Notes Start Date End Date Status Magnesium 300 MG 1 capsule with a kelli l Orally Once a day Active Vitamin D 1000 UNIT 1 tablet Orally Once a day Active Vitamin C 500 MG 1 tablet Orally ocasssionally Active Multi Vitamin/Minerals - 1 Orally ocassionally Active Vitamin B Complex - 1 Orally ocassionally Active Lutein 6 MG 1 capsule with a kelli l Orally ocassionally Active Colyte with Flavor Packs 240 GM As directed Orally Over the specified time. for 1 day(s) Active Calcium 600 MG 1 tablet with meals Orally Twice a day Active Immunizations Vaccine Route Administration Date Status Comme nts Influenza Unknown 02/19/2018 Administered Social History Tobacco Use: Social History Observation Description Date Details (start date - stop date) Never Smoker NA - NA Tobacco Use/Smoking Question Answer Notes Patient is a nonsmoker Alcohol Screen Question Answer Notes Did you have a drink containing alcohol in the p ast year? No Points 0 Interpretation Negative Problems Problem Type SNOMED Code ICD Code Onset Dates Problem Status W/U Status Risk Notes Problem 811679000 Colon cancer screening (Z12.11) Active confirmed Plan Of Treatment Future Test Test Name Order Date COLONOSCOPY 04/18/2018 Insurance Providers Payer Name Payer Address Payer Phone Subscriber Number Group Number Insured Name Patient Relationship to Insured Coverage Start Date Coverage End Date MEDICARE OF [place] [address] [place] [id number] KATY ROGERS Self - patient is the insured [facility] [address] [place] [address] [id number] KATY ROGERS Self - patient is the insured Medical (General) History Medical History History ICD Code Denies [place],DM,CVA,Lung disease,renal dise ase Surgical History Surgery Date(Month/Year) oral surgery
--- OUTSIDE RECORDS SUMMARY | 2025-01-01 11:29 | XMS_ITS | Clinical Summary ---
Author Organization [facility] Address [address] [facility] [address] [place] [address] Phone Care Team Providers Care Business Transformation Consultant Name Role Phone Rubina Dorman DO Primary Care Provider +1- [phone] Allergies No known active allergies Medications alendronate (FOSAMAX) 70 MG tablet Active atorvastatin (LIPITOR) 20 MG tablet Active metoprolol succinate (TOPROL-XL) 25 MG 24 hr tablet Acti ve aspirin 81 mg chewable tablet Take 81 mg by mouth daily. Active doxycycline monohydrate (MONODOX) 100 MG capsule Take 1 capsule (100 mg total) by mouth 2 (two) times a day for 10 days. 20 capsule 12/09/19 25 Active Problems No known active problems Encounters Date Type Department Care Team Description 11/28/2024 12:00 PM EDT [facility] Visit [facility] [address] [place] [address] Florence Villatoro, MUSA Erythema migrans (Lyme disease) (Primary Dx) from Last 3 Months Social History Tobacco Use Types Packs/Day Years Used Date Smoking Tobacco: Never Passive Smoke Exposure: Never Smokeless Tobacco: Never Tobacco Cessation:Counseling Given: Not Answered Alcohol Use Standard Drinks/Week Comments Never 0 (1 standard drink = 0.6 oz pur e alcohol) Education Answer Date Recorded Are you interested in more education? Not on eleni e 11/25/2023 Are you concerned about learning? Not on file 11/25/2023 No 11/25/2023 No 11/25/2023 Digital Access Answer Date Recorded No 11/25/2023 No 11/25/2023 Reliable internet access at home? Not on file 11/25/2023 Device with a working camera? Not on file Comments Unknown Sex and Gender Information Value Date Recorded Sex Assigned at Not on file Legal Sex Female 10:04 PM EDT Gender Identity Not on file Sexual Orientation Not on file Last Filed Vital Signs Vital Sign Reading Time Taken Comments Blood Pressure 116/80 11/28/2024 12:01 PM EDT Pulse 85 11/28/2024 12:01 PM EDT Temperature 36.7 C (98 F) 11/28/2024 12:01 PM EDT Respiratory Rate 16 11/28/2024 12:01 PM EDT Oxygen Saturation 98% 11/28/2024 12:01 PM EDT Inhaled Oxygen Concentration - - Weight 45.4 kg (100 lb) 11/25/2023 2:21 PM EDT Height 152.4 cm (5') 11/25/2023 2:21 PM EDT Body Mass Index 19.53 11/25/2023 2:21 PM EDT Plan of Treatment Health Maintenance Due Date Last Done Comments LIPID PANEL 1948 DEPRESSION SCREENING 1960 HEPATITIS C SCREENING 1966 ZOSTER VACCINES (1 of 2) 1998 OSTEOPOROSIS SCREENING INITIAL (ONE-TIME) 2013 RSV VACCINE (1 - 1-dose 75+ series) 08/10/2023 COVID-19 VACCINE (2023- season) 2024 05/23/2024, 04/04/2023, 02/23/2022, Additional history exists Adult Td,Tdap Booster 11/07/2029 11/08/2019, 014 PNEUMOCOCCAL VACCINES (50+ years) Completed 07/15/2022 SMOKING STATUS SCREENING (Once After 26 Yrs) Completed 11/28/2024 HEPATITIS A VACCINES Aged Out No long er eligible based on patient's age to complete this topic HIB VACCINES Aged Out No longer eligi ble based on patient's age to complete this topic MENINGOCOCCAL VACCINES (ACWY) Aged Out No longer eligible based on patient's age to complete this topic MENINGOCOCCAL VACCINES (B) Aged Out N o longer eligible based on patient's age to complete this topic Medical Devices Not on file Insurance MEDICARE PART A & B [facility] MEDICARE ENHANCE SUPPLEMENT MEDICARE PART A & B [facility] MEDICARE ENHANCE SUPPLEMENT MEDICARE PART A & B MEDICARE ENHANCE SUPPLEMENT MEDICARE PART A & B [facility] MEDICARE ENHANCE SUPPLEMENT MEDICARE PART A & [place] [address] [place] [address] MEDICARE ENHANCE SUPPLEMENT MEDICARE PART A & B [facility] MEDICARE ENHANCE SUPPLEMENT MEDICARE PART A & B [facility] MEDICARE ENHANCE SUPPLEMENT MEDICARE PART A & B [facility] MEDICARE ENHANCE SUPPLEMENT MEDICARE PART A & B [facility] MEDICARE ENHANCE SUPPLEMENT Care Teams Business Transformation Consultant Relationship Specialty Start Date End Date Rubina Dorman DO PCP - General 03/07/17 Additional Source Comments The information contained in this document represents components of the legal health record. It is not the complete legal health record.[facility]
== END 2025-01-01 10:40 | disposition home or self-care (01) ==
LOC: HO.MAMMO 10:39
PROVIDERS: PCP Internal Medicine; Visit Provider Internal Medicine
DX: Z12.31 Encounter for screening mammogram for malignant neoplasm of breast (principal)
CPT/HCPCS: 77063; 77067

== ENCOUNTER → 2025-01-01 10:45 | Outpatient (BNV) | payer MEDICARE, OTHER, SELFPAY | PROVIDERS: PCP Internal Medicine; Visit Provider Radiology Body Imaging | DX: Z12.31 Encounter for screening mammogram for malignant neoplasm of breast (principal) | CPT/HCPCS: 77063; 77067 ==

== ENCOUNTER 2025-01-07 11:49 | Outpatient (REF) | payer MEDICARE, OTHER, SELFPAY ==
--- OUTSIDE RECORDS SUMMARY | 2025-01-07 13:20 | XMS_ITS | Patient Health Record ---
Author Organization [facility] Address [address] [place] [address] Care Team Providers Care Sales And Marketing Vice President Name Role Phone Felipe Milla Primary Care [...] Problem Status W/U Status Risk Notes Problem 046005565 Colon cancer screening (Z12.11) Active confirmed Plan Of Treatment Future Test Test Name Order Date COLONOSCOPY 04/18/2018 Insurance Providers Payer Name Payer Address Payer Phone Subscriber Number Group Number Insured Name Patient Relationship to Insured Coverage Start Date Coverage End Date MEDICARE OF [place] [address] [place] [id number] [phone] [id number] KATY ROGERS Self - patient is the insured [facility] [address] [place] [address] [id number] KATY ROGERS Self - patient is the insured Medical (General) History Medical History History ICD Code Denies [place],DM,CVA,Lung disease,renal dise ase Surgical History Surgery Date(Month/Year) oral surgery
--- OUTSIDE RECORDS SUMMARY | 2025-01-07 13:20 | XMS_ITS | Clinical Summary ---
Author Organization [facility] Address [address] [facility] [address] [place] [address] Phone Care Team Providers Care Security Field Supervisor Name Role Phone Rubina Dorman DO Primary Care Provider +1- [phone] Allergies No known active allergies Medications alendronate [...] Office Visit [facility] at [address] [place] [address] Florence Villatoro, MUSA Erythema migrans (Lyme disease) [...] file Insurance MEDICARE PART A & B [facility] MEDICARE ENHANCE SUPPLEMENT MEDICARE PART A & B [facility] MEDICARE ENHANCE SUPPLEMENT MEDICARE PART A & B MEDICARE ENHANCE SUPPLEMENT MEDICARE PART A & B [facility] MEDICARE ENHANCE SUPPLEMENT MEDICARE PART A & [place] [address] [address] MEDICARE ENHANCE SUPPLEMENT MEDICARE PART A & B [facility] MEDICARE ENHANCE SUPPLEMENT MEDICARE PART A & B [facility] MEDICARE ENHANCE SUPPLEMENT MEDICARE PART A & B [facility] MEDICARE ENHANCE SUPPLEMENT MEDICARE PART A & B [facility] MEDICARE ENHANCE SUPPLEMENT Care Teams Security Field Supervisor Relationship Specialty Start Date End Date Rubina Dorman DO PCP - General 03/07/17 Additional Source Comments The information contained in this document represents components of the legal health record. It is not the complete legal health record.[facility]
[2025-01-08 07:18] LABS: Lyme Abs Screen <0.90 index
== END 2025-01-07 11:50 | disposition home or self-care (01) ==
LOC: HO.LAB 11:49
PROVIDERS: PCP Internal Medicine; Visit Provider Internal Medicine
DX: Z01.84 Encounter for antibody response examination (principal); W57.XXXA Bitten or stung by nonvenomous insect and other nonvenomous arthropods, initial encounter
CPT/HCPCS: 36415; 86617; 86618

== ENCOUNTER 2025-02-11 10:53 | Outpatient (REF) | payer MEDICARE, OTHER, SELFPAY ==
--- NOTE | ~2025-02-11 | MM_ITS ---
EXAMINATION: BONE DENSITOMETRY CLINICAL INDICATION: Age-related osteoporosis without fracture. COMPARISON: 12/28/2022, 11/21/2020, 04/20/2018 and aspiration as far as 10/17/2006. TECHNIQUE: Using a [employer] dual-energy x-ray absorptiometry was performed of the lumbar spine and left humeral neck. The images are of good technical quality. Summary results are attached. FINDINGS: AP SPINE L1-L4: BMD 0.752 g/cm2, Z-score -1.1, T-score -3.6, previous T score -3.8 LEFT FEMUR, NECK: BMD 0.695 g/cm2, Z-score -0.1, T-score -2.5,. Previous T score is -2.5 LEFT FEMUR, TOTAL: BMD 0.673 g/cm2, Z-score -0.4, T-score -2.7, previous T score -2.6 IDENTIFIED RISK FACTORS: None listed. HISTORY OF FRACTURE: None listed. MEDICATIONS: None listed. MM/XR DEXA axial skeleton IMPRESSION: 1. DIAGNOSIS: Osteoporosis based on the lowest T-score value of -2.7 in the total left femoral neck applying World Health Organization criteria. 2. 10-YEAR FRACTURE RISK PREDICTION, FRAX: 15.0%. 3. Treatment Recommendations: NOF guidelines recommend consideration for treatment in postmenopausal women and men age 50 and older presenting with the following: -A hip or vertebral (clinical or morphometric) fracture. -T-score less than or equal to -2.5 at the femoral neck or spine after appropriate evaluation to exclude secondary causes. -Low bone mass at the hip or spine and a 10-year fracture probability by FRAX of greater than or equal to 3% for hip fracture or greater than or equal to 20% for major osteoporotic fracture based on the [place] adapted WHO algorithm. FUTURE SCAN RECOMMENDATION: People with diagnosed cases of osteoporosis or at high risk for fracture should have regular bone mineral density tests. For patients eligible for Medicare, routine testing is allowed once every 2 years. The testing frequency can be increased to one year for patients who have rapidly progressing disease, those who are receiving or discontinuing medical therapy to restore bone mass, or have additional risk factors. Electronically signed by: Jaya Gómez MD 02/11/2025 03:54 PM EDT
--- OUTSIDE RECORDS SUMMARY | 2025-02-11 13:27 | XMS_ITS | Patient Health Record ---
Author Organization [facility] Address [address] [place] [address] Care Team Providers Care Prefabricator Name Role Phone Felipe Milla Primary Care Provider Ha Gonzalez Jr Unavailable [phone] Reason For Referral No Information Medications Medication [...] Problem Status W/U Status Risk Notes Problem [id number] Colon cancer screening (Z12.11) Active confirmed Plan Of Treatment Future Test Test Name Order Date COLONOSCOPY 04/18/2018 Insurance Providers Payer Name Payer Address Payer Phone Subscriber Number Group Number Insured Name Patient Relationship to Insured Coverage Start Date Coverage End Date MEDICARE OF [place] [address] [place] [id number] KATY ROGERS Self - patient is the insured [facility] [address] [place] [address] [id number] KATY ROGERS Self - patient is the insured Medical (General) History Medical History History ICD Code Denies [place],DM,CVA,Lung disease,renal dise ase Surgical History Surgery Date(Month/Year) oral surgery
--- OUTSIDE RECORDS SUMMARY | 2025-02-11 13:28 | XMS_ITS | Clinical Summary ---
Author Organization [facility] Address [address] [facility] [address] [place] [id number] Phone Care Team Providers Care Shoemaking Finisher Name Role Phone Rubina Dorman DO Primary Care Provider [phone]- [phone] Allergies No known active allergies Medications alendronate (FOSAMAX) 70 MG tablet Active atorvastatin (LIPITOR) 20 MG tablet Active metoprolol succinate (TOPROL-XL) 25 MG 24 hr tablet Acti ve aspirin 81 mg chewable tablet Take 81 mg by mouth daily. Active Active Problems No known active problems Encounters Date Type Department Care Team Description 01/14/2025 Telephone [facility] Rheumatology [address] [place] [address] Unknown, Unknown, Appointment 11/28/2024 12:00 PM EDT Office Visit [facility] at [address] [place] [address] Florence Villatoro PA-C Erythema migrans (Lyme disease) (Primary Dx) from [...] VACCINE (1 - 1-dose 75+ series) 08/10/2023 INFLUENZA VACCINE (#1) 2024 , 02/23/2023, 03/11/2022, Additional history exists COVID-19 VACCINE ( season) 2025 05/23/2024, 04/04/2023, 02/23/2022, Additional history exists Adult [...] file Insurance MEDICARE PART A & B MEDICARE ENHANCE SUPPLEMENT MEDICARE PART A & B [facility] MEDICARE ENHANCE SUPPLEMENT MEDICARE PART A & [place] [address] [place] [address] MEDICARE ENHANCE SUPPLEMENT [facility] Address: [address] [place] [address] MEDICARE PART A & B [facility] MEDICARE ENHANCE SUPPLEMENT MEDICARE PART A & B [facility] MEDICARE ENHANCE SUPPLEMENT MEDICARE PART A & B [facility] MEDICARE ENHANCE SUPPLEMENT MEDICARE PART A & B [facility] MEDICARE ENHANCE SUPPLEMENT MEDICARE PART A & B [facility] MEDICARE ENHANCE SUPPLEMENT MEDICARE PART A & B [facility] MEDICARE ENHANCE SUPPLEMENT Care Teams Shoemaking Finisher Relationship Specialty Start Date End Date Rubina Dorman DO PCP - General 03/07/17 Additional Source Comments The information contained in this document represents components of the legal health record. It is not the complete legal health record.[facility]
== END 2025-02-11 10:54 | disposition home or self-care (01) ==
LOC: HO.MAMMO 10:53
PROVIDERS: PCP Internal Medicine; Visit Provider Student in an Organized Health Care Education/Training Program
DX: M81.0 Age-related osteoporosis without current pathological fracture (principal); E55.9 Vitamin D deficiency, unspecified
CPT/HCPCS: 77080

== ENCOUNTER → 2025-02-11 11:00 | Outpatient (BNV) | payer MEDICARE, OTHER, SELFPAY | PROVIDERS: PCP Internal Medicine; Visit Provider Radiology Diagnostic Radiology | DX: E28.39 Other primary ovarian failure (principal) | CPT/HCPCS: 77080 ==